=== PATIENT | female | born 1960 | race Caucasian/White ===

== ENCOUNTER 2024-03-18 14:38 | Outpatient (REF) | payer BC, SELFPAY ==
[2024-03-18 15:15] LABS: Influenza Virus A Antigen Negative; Influenza Virus B Antigen Negative; Internal Control Within Normal Limits; SARS-CoV-2 Ag POSITIVE (NEGATIVE)
[2024-03-18 15:16] LABS: Internal Control Within Normal Limits
== END 2024-03-18 14:39 | disposition home or self-care (01) ==
LOC: LAB 14:38
PROVIDERS: PCP Nurse Practitioner Family; Visit Provider Nurse Practitioner Family
DX: R05.1 Acute cough (principal); R68.83 Chills (without fever); R09.89 Other specified symptoms and signs involving the circulatory and respiratory systems; R50.9 Fever, unspecified; R52 Pain, unspecified
CPT/HCPCS: 87635; 87804; 87811

== ENCOUNTER 2024-07-23 14:41 | Emergency (ER) | payer OTHER, SELFPAY ==
[2024-07-23 14:49] VITALS: BP 139/65; PULSE 106; TEMP 36.6; O2SAT 96; BMI 21.0
--- NOTE | 2024-07-23 15:38 | ED.UPPEXIN1 ---
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 She sustained a laceration to the very distal tip of the left index finger with laceration of the corner of the fingernail. Bleeding is well-controlled at this time. Tetanus is up-to-date. She is on no blood thinners. No other associated injuries Related Data Home Medications ?Medication ?Instructions ?Recorded ?Confirmed alendronate 70 mg tablet mg PO 07/23/24 escitalopram oxalate 20 mg tablet mg 07/23/24 Previous Rx's ?Medication ?Instructions ?Recorded tramadol 50 mg tablet 50 mg PO Q6H PRN pain 3 days #12 07/23/24 tabs Allergies Allergy/AdvReac Type Severity Reaction Status Date / Time Sulfa (Sulfonamide Allergy Hives Verified 07/23/24 14:49 Antibiotics) Opioid HPI Opioid Management Most Recent Pain and Opioid Data: No Data to Display Review of Systems ROS Constitutional Denies: fever or chills Ears, nose, mouth, and throat Denies: throat pain or nasal congestion Respiratory Denies: shortness of breath Gastrointestinal Denies: nausea or vomiting Integumentary/Breast Denies: rash Neurological Denies: numbness in extremities or weakness in extremities Hematologic/Lymphatic Denies: easy bruising or easy bleeding PFSH PFSH Social History Little interest or pleasure in doing things: not at all Feeling down, depressed, or hopeless: not at all Exam Narrative Exam Narrative: Gen.: Awake, alert, in no distress Head: Normocephalic, atraumatic ENT: Moist mucous membranes Respiratory: No respiratory distress Extremities: 0.75 cm laceration that is a skin flap of the distal fingertip of the left second finger, 2 to 3 mm of the corner of the fingernail is avulsed as well. No bony laceration or deep laceration noted. Psych: Normal mood and affect Neuro: No focal neuro deficit Skin: Warm, dry Constitutional Vital Signs, click to edit/add: Last Vital Signs Temp 97.9 F 07/23/24 14:49 Pulse 106 H 07/23/24 14:49 Resp 16 07/23/24 14:49 BP 139/65 07/23/24 14:49 Pulse Ox 96 07/23/24 14:49 O2 Del Method Room Air 07/23/24 14:49 Course Vital Signs Vital signs: Vital Signs Temperature 97.9 F 07/23/24 14:49 Pulse Rate 106 H 07/23/24 14:49 Respiratory Rate 16 07/23/24 14:49 Blood Pressure 139/65 07/23/24 14:49 Pulse Oximetry 96 07/23/24 14:49 Oxygen Delivery Method Room Air 07/23/24 14:49 Temperature 97.9 F 07/23/24 14:49 Pulse Rate 106 H 07/23/24 14:49 Respiratory Rate 16 07/23/24 14:49 Blood Pressure 139/65 07/23/24 14:49 Pulse Oximetry 96 07/23/24 14:49 Oxygen Delivery Method Room Air 07/23/24 14:49 MDM - Extremity Injury (Upper) MDM Narrative Medical decision making narrative: Laceration repaired without difficulty. Please see procedure note for details. Follow-up with occupational health for suture removal. Tramadol given for home. Sutures removed in 9 to 10 days. Laceration repair: Done under sterile conditions. The use of Shur-Clens prep the area. Digital block with lidocaine 1% was used, approximately 4 cc. The wound was irrigated copiously with normal saline. The wound was explored there was no evidence of foreign material. The laceration was approximated with 4-0 nylon. Four simple interrupted sutures were placed. Patient tolerated the procedure well. The patient was neurovascularly intact post. the patient had bacitracin applied to the laceration and a dry sterile dressing was place. The patient will need to follow-up in the next 9-10 days for removal SUPERVISED APC VISIT, PHYSICIAN ATTESTATION: Based on the medical record the care appears appropriate. ? Medical Records Attestation: I reviewed the patient's medical records. Discharge Plan Discharge Chief Complaint: Extremity Injury, Upper Clinical Impression: Finger laceration Patient Disposition: Home, Self-Care Time of Disposition Decision: 16:18 Condition: Good Prescriptions / Home Meds: New tramadol 50 mg tablet 50 mg PO Q6H PRN (Reason: pain) 3 Days Qty: 12 0RF Rx Instructions: S61.219A No Action alendronate 70 mg tablet PO escitalopram oxalate 20 mg tablet Print Language: Greek Instructions: Finger Laceration (ED) Referrals: [facility] [place] [facility] [Outside] - 1 week (Suture removed with occupational health in 9-10 days) Physician,Non-Staff, [Primary Care Provider] - 1 week
[2024-07-23] MEDS: LIDOCAINE HCL 1% 100 MG/10 ML MDV INJ (15:56)
[2024-07-23] MEDS: BACITRACIN 0.9 GM PACKET 1 PACKET TOPICAL (15:57)
== END 2024-07-23 16:29 | disposition home or self-care (01) ==
PROVIDERS: Emergency Provider Emergency Medicine
DX: S61.311A Laceration without foreign body of left index finger with damage to nail, initial encounter (principal); W26.0XXA Contact with knife, initial encounter
CPT/HCPCS: 12001; 99283

== ENCOUNTER 2025-04-10 14:05 | Outpatient (OUT) | payer BC, SELFPAY ==
--- NOTE | 2025-04-10 | XR_ITS ---
[facility] [place] [id number] Patient Name: ARA BLACKBURN MRN: [id number] date: 1960 Sex: F Assigned Patient Location: [facility] Current Patient Location: [facility] Accession/Order Number: [id number] Exam Date: 04/10/2025 14:30 Report Date: 04/10/2025 14:47 At the request of: GRICEL MATIAS DPSharon Procedure: XR foot LT min 3V LEFT FOOT - 3 views CLINICAL HISTORY: Left Foot Pain Left foot pain for one month. Fell one month ago. COMPARISON: None FINDINGS: No focal soft tissue abnormality. Bones are grossly demineralized. No definitive fracture is seen. Plantar spurring. XR/XR foot LT min 3V IMPRESSION: NO ACUTE BONY PROCESS. Impression dictated by: Vamsi Rodarte Jr., D.OBrigette 04/10/2025 2:47 PM Dictation Location: [facility] Electronically authenticated by: [id number] Y Date: 04/10/2025 14:47
--- OUTSIDE RECORDS SUMMARY | 2025-04-10 14:10 | XMS_ITS | CCD ---
Author Organization [facility] Care Team Providers Care Water Quality Specialist Name Role Phone TYLOR, DR NICOLE Maradiaga Attending Unava ilable PENSIWILFRIDO, DR NICOLE Maradiaga Consulting Unava ilable HORACIOSIERO, DR NICOLE Maradiaga Admitting Unava ilable Brijesh Stevens Primary Care Physician Katie Valerio Unavailable Emery Park Primary Care Physician Olimpia Giron Unavailable Emery Park MD Primary Care Provider Emery Park MD Unavailable Emery Park Admitting Unavailable Emery Park Attending Unavailable Emery Park Referring Unavailable Emery Park Admitting Unavailable Emery Park Attending Unavailable Emery Park Referring Unavailable CHIDI GUERRERO Attending Unavailable RODRIGO LEPE Referring Unavailable CHIDI GUERRERO Attending Unavailable CHIDI GUERRERO Attending Unavailable CHIDI GUERRERO Attending Unavailable LISA MANUEL Attending Unavailable Unavailable Primary Care Provider UnavailAINSLEY Hernandes Attending Unavailable Allergies Allergy Classification Reported Allergen(s) Allergy Type Date of Onset Reaction(s) Facility Sulfamethizole (1 source) Sulfamethizole Drug Allergy 5 [facility] (1 source) Sulfonamide Drug allergy Unknown [facility] Other (1 source) Substance with sulfonamide structure and antibacterial mechanism of action (substance) Drug allergy Unknown [facility] Other (20 sources) Cephalexin; Translations: [CEPHALEXIN] Drug Allergy 3 [facility] (20 sources) Ciprofloxacin; Translations: [CIPROFLOXACIN] Drug Allergy 3 [facility] (20 sources) Sulfanilamide; Translations: [SULFANILAMIDE] Allergy to substance 3 Anaphylaxis [facility] (1 source) Sulfanilamide Drug Allergy 3 Anaphylaxis [facility] Medications Current Medications Medication Drug Class(es) Dates Sig (Normalized) Sig (Original) alendronic acid 70 mg oral tablet (20 sources) Bisphosphonate Start: 02-05-2023 End: 02-03-2025 take 1 tablet by mouth every week alendronate (FOSAMAX) 70 mg tablet Take 1 tablet (70 mg total) by mouth Once a week. 02/03/2025 Active take 1 tablet by mouth once constantin y Fosamax 70 MG 1 tablet 30 minutes before the first food, beverage or medicine of the day with plain water Orally Active amoxicillin 875 mg / clavulanate 125 mg oral tablet (4 sources) Penicillin-class Antibacterial Start: 03-18-2024 End: 03-28-2024 take 1 tablet by mouth in the morning amoxicillin-clavulanate (Augmentin) 875-125 MG tablet Indications: Chest congestion , Acute cough Take 1 tablet (875 mg) by mouth in the morning and 1 tablet (875 mg) before bedtime. Do all this for 10 days. 20 tablet 03/18/2024 03/28/2024 Active benzonatate 200 mg oral capsule (1 source) Non-narcotic Antitussive Start: 06-21-2023 take 1 capsule by mouth every eight hours Benzonatate 200 MG 1 capsule Orally Three times a day for 3 days Jun, Active busPIRone hydrochloride 5 mg oral tablet (20 sources) Start: 09-02-2023 take 1 tablet by mouth twice daily busPIRone (Buspar) 5 MG tablet Indications: Anxiety TAKE 1 TABLET BY MOUTH TWICE A DAY 180 tablet 1 09/02/2023 Active Start: 03-07-2023 take 1 tablet by raffaele th twice daily busPIRone (Buspar) 5 MG tablet Indications: Anxiety TAKE 1 TABLET BY MOUTH TWICE A DAY 180 tablet 1 03/07/2023 Active take 1 tablet by raffaele th every twenty-four hours busPIRone HCl 10 MG 1 tablet Orally ONCE A DAY Active calcium carbonate 1250 mg oral tablet (2 sources) take 1 tablet by raffaele th every twenty-four hours Calcium 500 MG 1 tablet with meals Orally Once a day Active take 1 tablet by raffaele th every twenty-four hours Calcium 500 MG 1 tablet with meals Orally Once a day Active cholecalciferol 0.05 mg oral tablet (20 sources) Vitamin D cholecalciferol, vitamin D3, 2,000 units tablet Active cholecalciferol (Vitamin D-3) 50 MCG (2000 UT) tablet 1 (one) time each day at the same time. Active diclofenac sodium 75 mg delayed release oral tablet (20 sources) Nonsteroidal Anti-inflammatory Drug Start: 08-12-2023 End: 08-11-2024 take 1 tablet by mouth in the morning diclofenac (Voltaren) 75 MG EC tablet Indications: Chronic bilateral low back pain without sciatica , Right hip pain , Left hip pain TAKE 1 TABLET BY MOUTH IN THE MORNING AND 1 TABLET BEFORE BEDTIME. DO NOT CRUSH, CHEW, OR SPLIT.. 60 tablet 3 12/25/2023 Active escitalopram 20 mg oral tablet (20 sources) Serotonin Reuptake Inhibitor Start: 11-19-2023 End: 11-17-2024 escitalopram (LEXAPRO) 20 mg tablet Take 1 tablet (20 mg total) by mouth. 11/17/2024 Active Start: 06-03-2023 take 1 tablet by raffaele th once daily escitalopram (Lexapro) 20 MG tablet Indications: Other depression (CMS/HCC) TAKE 1 TABLET BY MOUTH EVERY DAY 90 tablet 1 06/03/2023 Active take 1 tablet by raffaele th every twenty-four hours Lexapro 10 MG 1 tablet Orally Once a day Active fluticasone propionate 0.05 mg/actuat metered dose nasal spray (1 source) Corticosteroid Start: 06-21-2023 take 1 spray(s) nasal route once daily Fluticasone Propionate 50 MCG/ACT 1 spray in each nostril Nasally Once a day for Jun, Active ibuprofen 800 mg oral tablet (11 sources) Nonsteroidal Anti-inflammatory Drug Start: 04-25-2023 End: 04-24-2024 take 1 tablet by mouth in the morning, then take 1 tablet by mouth in the evening, then take 1 tablet by mouth at bedtime ibuprofen 800 MG tablet Indications: Chronic bilateral low back pain without sciatica Take 1 tablet (800 mg) by mouth in the morning and 1 tablet (800 mg) in the evening and 1 tablet (800 mg) before bedtime. 90 tablet 11 04/25/2023 04/24/2024 Active take 2-3 tablets by mouth three times daily at mealtime as needed Ibuprofen 200 MG 2-3 tablet with food or milk as needed Orally Three times a day Active Multiple Vitamins-Minerals ( Multivitamin Adults 50+) tablet (20 sources) Multiple Vitamin s-Minerals (Multivitamin Adults 50+) tablet Orally Active Multiple Vitamin s-Minerals (Multivitamin Adults 50+) tablet Orally 0 Active Multivitamin preparation (2 sources) take 1 tablet by mouth once daily Multi Vitamin - 1 tablet Orally Once a day Active naproxen 500 mg oral tablet (2 sources) Nonsteroidal Anti-inflammatory Drug take 1 tablet by mouth once daily at mealtime as needed Naproxen 500 MG 1 tablet with food or milk as needed Orally ONCE A DAY Active prednisoln al-ahxtrdxl-bmqrokq 1-0.5-0.075 % drops (1 source) Start: 5 prednisoln wz-rrwsyody-nrwxwz n 1-0.5-0.075 % drops Instill 1 drop to eye in the morning and 1 drop at noon and 1 drop in the evening and 1 drop before bedtime. 01/12/2025 Active Prednisolon-Moxiflox- Bromfenac 1-0.5-0.075 % solution (9 sources) Start: 5 Prednisolon-Moxifl ox-Bromfenac 1-0.5-0.075 % solution Indications: Age-related nuclear cataract of both eyes Administer 1 drop into affected eye(s) in the morning and 1 drop at noon and 1 drop in the evening and 1 drop before bedtime. 10 mL 1 01/12/2025 Active Vitamin D (Cholecalciferol) 10 MCG (400 UNIT) (2 sources) take 1 tablet by mouth once daily Vitamin D (Cholecalciferol) 10 MCG (400 UNIT) 1 tablet Orally Once a day Active zolpidem tartrate 5 mg oral tablet (19 sources) gamma-Aminobutyric Acid-ergic Agonist Start: 4 End: 5 zolpidem (Ambien) 5 MG tablet Indications: Other insomnia Take 1 tablet (5 mg) by mouth as needed at bedtime for sleep 30 tablet 2 01/16/2024 Active Completed/Discontinued Medications Medication Drug Class(es) Dates Sig (Normalized) Sig (Original) cyclobenzaprine hydrochloride 10 mg oral tablet (4 sources) Muscle Relaxant Start: 2 End: 4 take 1 tablet by mouth three times daily as needed cyclobenzaprine (Flexeril) 10 MG tablet TAKE 1 TABLET BY MOUTH THREE TIMES A DAY NEEDED FOR 10 DAYS 0 04/29/2022 08/12/2023 Discontinued 12 hr dextromethorphan hydrobromide 60 mg / guaiFENesin 1200 mg extended release oral tablet (2 sources) Uncompetitive V-qaqxhn-M-asparta te Receptor Antagonist, Sigma-1 Agonist Start: 3 End: 4 take 60-1200 mg by mouth every twelve hours as needed Dextromethorphan-guai FENesin ([facility] Mucus DM Extended Release) 60-1200 MG tablet sustained-release 12 hour TAKE 1 TABLET BY MOUTH EVERY 12 HOURS NEEDED FOR 14 DAYS 0 09/07/2022 08/12/2023 Discontinued methylPREDNISolone (4 sources) Corticosteroid Start: 2 End: 4 methylPREDNISolone (Medrol Dospak) 4 MG tablets TAKE 6 TABLETS ON DAY 1 DIRECTED ON PACKAGE AND DECREASE BY 1 TAB EACH DAY FOR A TOTAL OF 6 DAYS 0 04/29/2022 08/12/2023 Discontinued Start: 04-29-2022 methylPREDNISo lone 4 MG as directed Orally Once a day for 6 days Apr, Not-Taking/PRN 24 hr nicotine 0.583 mg/hr transdermal system (4 sources) Cholinergic Nicotinic Agonist Start: 09-07-2022 End: 08-12-2023 nicotine (Nicoderm, Step 2) 14 MG/24HR patch 1 (one) time each day at the same time. 0 09/07/2022 08/12/2023 Discontinued Start: 09-07-2022 End: 08-12-2023 nicotine (Nicoderm, Step 3) 7 MG/24HR patch 1 (one) time each day at the same time. 0 09/07/2022 08/12/2023 Discontinued temazepam 15 mg oral capsule (2 sources) Benzodiazepine Start: 09-07-2022 End: 08-12-2023 temazepam (Restoril) 15 MG capsule 1 (one) time each day at the same time. 0 09/07/2022 08/12/2023 Discontinued Problems Active Problems Problem Classification Problem Date Documented Date Episodic/Chronic Adjustment disorders (20 sources) Adjustment disorder with depressed mood; Translations: [Adjustment disorder with depressed mood] Onset: 04-25-2023 04-25-2023 Chronic Anxiety disorders (20 sources) Generalized anxiety disorder; Translations: [Generalized anxiety disorder] Onset: 04-25-2023 04-25-2023 Chronic Cataract (20 sources) Bilateral age-related nuclear cataracts; Translations: [Age-related nuclear cataract, bilateral] Onset: 01-12-2025 Resolved: 02-16-2025 01-12-2025 Chronic Influenza (1 source) Influenza due to other identified influenza virus with other respiratory manifestations Episodic Miscellaneous mental health disorders (20 sources) Psychophysiologic insomnia; Translations: [Psychophysiologic insomnia] Onset: 04-25-2023 04-25-2023 Chronic Mood disorders (20 sources) Recurrent major depressive episodes, mild ; Translations: [Major depressive disorder, recurrent, mild] Onset: 04-25-2023 08-13-2023 Chronic Osteoporosis (20 sources) Osteoporosis; Translations: [Age-related osteoporosis without current pathological fracture] Onset: 04-25-2023 04-25-2023 Chronic Other non-traumatic joint disorders (2 sources) Pain in right hip joint; Translations: [Pain in right hip] 08-12-2023 Episodic Other non-traumatic joint disorders (2 sources) Hip pain; Translations: [Pain in left hip] 08-12-2023 Episodic Residual codes; unclassified (2 sources) Insomnia; Translations: [Other insomnia] 01-16-2024 Chronic Residual codes; unclassified (1 source) Tobacco use and exposure - finding; Translations: [Tobacco use] 03-21-2025 Episodic Residual codes; unclassified (1 source) Tobacco use; Translations: [Tobacco use] Onset: 03-20-2025 Episodic Spondylosis; intervertebral disc disorders; other back problems (5 sources) Acute back pain with sciatica; Translations: [Lumbago with sciatica, right side] Episodic Unclassified (1 source) Illness Onset: 03-20-2025 Viral infection (4 sources) Disease caused by 2019-nCoV; Translations: [COVID-19] Onset: 03-20-2025 03-18-2024 Episodic Past or Other Problems Problem Classification Problem Date Documented Da te Episodic/Chronic Fever of unknown origin (2 sources) Fever; Translations: [Fever, unspecified] 03-18-2024 Episodic Nonspecific chest pain (2 sources) Musculoskeletal chest pain; Translations: [Other chest pain] 02-25-2024 Episodic Other circulatory disease (2 sources) Pulmonary congestion ; Translations: [Other specified symptoms and signs involving the circulatory and respiratory systems] 03-18-2024 Episodic Other lower respiratory disease (2 sources) Cough; Translations: [Acute cough] 03-18-2024 Episodic Residual codes; unclassified (2 sources) Chill; Translations: [Chills (without fever)] 03-18-2024 Episodic Residual codes; unclassified (2 sources) Generalized aches and pains; Translations: [Pain, unspecified] 03-18-2024 Episodic Unclassified (1 source) Contact with and (suspected) exposure to covid-19 Z20.822 Results Test Name Value Interpretation Reference Range Facil ity MA MAMM SCREEN W/CAD IF PERF AND 3D BILon 02-05-2025 Exam Date/Time: 02/03/2025 15:16 EDT Reason for Exam: Z12.31 Report IMPRESSION: BIRADS 2 BENIGN FINDINGS, NORMAL INTERVAL FOLLOW-UP Follow-up: 12 MONTH RECALL Breast Density: Heterogeneously dense, which may obscure small masses. Vascular calcifications: Present. EXAM: MA Mamm Screen w/CAD if perf and 3D Jacobo DATE: 02/03/2025 3:16 PM CLINICAL HISTORY: Z12.31. COMPARISONS: 05/27/2023, 04/17/2022, and 10/24/2016. TECHNIQUE: Routine full-field digital mammograms and 3D breast tomosynthesis were obtained of both breasts. FINDINGS: No significant changes are identified from the prior studies, given differences in technique and positioning. Stable asymmetries and benign microcalcifications. Dense Breast: Yes. CAD analysis was performed and used in the interpretation. Board Certified Radiologists. Accredited by the ACR and FDA. MAMMOGRAPHY IS VERY IMPORTANT TO YOUR HEALTH. THE CURRENT [place] [employer] AND [employer] GUIDELINES RECOMMENDS ANNUAL MAMMOGRAPHY BEGINNING AT AGE 40. THIS FACILITY UTILIZES A REMINDER SYSTEM TO ENSURE ALL PATIENTS RECEIVE REMINDER NOTIFICATIONS AT THE APPROPRIATE TIME BASED ON THE RECOMMENDATIONS OF THIS EXAM. Report Ordering Provider: Emery Park FINAL REPORT Dictated: 02/05/2025 9:37 am Sebastian Davalos MD Signed (Electronic Signature): 02/05/2025 9:37 am Signed by: Sebastian Davalos MD Transcribed by: GEE Technologist: RONAL Assessment: BI-RADS Category 2-Benign finding Recommendation: Normal interval follow-up [facility], Radiologist, MD - 02/05/2025 Exam Date/Time: 02/03/2025 15:16 EDT Reason for Exam: Z12.31 Report IMPRESSION: BIRADS 2 BENIGN FINDINGS, NORMAL INTERVAL FOLLOW-UP Follow-up: 12 MONTH RECALL Breast Density: Heterogeneously dense, which may obscure small masses. Vascular calcifications: Present. EXAM: MA Mamm Screen w/CAD if perf and 3D Jacobo DATE: 02/03/2025 3:16 PM CLINICAL HISTORY: Z12.31. COMPARISONS: 05/27/2023, 04/17/2022, and 10/24/2016. TECHNIQUE: Routine full-field digital mammograms and 3D breast tomosynthesis were obtained of both breasts. FINDINGS: No significant changes are identified from the prior studies, given differences in technique and positioning. Stable asymmetries and benign microcalcifications. Dense Breast: Yes. CAD analysis was performed and used in the interpretation. Board Certified Radiologists. Accredited by the ACR and FDA. MAMMOGRAPHY IS VERY IMPORTANT TO YOUR HEALTH. THE CURRENT [place] [employer] AND [employer] GUIDELINES RECOMMENDS ANNUAL MAMMOGRAPHY BEGINNING AT AGE 40. THIS FACILITY UTILIZES A REMINDER SYSTEM TO ENSURE ALL PATIENTS RECEIVE REMINDER NOTIFICATIONS AT THE APPROPRIATE TIME BASED ON THE RECOMMENDATIONS OF THIS EXAM. Report Ordering Provider: Emery Park FINAL REPORT Dictated: 02/05/2025 9:37 am Sebastian Davalos MD Signed (Electronic Signature): 02/05/2025 9:37 am Signed by: Sebastian Davalos MD Transcribed by: GEE Technologist: RONAL Assessment: BI-RADS Category 2-Benign finding Recommendation: Normal interval follow-up [facility] MA MAMM SCREEN W/CAD IF PERF AND 3D BILOrdered By: Radiologist Radiology on 02[facility]05-20[facility] Work Phone: MA Mamm Screen w/CAD if perf and 3D Bilon 02-05-2025 MA Mamm Screen w/CAD if perf and 3D Jacobo Exam Date/Time: 02/03/2025 15:16 EDT Reason for Exam: Z12.31 Report IMPRESSION: BIRADS 2 BENIGN FINDINGS, NORMAL INTERVAL FOLLOW-UP Follow-up: 12 MONTH RECALL Breast Density: Heterogeneously dense, which may obscure small masses. Vascular calcifications: Present. EXAM: MA Mamm Screen w/CAD if perf and 3D Jacobo DATE: 02/03/2025 3:16 PM CLINICAL HISTORY: Z12.31. COMPARISONS: 05/27/2023, 04/17/2022, and 10/24/2016. TECHNIQUE: Routine full-field digital mammograms and 3D breast tomosynthesis were obtained of both breasts. FINDINGS: No significant changes are identified from the prior studies, given differences in technique and positioning. Stable asymmetries and benign microcalcifications. Dense Breast: Yes. CAD analysis was performed and used in the interpretation. Board Certified Radiologists. Accredited by the ACR and FDA. MAMMOGRAPHY IS VERY IMPORTANT TO YOUR HEALTH. THE CURRENT [place] [employer] AND [employer] GUIDELINES RECOMMENDS ANNUAL MAMMOGRAPHY BEGINNING AT AGE 40. THIS FACILITY UTILIZES A REMINDER SYSTEM TO ENSURE ALL PATIENTS RECEIVE REMINDER NOTIFICATIONS AT THE APPROPRIATE TIME BASED ON THE RECOMMENDATIONS OF THIS EXAM. Report Ordering Provider: Emery Park FINAL REPORT Dictated: 02/05/2025 9:37 am Sebastian Davalos MD Signed (Electronic Signature): 02/05/2025 9:37 am Signed by: Sebastian Davalos MD Transcribed by: GEE Technologist: RONAL Assessment: BI-RADS Category 2-Benign finding Recommendation: Normal interval follow-up Normal [facility] MA MAMM SCREEN W/CAD IF PERF AND 3D BILon 02-03-2025 Radiology Study observation (narrative) [facility] [employer] Eye+Orbit - bilateralon 0 01-12-2025 Diagnosis: Cataract both eyes (OU) Testing Indication: Performed for preop measurements in the determination of an intraocular lens (IOL) for both eyes (OU) Test Reliability: Good quality both eyes (OU) Interpretation: Good measurements for intraocular lens (IOL) calculation purposes. Calculation made for both eyes (OU). [facility] Radiology Study observation (narrative) [facility] CT Chest, Low Dose Screening on 08-05-2024 CT Chest, Low Dose Screening Exam Date/Time: 04/21/2024 15:51 EDT Reason for Exam: F17.210 Addendum No coronary artery calcification identified. Ordering Provider: Emery Park FINAL REPORT Dictated: 08/05/2024 5:12 pm Shady Zamarripa MD Signed (Electronic Signature): 08/05/2024 5:12 pm Signed by: Shady Zamarripa MD Transcribed by: GEE Technologist: SHAY Report IMPRESSION: Lung RADS category 2: Benign appearance and behavior. Follow-up screening CT chest in [address] IMAGING OF THE CHEST WITHOUT INTRAVENOUS CONTRAST MEDIUM. HISTORY: Tobacco use. TECHNICAL FACTORS: Low dose CT imaging of the chest was obtained and formatted as 2.5 mm contiguous axial images from the thoracic inlet through the adrenal glands. Sagittal and coronal reconstructions obtained during postprocessing. Intravenous contrast medium: None. Comparison: 10/02/2022 FINDINGS: Right lung: Stable right apical fibrotic change. Pleural-based noncalcified 2.2 mm nodule lateral right upper lobe (series 3, image 51), stable. Similar 1.6 mm finding, right lower lobe (series 3, image 71), not present on prior study. No, consolidation, pleural effusion, pneumothorax. Left lung: Stable left apical fibrotic change. No nodules and no masses. No consolidation, pleural effusion, pneumothorax. Lymph nodes: No hilar, mediastinal, or axillary lymph node enlargement. Report Thoracic aorta: Normal in course and caliber. Cardiac Size: Normal. Pericardial effusion: None. Upper abdomen:Limited imaging upper abdomen shows no gross anomaly. Musculoskeletal:No osteoblastic, and no osteolytic lesions. Anterior wedging T12 vertebral body, stable. All CT scans at this facility use dose modulation, iterative reconstruction, and/or weight based dosing when appropriate to reduce radiation dose to as low as reasonably achievable. Ordering Provider: Emery Park FINAL REPORT Dictated: 04/23/2024 5:44 pm Shady Zamarripa MD Signed (Electronic Signature): 04/23/2024 5:44 pm Signed by: Shady Zamarripa MD Transcribed by: GEE Technologist: SHAY Report last revised on 08/05/2024 17:12 EST by Shady Zamarripa MD Normal [facility] INFLUENZA A AND B AGon 0 03-18-2024 INFLUENZA VIRUS A ANTIGEN Negative [facility] Comment on above: Negative for Flu A p rotein antigen. Infection due to Flu A cannot be ruled out. Flu A antigen in the sample may be below the detection limit of the test. INFLUENZA VIRUS B ANTIGEN Negative [facility] Comment on above: Negative for Flu B p rotein antigen. Infection due to Flu B cannot be ruled out. Flu B antigen in the sample may be below the detection limit of the test. [facility] COVID + FLU Quick Testingon 06-21-2023 SARS-CoV-2 (COVID-19) RNA AMINA+probe Ql (Unsp spec) Negative [facility] Other COVID + FLU Quick Testing Positive [facility] Other COVID + FLU Quick Testing Negative [facility] Other NM BONE SCAN LIMITon 021 NM BONE SCAN LIMIT EXAMINATION: NM BONE SCAN LIMIT HISTORY: Stress fracture of metatarsal bone of left foot COMPARISON: No relevant comparison available. TECHNIQUE: After obtaining the patient's consent, 25.2 mCi Tc-99m MDP was injected intravenously. Images were obtained approximately three hours later. FINDINGS: REGION IMAGED: Bilateral feet ABNORMALITIES: Delayed images demonstrate focal increased activity in the left midfoot forefoot junction likely within the intermediate cuneiform or base of the second metatarsal OTHER: Negative. IMPRESSION: Suspected fracture of the left intermediate cuneiform or base of the second metatarsal. Plain film correlation recommended Electronically authenticated by: HARJINDER WASHBURN Date: 2020-12-06 15:38 Normal [facility] Vital Signs Date Time Vital Sign Value Performing Clinician Facility 03-20-2025 16:57-0400 Body temperature 97.3 [degF] Ainsley Gonzalez APRN-BICYCLE REPAIRMAN Work Phone: [employer] 03-20-2025 16:57-0400 Body weight 66.22 kg Ainsley Gonzalez APRN-BICYCLE REPAIRMAN Work Phone: [employer] [facility] 03-20-2025 16:57-0400 Diastolic blood pressure 58 mm[Hg] Ainsley Gonzalez SUPERVISOR BEEHIVE KILN-BICYCLE REPAIRMAN Work Phone: [facility] 03-20-2025 16:57-0400 Heart rate 86 /min Ainsley Gonzalez SUPERVISOR BEEHIVE KILN-BICYCLE REPAIRMAN Work Phone: [facility] 03-20-2025 16:57-0400 Respiratory rate 18 /min Ainsley Gonzalez SUPERVISOR BEEHIVE KILN-BICYCLE REPAIRMAN Work Phone: [facility] 03-20-2025 16:57-0400 SaO2% (BldA) [Mass fraction] 96 % Ainsley Gonzalez SUPERVISOR BEEHIVE KILN-BICYCLE REPAIRMAN Work Phone: [facility] 03-20-2025 16:57-0400 Systolic blood pressure 114 mm[Hg] Ainsley Gonzalez SUPERVISOR BEEHIVE KILN-BICYCLE REPAIRMAN Work Phone: [facility] 01-16-2024 16:32-0400 Body height 170.2 cm Emery Park MD Work Phone: [facility] 01-16-2024 16:32-0400 Body mass index (BMI) [Ratio] 22.18 kg/m2 Emery Park MD Work Phone: [facility] 01-16-2024 16:32-0400 Body temperature 97.81 [degF] Emery Park MD Work Phone: [facility] 01-16-2024 16:32-0400 Body weight 64.23 kg Emery Park MD Work Phone: [facility] 01-16-2024 16:32-0400 Diastolic blood pressure 72 mm[Hg] Emery Park MD Work Phone: [facility] 01-16-2024 16:32-0400 Heart rate 85 /min Emery Park MD Work Phone: [facility] 01-16-2024 16:32-0400 SaO2% (BldA) [Mass fraction] 93 % Emery Park MD Work Phone: [facility] 01-16-2024 16:32-0400 Systolic blood pressure 118 mm[Hg] Emery Park MD Work Phone: [facility] 08-12-2023 14:59-0500 Body height 170.2 cm Emery Park MD Work Phone: [facility] 08-12-2023 14:59-0500 Body mass index (BMI) [Ratio] 22.46 kg/m2 Emery Park MD Work Phone: [facility] 08-12-2023 14:59-0500 Body temperature 97.59 [degF] Emery Park MD Work Phone: [facility] 08-12-2023 14:59-0500 Body weight 65.05 kg Emery Park MD Work Phone: [facility] 08-12-2023 14:59-0500 Diastolic blood pressure 68 mm[Hg] Emery Park MD Work Phone: [facility] 08-12-2023 14:59-0500 Heart rate 81 /min Emery Park MD Work Phone: [facility] 08-12-2023 14:59-0500 SaO2% (BldA) [Mass fraction] 96 % Emery Park MD Work Phone: [facility] 08-12-2023 14:59-0500 Systolic blood pressure 116 mm[Hg] Emery Park MD Work Phone: [facility] 06-21-2023 10:05-0500 Body height 172.72 cm Olimpia Mack Other [employer] Other 06-21-2023 10:05-0500 Body mass index (BMI) [Ratio] 21.5 kg/m2 Olimpia Mack Other [employer] Other 06-21-2023 10:05-0500 Body temperature 99 [degF] Olimpia Mack Other [employer] Other 06-21-2023 10:05-0500 Body weight 64.14 kg Olimpia Mack Other [employer] Other 06-21-2023 10:05-0500 Diastolic blood pressure 48 mm[Hg] Olimpia Mack Other [employer] Other 06-21-2023 10:05-0500 Respiratory rate 18 /min Olimpia Mack Other [employer] Other 06-21-2023 10:05-0500 SaO2% (BldA) [Mass fraction] 95 % Olimpia Mack Other [employer] Other 06-21-2023 10:05-0500 Systolic blood pressure 107 mm[Hg] Olimpia Mack Other [employer] Other 04-29-2022 14:15-0400 Body height 172.72 cm Katie Iman Other [employer] Other 04-29-2022 14:15-0400 Body mass index (BMI) [Ratio] 20.83 kg/m2 Katie Iman Other [employer] Other 04-29-2022 14:15-0400 Body temperature 98.1 [degF] Katie Iman Other [employer] Other 04-29-2022 14:15-0400 Body weight 62.14 kg Katie Iman Other [employer] Other 04-29-2022 14:15-0400 Diastolic blood pressure 64 mm[Hg] Katie Valerio Other [employer] Other 04-29-2022 14:15-0400 Respiratory rate 18 /min Katie Valerio Other [employer] Other 04-29-2022 14:15-0400 SaO2% (BldA) [Mass fraction] 94 % Katie Valerio Other [employer] Other 04-29-2022 14:15-0400 Systolic blood pressure 109 mm[Hg] Katie Valerio Other [employer] Other Encounters Encounter Date Encounter Type Care Provider Facility Start: 03-20-2025 End: 03-20-2025 ambulatory AINSLEY GONZALEZ [facility] Start: 03-20-2025 End: 03-20-2025 Office outpatient new 30 minutes Ainsley Gonzalez SUPERVISOR [employer] REPAIRMAN Work Phone: [facility] Comment on above: Viral illness (Prima ry Dx); Tobacco use Start: 02-23-2025 End: 02-23-2025 Postop follow up visit related to original px Chidi Guerrero DO Work Phone: [facility] Comment on above: Pseudophakia (Primar y Dx) Start: 02-23-2025 End: 02-23-2025 ambulatory CHIDI GUERRERO Not Available Start: 02-23-2025 End: 02-23-2025 Bamboo flowsheet Chidi Guerrero DO Work Phone: [facility] Start: 02-23-2025 End: 02-23-2025 Bamboo flowsheet Chidi Guerrero DO Work Phone: [facility] Start: 02-16-2025 End: 02-16-2025 Postop follow up visit related to original px Chidi Guerrero DO Work Phone: [facility] Comment on above: Pseudophakia (Primar y Dx) Start: 02-16-2025 End: 02-16-2025 ambulatory CHIDI GUERRERO Not Available Start: 02-16-2025 End: 02-16-2025 Bamboo flowsheet Chidi Whitehler DO Work Phone: [facility] Start: 02-16-2025 End: 02-16-2025 Bamboo flowsheet Chidi Whitehler DO Work Phone: [facility] Start: 02-10-2025 End: 02-10-2025 Bamboo flowsheet Chidi Nicole Zahler DO Work Phone: [facility] Start: 02-10-2025 End: 02-10-2025 Bamboo flowsheet Chidi Mesaer DO Work Phone: [facility] Start: 02-10-2025 End: 02-10-2025 ambulatory CHIDI GUERRERO Not Available Start: 02-10-2025 End: 02-10-2025 Postop follow up visit related to original px Chidi Guerrero DO Work Phone: [facility] Comment on above: Pseudophakia (Primar y Dx); Age-related nuclear cataract of left eye Start: 02-03-2025 End: 02-03-2025 ambulatory Emery Park [facility] Start: 02-03-2025 End: 02-05-2025 Clinisync Result Encounter Emery Park MD Work Phone: [facility] External Department Unsolicited Start: 02-03-2025 End: 02-05-2025 Clinisync Result Encounter Emery Park MD Work Phone: [facility] External Department Unsolicited Start: 01-30-2025 End: 02-03-2025 Refill Emery Park MD Work Phone: [facility] Comment on above: Age-related osteopor osis without current pathological fracture Start: 01-12-2025 End: 01-12-2025 Bamboo flowsheet Chidi Nicole Mosheruthie DO Work Phone: [facility] Start: 01-12-2025 End: 01-12-2025 Bamboo flowsheet Chidi Guerrero DO Work Phone: [facility] Start: 01-12-2025 End: 01-12-2025 Office outpatient new 45 minutes Chidi Corey Guerrero DO Work Phone: [facility] Comment on above: Age-related nuclear cataract of both eyes (Primary Dx) Start: 01-12-2025 End: 01-12-2025 ambulatory CHIDI GUERRERO Not Available Start: 01-01-2025 End: 01-01-2025 Telephone encounter Emery Park MD Work Phone: [facility] Comment on above: Request For Order(s) Start: 11-14-2024 End: 11-17-2024 Refill Emery Park MD Work Phone: [facility] Comment on above: Other depression Start: 05-16-2024 End: 05-18-2024 Refill Emery Park MD Work Phone: [facility] Comment on above: Other depression (CM S/HCC) Start: 04-21-2024 End: 04-21-2024 ambulatory Emery Park Facility[place] Start: 04-21-2024 End: 04-21-2024 Patient encounter procedure Emery Park [facility] Start: 03-18-2024 End: 03-18-2024 Bamboo flowsheet Lisa Manuel CARPET WEAVER Work Phone: [facility] Start: 03-18-2024 End: 03-18-2024 Bamboo flowsheet Lisa Manuel CARPET WEAVER Work Phone: [facility] Start: 03-18-2024 End: 03-18-2024 Clinisync Result Encounter Lisa J Howard CARPET WEAVER Work Phone: [facility] Unsolicited Start: 03-18-2024 End: 05-13-2024 Telephone encounter Lisa Garcia Manuel CARPET WEAVER Work Phone: [facility] Start: 03-18-2024 End: 03-18-2024 ambulatory LISA J MANUEL Not Available Start: 03-18-2024 End: 03-18-2024 Office outpatient visit 15 minutes Lisa J Howard CARPET WEAVER Work Phone: [facility] Comment on above: Chills (Primary Dx); Chest congestion; Acute cough; Fever, unspecified fever cause; Body aches; COVID Start: 02-25-2024 End: 02-28-2024 Telephone encounter Emery Park MD Work Phone: [facility] Start: 01-16-2024 End: 01-16-2024 Office outpatient visit 25 minutes Emery Park MD Work Phone: [facility] Comment on above: Other insomnia (Prim leonidas Dx); Musculoskeletal chest pain Start: 08-12-2023 End: 08-12-2023 Patient encounter procedure Emery Park [facility] Start: 08-12-2023 End: 08-12-2023 Office outpatient visit 25 minutes Emery Park MD Work Phone: [facility] Comment on above: Chronic bilateral lo w back pain without sciatica (Primary Dx); Right hip pain; Left hip pain; Major depressive disorder, recurrent, mild (F33.0) Start: 06-21-2023 End: 06-21-2023 ambulatory Olimpia Mack Other [employer] Other Start: 06-21-2023 Office outpatient vi sit 15 minutes Olimpia Mack [facility] Start: 05-27-2023 End: 05-27-2023 Patient encounter procedure S[facility]F REFERR[facility] Start: 10-02-2022 End: 10-02-2022 Patient encounter procedure Emery Park [facility] Start: 04-29-2022 End: 04-29-2022 ambulatory Katie Iman Other [facility] [employer] Other Start: 04-29-2022 Office outpatient ne w 20 minutes Katie Valerio [facility] Start: 04-17-2022 End: 04-17-2022 Patient encounter procedure Emery Park [facility] Start: 12-02-2020 End: 12-03-[address] NICOLE Maradiaga [facility] Facility: Procedures Date Procedure Procedure Detail Performing Clinician Start: 02-03-2025 MA MAMM SCREEN W/CAD IF PERF AND 3D JACOBO Emery Park MD Work Phone: Start: 02-03-2025 Mammography Emery Park MD Work Phone: Start: 01-12-2025 Oph bmtry prtl coher intrfrmtry io lens pwr madeline Chidi Guerrero DO Work Phone: Start: 03-18-[address] [facility] INFLUENZA A AND B AG Lisa Manuel NP Work Phone: Start: 04-25-2023 H/O: hysterectomy Status post hysterectomy Emery Park MD Work Phone: Start: 04-17-2022 Mammography Emery Park MD Work Phone: Plan of Treatment Date Care Activity Detail Author Start: 02-28-2034 DTaP,Tdap and Td Vaccines (2 - Td or Tdap) DTaP,Tdap and Td Vaccines (2 - Td or Tdap) [facility] Start: 05-04-2026 Screening for malign ant neoplasm of colon [facility] Start: 03-20-2026 Tobacco Screening Tobacco Screening [facility] Start: 02-03-2026 Screening for malign ant neoplasm of breast Mammogram [facility] Start: 03-08-2025 COVID-19 Vaccine ( season) COVID-19 Vaccine ( season) [facility] Start: 03-08-2025 Influenza vaccination [facility] Start: 02-23-2025 End: 02-23-2025 Patient encounter procedure 02/23/2025 3:00 PM EDT Office Visit [facility] [address] [place] [id number] Chidi Guerrero, DO [address] [place] [address] Arrived [facility] Comment on above: Arrived Start: 02-16-2025 End: 02-16-2025 Patient encounter procedure [facility] Comment on above: Arrived Start: 02-10-2025 End: 02-10-2025 Patient encounter procedure 02/10/2025 1:15 PM EDT Office Visit [facility] [address] [place] [address] Chidi Guerrero, DO [address] [place] [address] [facility] Start: 01-12-2025 End: 01-12-2025 Patient encounter procedure [facility] Comment on above: Arrived Start: 08-11-2024 End: 08-12-2024 XR Hip - left 3 Views XR hip left 2 or 3 views Imaging Routine Left hip pain Expected: 08/11/2024, Expires: 08/12/2024 [facility] Comment on above: Expected: 08/11/2024 , Expires: 08/12/2024 Start: 08-11-2024 End: 08-12-2024 XR Hip - right 3 Views XR hip right 2 or 3 views Imaging Routine Right hip pain Expected: 08/11/2024 (Approximate), Expires: 08/12/2024 [facility] Work Phone: Comment on above: Expected: 08/11/2024 (Approximate), Expires: 08/12/2024 Start: 08-11-2024 End: 08-12-2024 XR Lumbar spine 4 Views XR lumbar spine complete 4+ views Imaging Routine Chronic bilateral low back pain without sciatica Expected: 08/11/2024, Expires: 08/12/2024 [facility] Comment on above: Expected: 08/11/2024 , Expires: 08/12/2024 Start: 03-18-2024 End: 03-18-2025 COVID-19 ANTIGEN ([facility] COVID-19 ANTIGEN ([facility] Lab Routine Fever, unspecified fever cause Body aches Expected: 03/18/2024 (Approximate), Expires: 03/18/2025 [facility] Comment on above: Expected: 03/18/2024 (Approximate), Expires: 03/18/2025 Start: 03-18-2024 End: 03-18-2025 Influenza virus A+B Ag [Presence] in Unspecified specimen by Immunoassay Rapid influenza A/B antigens Microbiology Routine Chills Chest congestion Acute cough Fever, unspecified fever cause Body aches Expected: 03/18/2024 (Approximate), Expires: 03/18/2025 [facility] Work Phone: Comment on above: Expected: 03/18/2024 (Approximate), Expires: 03/18/2025 Start: 03-08-2024 Influenza vaccination Influenza Vacc ine (#1) [facility] Start: 04-17-2023 Screening for malign ant neoplasm of breast Mammogram [facility] Start: 1978 Adult BMI Screening Adult BMI Screen ing [facility] Start: 1972 Depression Screening Depression Scre ening [facility] Start: 1960 Screening for malign ant neoplasm of colon [facility] Start: 1960 Screening for malign ant neoplasm of lung Lung Cancer Screening Shared Decision Making [facility] Start: 1960 Tobacco Counseling Tobacco Counselin g [facility] Immunizations Immunization Date Immunization Notes Care Provider Fa keny 04-11-2024 influenza virus vacc ine, unspecified formulation Chidi Zahler DO Work Phone: [facility] 04-19-2023 Influenza, injectabl e, Madin Maru Canine Kidney, preservative free, quadrivalent Emery Park MD Work Phone: [facility] 04-19-2023 influenza virus vacc ine, unspecified formulation Emery Park MD Work Phone: [facility] 03-28-2022 influenza, injectabl e, quadrivalent, contains preservative Emery Park MD Work Phone: [facility] 07-22-2021 zoster vaccine recombinant Emery Park MD Work Phone: [facility] 05-19-2021 zoster vaccine recombinant Emery Park MD Work Phone: [facility] 04-20-2021 Influenza, injectabl e, Madin Maru Canine Kidney, preservative free, quadrivalent Emery Park MD Work Phone: [facility] 04-29-2019 influenza, injectabl e, quadrivalent, preservative free Emery Park MD Work Phone: [facility] 05-13-2018 influenza, seasonal, injectable, preservative free Emery Park MD Work Phone: [facility] 05-11-2018 Influenza, injectabl e, Madin Maru Canine Kidney, preservative free, quadrivalent Emery Park MD Work Phone: [facility] Payers Date Payer Category Payer [facility] Managed Care - Other [facility] [id number] 2019 [employer] Blue [employer] [id number] 2019 Unknown BCBS BCBS [id number] 2019-Present [phone] [id number] [place] [id number] 2019 Unknown [id number] 1960 Unknown [id number] 1960 Unknown [id number] 1960 Unknown [id number] 1960 Unknown [id number] 1960 Unknown [id number] 1960 Unknown [id number] 1960 Unknown [id number] 1960 Unknown [id number] 1960 Unknown [id number] 1959 Unknown [id number] Social History Date Type Detail Facility Tobacco smoking status [facility] Start: 08-12-2023 End: 03-20-2025 Sex Assigned At Female [facility] Start: 04-25-2023 End: 03-20-2025 Tobacco smoking status [facility] Smokes tobacco daily [facility] Start: 08-20-1979 History of tobacco use Cigarette Smo ker [facility] Start: 04-25-2023 End: 03-20-2025 Cigarettes smoked current (pack per day) - Reported 1 [facility] History of tobacco use Passive smoker [facility] Start: 04-25-2023 End: 03-02-2024 Tobacco use and exposure Smokeless tobacco non-user [facility] Start: 08-12-2023 End: 02-23-2025 Alcohol intake Lifetime non-drinker (finding) [facility] Within the last year , have you been afraid of your partner or ex-partner? No [facility] Within the last year , have you been humiliated or emotionally abused in other ways by your partner or ex-partner? Patient refused [facility] Are you now , , , , never or living with a partner? [facility] How often to you hav e a drink containing alcohol? 2-4 times a month [facility] How many standard dr inks containing alcohol do you have on a typical day? 1 or 2 [facility] How often do you hav e 6 or more drinks on 1 occasion? Never [facility] How hard is it for y ou to pay for the very basics like food, housing, medical care, and heating Somewhat hard [facility] Do you feel stress - tense, restless, nervous, or anxious, or unable to sleep at night because your mind is troubled all the time - these days [OSQ] To some extent [facility] (I/We) worried wheth er (my/our) food would run out before (I/we) got money to buy more. Never true [facility] Start: 1960 Sex Assigned At Not on file [facility] Start: 01-12-2025 Tobacco use and exposure User of smokeless tobacco [facility] Start: 11-19-2015 Sex Female (finding) [facility] Clinical Notes 04-29-2022 to 03-20-2025 Ainsley Gonzalez, SUPERVISOR [employer]EEHIVE K[employer]N-BICYCLE REPAIRMAN - 03/20/2025 4:30 PM EDTPatient InstructionsAttachmentsChidi Guerrero, DO - 02/23/2025 3:00 PM EDTChidi Guerrero, DO - 02/16/2025 3:00 PM EDT Note Date & Type Note Facility 03-20-2025 History of Presen t illness Narrative Subjective: Patient ID: Ml Lizama is a 64 y.o. female. Chief Complaint Patient presents with Illness Sx starting 3 weeks ago with headaches , nausea , fatigue , body aches ,chills , coughing , sinus pressure . Illness The current episode started 1 to 4 weeks ago (2-3 weeks prior). The problem has been waxing and waning since onset. The pain is moderate. Nothing aggravates the symptoms. Associated symptoms include congestion, headaches, fatigue, coughing and nausea. Pertinent negatives include no ear pain, sore throat, fever, chest pain, shortness of breath, wheezing, abdominal pain, vomiting or rash. (Nausea, fatigue, body aches, chills, cough, sinus pressure) Past treatments include one or more OTC medications (Mucinex DM, Benadryl. Helped a little. Ibuprofen and Tylenol, liquid IV). The treatment provided mild relief. It is unknown what precipitates the cough. The following portions of the patient's history were reviewed and updated as appropriate: allergies, current medications, past family history, past medical history, past social history, past surgical history and problem list. Review of Systems Constitutional: Positive for activity change, appetite change and fatigue. Negative for chills and fever. HENT: Positive for congestion, postnasal drip and sinus pressure. Negative for ear pain, sinus pain, sore throat and trouble swallowing. Respiratory: Positive for cough. Negative for chest tightness, shortness of breath and wheezing. Cardiovascular: Negative for chest pain and palpitations. Gastrointestinal: Positive for nausea. Negative for abdominal pain and vomiting. Musculoskeletal: Negative for myalgias. Skin: Negative for rash. Allergic/Immunologic: Negative. Neurological: Positive for headaches. Negative for dizziness and light-headedness. History reviewed. No pertinent past medical history. Past Surgical History: Procedure Laterality Date HYSTERECTOMY Social History Tobacco Use Smoking status: Every Day Types: Cigarettes History reviewed. No pertinent family history. Allergies Allergen Reactions Sulfanilamide Anaphylaxis Cephalexin Other Reaction(s): Tingling Tongue Ciprofloxacin Other Reaction(s): hives Current Outpatient Medications on File Prior to Visit Medication Sig Dispense Refill cholecalciferol, vitamin D3, 2,000 units tablet alendronate (FOSAMAX) 70 mg tablet 1 tablet (70 mg total) once a week. (Patient not taking: Reported on 03/20/2025) alendronate (FOSAMAX) 70 mg tablet Take 1 tablet (70 mg total) by mouth Once a week. (Patient not taking: Reported on 03/20/2025) escitalopram (LEXAPRO) 20 mg tablet Take 1 tablet (20 mg total) by mouth. (Patient not taking: Reported on 03/20/2025) prednisoln [id number]-[id number] 1-0.5-0.075 % drops Instill 1 drop to eye in the morning and 1 drop at noon and 1 drop in the evening and 1 drop before bedtime. (Patient not taking: Reported on 03/20/2025) No current facility-administered medications on file prior to visit. Objective: Vitals: 03/20/25 1657 BP: 114/58 Pulse: 86 Resp: 18 Temp: 36.3 C (97.3 F) TempSrc: Temporal SpO2: 96% Weight: 66.2 kg (146 lb) No LMP recorded. Patient has had a hysterectomy. The patient was not asked if she was . There is no height or weight on file to calculate BMI. No height and weight on file for this encounter. Physical Exam Vitals and nursing note reviewed. Constitutional: General: She is not in acute distress. Appearance: Normal appearance. She is well-developed. She is not ill-appearing. HENT: Right Ear: Hearing, tympanic membrane, ear canal and external ear normal. No middle ear effusion. Tympanic membrane is not erythematous. Left Ear: Hearing, tympanic membrane, ear canal and external ear normal. No middle ear effusion. Tympanic membrane is not erythematous. Nose: Congestion and rhinorrhea present. No mucosal edema. Rhinorrhea is clear. Right Sinus: No maxillary sinus tenderness or frontal sinus tenderness. Left Sinus: No maxillary sinus tenderness or frontal sinus tenderness. Mouth/Throat: Lips: [place]. Mouth: Mucous membranes are moist. Pharynx: Uvula midline. No posterior oropharyngeal erythema or uvula swelling. Tonsils: No tonsillar exudate. Eyes: General: No scleral icterus. Cardiovascular: Rate and Rhythm: Normal rate and regular rhythm. Heart sounds: Normal heart sounds, S1 normal and S2 normal. Pulmonary: Effort: Pulmonary effort is normal. No respiratory distress. Breath sounds: Normal breath sounds and air entry. Musculoskeletal: Cervical back: Normal range of motion and neck supple. Lymphadenopathy: Cervical: No cervical adenopathy. Skin: General: Skin is warm and dry. Capillary Refill: Capillary refill takes less than 2 seconds. Neurological: Mental Status: She is alert and oriented to person, place, and time. Psychiatric: Behavior: Behavior is cooperative. Assessment/Plan: Differential diagnoses: Allergy versus viral versus bacteria. --patient outside of treatment window for influenza and COVID, testing is deferred --trial of Claritin D twice daily. Fluticasone. Instructed on proper technique. --has a scheduled follow-up this coming week with PCP --additional treatment modalities as in the AVS --patient is COVID vaccinated, up to date. Ml was seen today for illness. Diagnoses and all orders for this visit: Viral illness Tobacco use Orders Placed or Reconciled This Encounter Medications prednisoln kw-fbvbwihk-azekezz 1-0.5-0.075 % drops Sig: Instill 1 drop to eye in the morning and 1 drop at noon and 1 drop in the evening and 1 drop before bedtime. escitalopram (LEXAPRO) 20 mg tablet Sig: Take 1 tablet (20 mg total) by mouth. cholecalciferol, vitamin D3, 2,000 units tablet alendronate (FOSAMAX) 70 mg tablet Si tablet (70 mg total) once a week. alendronate (FOSAMAX) 70 mg tablet Sig: Take 1 tablet (70 mg total) by mouth Once a week. Patient Instructions Consider immediate medical re-evaluation from a healthcare provider for continuing, worsening, concerning or new symptoms. Today's diagnosis is provisional one based on information available to the urgent care provider. The diagnosis may change as more information becomes available to the primary care physician. Contact your primary care physician's office within the next 1-2 business days to share the information that has been discussed with you during today's visit. If you do not have a primary care physician, please consider returning to urgent care or the nearest emergency dept. for evaluation of non-improving symptoms until you are established with a primary care practice. NEED A PROVIDER? -[facility] // or ppgdocs. If you have been prescribed any medications during your visit today, those medications have been discussed with you including: Dose, frequency, duration, and potential side effects. Every individual responds differently to each medication, please use caution until you understand how each medication affects you individually. If you have been recommended rhmn-dgl-zlzopho medications please use those medications as indicated on their packaging detail. This note is dictated with the use of M*Modal.Please note that this dictation was completed with computer voice recognition software. Quite often unanticipated grammatical, syntax, homophones, and other interpretive errors are inadvertently transcribed by the computer software. Please disregard these errors. Please excuse any errors that have escaped final proofreading. I personally discussed test results with patient/parent. Education handout and discharge papers given. Paperwork explained. Denies questions or concerns. Discussed that follow up care is usually required after a visit to the Urgent care. It is your responsibility to contact your primary care provider for follow up. If symptoms are not improving, worsening, or concerning symptoms of illness develop, follow up with your primary care provider or go to the nearest Emergency Department for further care immediately. FELIPE Mera 03/21/25 0721 documented in this encounter [employer] 03-20-2025 Instructions FELIPE Mera - 03/20/2025 4:30 PM EDT Consider immediate medical re-evaluation from a healthcare provider for continuing, worsening, concerning or new symptoms. Today's diagnosis is provisional one based on information available to the urgent care provider. The diagnosis may change as more information becomes available to the primary care physician. Contact your primary care physician's office within the next 1-2 business days to share the information that has been discussed with you during today's visit. If you do not have a primary care physician, please consider returning to urgent care or the nearest emergency dept. for evaluation of non-improving symptoms until you are established with a primary care practice. NEED A PROVIDER? -[facility] // or [facility]. If you have been prescribed any medications during your visit today, those medications have been discussed with you including: Dose, frequency, duration, and potential side effects. Every individual responds differently to each medication, please use caution until you understand how each medication affects you individually. If you have been recommended ahle-zih-xoolsfg medications please use those medications as indicated on their packaging detail. The following attachments cannot be sent through [facility] Everywhere.Quitting smoking for adults ([place])Environmental allergies in adults ([place])Cough? Adult ED ([place])documented in this encounter [facility] 02-23-2025 History of Presen t illness Narrative Images from the original note were not included. Assessment/Plan Diagnoses and all orders for this visit: Pseudophakia - s/p CE OS (POD #7): Patient provided with post-op form. Instructed to continue drops. Discontinue eye shield. Instructed to call immediately with increased pain, redness, decreased vision, questions or concerns. documented in this encounter [facility] 02-16-2025 History of Presen t illness Narrative Images from the original note were not included. Assessment/Plan Diagnoses and all orders for this visit: Pseudophakia - s/p CE OS (POD #1): Patient provided with post-op form. Instructed to continue drops as well as shield. Instructed to call immediately with increased pain, redness, decreased vision, questions or concerns. documented in this encounter [facility] 02-10-2025 History of Presen t illness Narrative Images from the original note were not included. Assessment/Plan Diagnoses and all orders for this visit: Pseudophakia - s/p CE OD (POD #7): Patient provided with post-op form. Instructed to continue drops. Discontinue eye shield. Instructed to call immediately with increased pain, redness, decreased vision, questions or concerns. Age-related nuclear cataract of left eye - Visually Significant Cataract, OS: I discussed the risks, benefits, alternatives, and expectations of cataract surgery. A complete ophthalmic exam was performed and it was determined that the cataracts were a primary source of vision decline, affecting activities of daily living, necessitating removal. Limited vision post-surgery may occur with pre-existing conditions affecting other areas of the eye or the brain was explained and the patient displayed an understanding. The overall objective is to improve ADLs, not eliminate glasses or restore vision to 20/20. Tests were reviewed - the different lens options were explained including the kld-yn-jfrefc fees for any upgrades. Intraocular lens (IOL) selection may be altered either prior to or during the procedure based on the doctor's discretion including reverting to a traditional intraocular lens (IOL). They understood that there will exist the potential of glasses prescription need post surgery for near, distance or possibly both. The patient stated a full understanding and a desire to proceed with the procedure. The patient received cataract measurements and had any additional questions answered. - A complete exam was performed including a physical exam: General: AAOx3 and NAD, Lungs: Clear, Heart: RRR, Abdomen: S/NT/ND, Extremities: no pitting edema. documented in this encounter [facility] 01-12-2025 History of Presen t illness Narrative Images from the original note were not included. Subjective Patient ID: Ml Lizama is a 64 y.o. female. Chief Complaint Cataract HPI Cataract In both eyes. Associated symptoms include blurred vision, glare and haloes. Severity is moderate. Onset was gradual. Frequency is constant. Context: distance vision, near vision, watching TV, computer work, driving and night driving. Since onset it is gradually worsening. Affected activities include driving and night driving. Treatments tried include glasses. Response to treatment was no improvement. Comments Pt referred by Dr. Lepe for cataract evaluation for the right eye (OD). Dr Lepe is unsure about the left eye (OS) needed cataract extraction (CE). Pt is having constant blurry vision in the right eye (OD), making it very difficult to drive, especially at night. No flomax No latex No pm or dfib Last edited by Chidi Guerrero DO on 01/12/2025 1:23 PM. Current Outpatient Medications (Ophthalmic Agents) Medication Sig Dispense Refill Fmezypybjlb-Fhlnqdon-Addswnwyo 1-0.5-0.075 % solution Administer 1 drop into affected eye(s) in the morning and 1 drop at noon and 1 drop in the evening and 1 drop before bedtime. 10 mL 1 No current facility-administered medications for this visit. (Ophthalmic Agents) Current Outpatient Medications (Other) Medication Sig Dispense Refill alendronate (Fosamax) 70 MG tablet TAKE 1 TABLET BY MOUTH ONE TIME PER WEEK 12 tablet 3 busPIRone (Buspar) 5 MG tablet TAKE 1 TABLET BY MOUTH TWICE A DAY 180 tablet 1 cholecalciferol (Vitamin D-3) 50 MCG (1999 UT) tablet 1 (one) time each day at the same time. diclofenac (Voltaren) 75 MG EC tablet TAKE 1 TABLET BY MOUTH IN THE MORNING AND 1 TABLET BEFORE BEDTIME. DO NOT CRUSH, CHEW, OR SPLIT.. 60 tablet 3 escitalopram (Lexapro) 20 MG tablet TAKE 1 TABLET BY MOUTH EVERY DAY 90 tablet 1 Multiple Vitamins-Minerals (Multivitamin Adults 50+) tablet Orally zolpidem (Ambien) 5 MG tablet Take 1 tablet (5 mg) by mouth as needed at bedtime for sleep 30 tablet 2 No current facility-administered medications for this visit. (Other) Past Medical History: Diagnosis Date Cataract Depression 03 16 22 Osteoporosis Scoliosis Allergies Allergen Reactions Sulfanilamide Anaphylaxis Cephalexin Other Reaction(s): Tingling Tongue Ciprofloxacin Other Reaction(s): hives Review of Systems Constitutional: Negative. HENT: Negative. Eyes: Negative. Respiratory: Negative. Cardiovascular: Negative. Gastrointestinal: Negative. Genitourinary: Negative. Musculoskeletal: Negative. Skin: Negative. Neurological: Negative. Psychiatric/Behavioral: Negative. Hematological: Negative. Endocrine: Negative. Allergic/Immunologic: Negative. Objective Base Eye Exam Visual Acuity (Snellen - Linear) Right Left Dist cc 20/50 20/40 -1 Correction: Glasses Tonometry (Applanation, 1:24 PM) Right Left Pressure 16 16 Pupils Pupils Right PERRL Left PERRL Visual Alvarez Left Right Full Full Extraocular Movement Right Left Full Full Neuro/Psych Oriented x3: Yes Dilation Both eyes: 1.0% Mydriacyl @ 1:05 PM Additional Tests Keratometry K1 [place] K2 [place] Right 44.00 169 44.75 79 Left 44.75 180 44.75 90 Glare Testing High Right 20/200 Left 20/100 Slit Lamp and Fundus Exam External Exam Right Left External Brow ptosis, Rosacea Brow ptosis, Rosacea Slit Lamp Exam Right Left Lids/Lashes Blepharitis, Dermatochalasis - upper lid Blepharitis, Dermatochalasis - upper lid Conjunctiva/Sclera White and quiet White and quiet Cornea Decreased tear film Decreased tear film Anterior Chamber Deep and quiet Deep and quiet Iris Round and reactive Round and reactive Lens 2+ Nuclear sclerosis, 2+ Cortical cataract, Vacuoles 2+ Nuclear sclerosis, 1+ Cortical cataract Anterior Vitreous Normal Normal Fundus Exam Right Left Disc Normal Normal Macula Normal Normal Vessels Normal Normal Periphery Normal Normal Refraction Wearing Rx Sphere Cylinder [place] Add Right -1.50 -0.75 158 +2.25 Left -2.00 -0.25 117 +2.00 Manifest Refraction Sphere Cylinder [place] Right -1.00 -0.75 113 Left -2.25 -0.25 063 Final Rx Sphere Cylinder [place] Dist [place] Right -1.00 -0.75 145 20/50 Left -2.25 -0.25 065 20/30 Expiration Date: 01/12/2026 Assessment/Plan Age-related nuclear cataract of both eyes - Visually Significant Cataract, OU: I discussed the risks, benefits, alternatives, and expectations of cataract surgery. A complete ophthalmic exam was performed and it was determined that the cataracts were a primary source of vision decline, affecting activities of daily living, necessitating removal. Limited vision post-surgery may occur with pre-existing conditions affecting other areas of the eye or the brain was explained and the patient displayed an understanding. The overall objective is to improve ADLs, not eliminate glasses or restore vision to 20/20. Tests were reviewed - the different lens options were explained including the zba-fq-rfemiy fees for any upgrades. Intraocular lens (IOL) selection may be altered either prior to or during the procedure based on the doctor's discretion including reverting to a traditional intraocular lens (IOL). They understood that there will exist the potential of glasses prescription need post surgery for near, distance or possibly both. The patient stated a full understanding and a desire to proceed with the procedure. The patient received cataract measurements and had any additional questions answered. - A complete exam was performed including a physical exam: General: AAOx3 and NAD, Lungs: Clear, Heart: RRR, Abdomen: S/NT/ND, Extremities: no pitting edema. - Coordination of care will be shared with Dr. Lepe. Cataract Surgery for OD will take place - 02/01 and OS - 02/15. documented in this encounter [facility] 01-01-2025 Telephone encounter Note Pt would like a mammogram, she [place] [facility] [facility] 01-01-2025 Miscellaneous Notes Pt would like a mammogram, she asked for it to be [place] [facility] documented in this encounter [facility] 05-13-2024 Telephone encounter Note error [facility] Work Phone: 05-13-2024 Miscellaneous Notes error documented in this encounter [facility] 03-18-2024 History of Presen t illness Narrative Ml Lizama is a 63 y.o. female presents with chief complaint of cough HPI: HPI Pt states she feels bad. Pt states exhauseted sore thraot for a week. Pt states she feels like it is allergies. But has been exposed to covid. Pt state symptoms started a week ago. Cough- unproducitve. Chest feels heavy upper respirotory sympoms. SUBJECTIVE: MEDICATIONS: Current Outpatient Medications Medication Instructions alendronate (Fosamax) 70 MG tablet TAKE 1 TABLET BY MOUTH ONE TIME PER WEEK amoxicillin-clavulanate (Augmentin) 875-125 MG tablet 875 mg, Oral, 2 times daily busPIRone (Buspar) 5 MG tablet TAKE 1 TABLET BY MOUTH TWICE A DAY cholecalciferol (Vitamin D-3) 50 MCG (1999 UT) tablet Every 24 hours diclofenac (Voltaren) 75 MG EC tablet TAKE 1 TABLET BY MOUTH IN THE MORNING AND 1 TABLET BEFORE BEDTIME. DO NOT CRUSH, CHEW, OR SPLIT.. escitalopram (LEXAPRO) 20 mg, Oral, Daily ibuprofen 800 mg, Oral, 3 times daily Multiple Vitamins-Minerals (Multivitamin Adults 50+) tablet Orally zolpidem (AMBIEN) 5 mg, Oral, Nightly PRN ALLERGIES: Allergies Allergen Reactions Sulfanilamide Anaphylaxis Cephalexin Other Reaction(s): Tingling Tongue Ciprofloxacin Other Reaction(s): hives REVIEW OF SYMPTOMS: Review of Systems Constitutional: Positive for fatigue and fever. HENT: Positive for congestion, rhinorrhea and sore throat. Voice change: lls. Respiratory: Positive for cough. OBJECTIVE: Visit Vitals OB Status Unknown Smoking Status Every Day BP Readings from Last 3 Encounters: 01/16/24 118/72 08/12/23 116/68 04/25/23 118/68 Wt Readings from Last 3 Encounters: 01/16/24 141 lb 9.6 oz 08/12/23 143 lb 6.4 oz 04/25/23 140 lb No results found for: HGBA1C Lab Results Component Value Date LDLCALC 135 (H) 05/27/2023 CREATININE 0.61 04/06/2022 Physical Exam Pulmonary: Effort: Pulmonary effort is normal. Neurological: Mental Status: She is alert and oriented to person, place, and time. Psychiatric: Mood and Affect: Mood normal. Judgment: Judgment normal. ASSESSMENT AND PLAN: Assessment/Plan Diagnoses and all orders for this visit: Chills - Rapid influenza A/B antigens; Future Chest congestion - amoxicillin-clavulanate (Augmentin) 875-125 MG tablet; Take 1 tablet (875 mg) by mouth in the morning and 1 tablet (875 mg) before bedtime. Do all this for 10 days. - Rapid influenza A/B antigens; Future Acute cough - amoxicillin-clavulanate (Augmentin) 875-125 MG tablet; Take 1 tablet (875 mg) by mouth in the morning and 1 tablet (875 mg) before bedtime. Do all this for 10 days. - Rapid influenza A/B antigens; Future Fever, unspecified fever cause - Rapid influenza A/B antigens; Future - COVID-19 [place]TIGEN [place] [place] Future Body aches - Rapid influenza A/B antigens; Future - COVID-19 ANTIGEN ([facility] [place] Future COVID test results positive. Patient advised to increase fluid intake, eating frequent small meals. Patient advised to monitor symptoms if worsening or persistent to return to clinic or go to ER. The updated Respiratory Virus Guidance recommends that people stay home and away from others until at least 24 hours after both their symptoms are getting better overall, and they have not had a fever (and are not using fever-reducing medication). It is important to note that the guidance doesn t end with staying home and away from others when sick. The guidance encourages added precaution over the next five days after time at home. All questions/concerns addressed. Patient voiced understanding and agreement with the plan. This visit was conducting via phone communication- All issues were discussed and addressed but no physical exam was conducted. If it is determined that the patient should be evaluated in the clinic, the patient will be directed to the appropriate clinic or venue. The patient or their guardian verbally consented to this visit. Phone time was 15 minutes discussing health issues with counseling and coordination of care. documented in this encounter [facility] 01-16-2024 History of Presen t illness Narrative Images from the original note were not included. Ml Lizama is a 63 y.o. female presents with chief complaint of Rib Injury (Pt here for right lower rib pain) HPI: History of Present Illness The patient is a 63-year-old female who presents for evaluation of multiple medical concerns. The patient reports experiencing fatigue and difficulty maintaining sleep, which she attributes to her 's demise. She expresses a desire to initiate a sleep aid, having previously tried trazodone, but found it ineffective. She typically awakens between 3:30 AM and 4:00 AM and retires to bed early. The patient believes she ruptured the cartilage under her rib approximately 4 weeks ago, which remains tender. She engages in frequent twisting and turning movements at her workplace and expresses a desire to have her lungs examined. She also reports an increased frequency of coughing. Her father has lung cancer. MEDICATIONS: Current Outpatient Medications Medication Instructions alendronate (Fosamax) 70 MG tablet TAKE 1 TABLET BY MOUTH ONE TIME PER WEEK busPIRone (Buspar) 5 MG tablet TAKE 1 TABLET BY MOUTH TWICE A DAY cholecalciferol (Vitamin D-3) 50 MCG (2000 UT) tablet Every 24 hours diclofenac (Voltaren) 75 MG EC tablet TAKE 1 TABLET BY MOUTH IN THE MORNING AND 1 TABLET BEFORE BEDTIME. DO NOT CRUSH, CHEW, OR SPLIT.. escitalopram (LEXAPRO) 20 mg, Oral, Daily ibuprofen 800 mg, Oral, 3 times daily Multiple Vitamins-Minerals (Multivitamin Adults 50+) tablet Orally ALLERGIES: Allergies Allergen Reactions Sulfanilamide Anaphylaxis Cephalexin Other Reaction(s): Tingling Tongue Ciprofloxacin Other Reaction(s): hives Review of Systems Constitutional: Negative for chills, fatigue and fever. Respiratory: Positive for cough. Negative for chest tightness, shortness of breath and wheezing. Cardiovascular: Negative for chest pain, palpitations and leg swelling. Gastrointestinal: Negative for abdominal pain, constipation, diarrhea, nausea and vomiting. Skin: Negative for rash. Neurological: Negative for dizziness and light-headedness. Medical, Surgical, Family, and Social History reviewed. OBJECTIVE: Visit Vitals BP 118/72 Pulse 85 Temp 97.8 F Ht 5' 7 Wt 141 lb 9.6 oz SpO2 93% BMI 22.18 kg/m OB Status Unknown Smoking Status Every Day BSA 1.74 m BP Readings from Last 3 Encounters: 01/16/24 118/72 08/12/23 116/68 04/25/23 118/68 Wt Readings from Last 3 Encounters: 01/16/24 141 lb 9.6 oz 08/12/23 143 lb 6.4 oz 04/25/23 140 lb Physical Exam Physical Exam Results ASSESSMENT AND PLAN: Assessment & Plan 1. Rib pain. Given the patient's smoking history, an annual CT scan is deemed necessary. 2. Insomnia. A prescription for Ambien 5 mg has been issued. Assessment/Plan Health Maintenance Due Topic Date Due Mammogram 04/17/2023 Influenza Vaccine (1) 03/08/2024 documented in this encounter [facility] 08-12-2023 History of Presen t illness Narrative Ml Lizama is a 62 y.o. female presents with chief complaint of lower back and hip pain. HPI: Pt here today for pain in lower back and hips. Pt states she has had pain and discussed pain before but it has been getting worse. She states she feels it right in the socket of both hips. She has low back pain. She states moving, stretching and ibuprofen helps but feels bad at the end of the day. Her job is pretty physical. SUBJECTIVE: MEDICATIONS: Current Outpatient Medications Medication Instructions alendronate (Fosamax) 70 MG tablet TAKE 1 TABLET BY MOUTH ONE TIME PER WEEK busPIRone (Buspar) 5 MG tablet TAKE 1 TABLET BY MOUTH TWICE A DAY cholecalciferol (Vitamin D-3) 50 MCG (1999) tablet Every 24 hours escitalopram (LEXAPRO) 20 mg, Oral, Daily ibuprofen 800 mg, Oral, 3 times daily Multiple Vitamins-Minerals (Multivitamin Adults 50+) tablet Orally ALLERGIES: Allergies Allergen Reactions Sulfanilamide Anaphylaxis Cephalexin Other Reaction(s): Tingling Tongue Ciprofloxacin Other Reaction(s): hives REVIEW OF SYMPTOMS: Review of Systems Constitutional: Negative for chills, fatigue and fever. HENT: Negative for congestion, ear pain, sinus pressure, sinus pain, sore throat and trouble swallowing. Eyes: Negative for pain and visual disturbance. Respiratory: Negative for cough, choking, chest tightness, shortness of breath and wheezing. Cardiovascular: Negative for chest pain and palpitations. Gastrointestinal: Negative. Genitourinary: Negative for difficulty urinating, dysuria and urgency. Musculoskeletal: Positive for back pain. Negative for arthralgias, joint swelling and myalgias. Skin: Negative. Neurological: Negative. Psychiatric/Behavioral: Negative. Endocrine: Negative. OBJECTIVE: Visit Vitals BP 116/68 Pulse 81 Temp 97.6 F Ht 5' 7 Wt 143 lb 6.4 oz SpO2 96% BMI 22.46 kg/m OB Status Unknown Smoking Status Every Day BSA 1.75 m Physical Exam Constitutional: Appearance: Normal appearance. HENT: Head: Normocephalic and atraumatic. Eyes: Extraocular Movements: Extraocular movements intact. Cardiovascular: Rate and Rhythm: Normal rate and regular rhythm. Pulmonary: Effort: Pulmonary effort is normal. Comments: Decreased air entry bilaterally Musculoskeletal: General: Normal range of motion. Cervical back: Normal range of motion. Comments: Little tenderness over right greater trochanter. Normal ROM of both hips. Paraspinal tightness especially at left lumbar. Rotation to the left 80 degrees, and to the right 65 degrees. Skin: General: Skin is warm and dry. Neurological: General: No focal deficit present. Mental Status: She is alert. Psychiatric: Mood and Affect: Mood normal. Behavior: Behavior normal. ASSESSMENT AND PLAN: Assessment/Plan Diagnoses and all orders for this visit: Chronic bilateral low back pain without sciatica Assessed. Xrays ordered. Diclofenac prescribed. - XR lumbar spine complete 4+ views; Future - diclofenac (Voltaren) 75 MG EC tablet; Take 1 tablet (75 mg) by mouth in the morning and 1 tablet (75 mg) before bedtime. Do not crush, chew, or split. Right hip pain Assessed. Xrays ordered. Diclofenac prescribed. - XR hip right 2 or 3 views; Future - diclofenac (Voltaren) 75 MG EC tablet; Take 1 tablet (75 mg) by mouth in the morning and 1 tablet (75 mg) before bedtime. Do not crush, chew, or split. Left hip pain Assessed. Xrays ordered. Diclofenac prescribed. - XR hip left 2 or 3 views; Future - diclofenac (Voltaren) 75 MG EC tablet; Take 1 tablet (75 mg) by mouth in the morning and 1 tablet (75 mg) before bedtime. Do not crush, chew, or split. Entered by _Hasmukh_, acting as scribe for Dr. Alarcon_. Signature _Michelle LUNDBERG_ Date _08/12/2023_. The documentation recorded by the scribe accurately reflects the service(s) I personally performed and the decisions I made. documented in this encounter [facility] 06-21-2023 Evaluation note Encounter Date Diagnosis Assessment Notes Jun, Contact with and (suspected) exposure to covid-19 (ICD-10 - Z20.822) Jun, Influenza A (ICD-10 - J10.1) You were seen here today for your cough, congestion, body aches for the past 5 days. You were tested for covid and flu. You tested positive for FLU A. Rest, drink plenty of fluids, take tylenol as needed for fever, discomfort/bod y aches. Tamiflu is not recommended as you are 5 days in with symptoms. You are being prescribed benzonatate or tessalon perles for your cough and flonase nasal spray for your congestion. Follow up with your primary doctor if symptoms persist. Go to the ER if you develop shorntess of breath, chest pain. [facility] Other 10-23-2022 Evaluation note* Encounter Date Diagnosis Assessment Notes Treatment Notes Treatment Clinical Notes Apr, Acute right-sided low back pain with right-sided sciatica (ICD-10 - M54.41) Take medications as directed. Use caution when operating machinery with muscle relaxer as it may cause drowsiness. Alternating heat and ice to area 3-4 times per day. Rest a lot Follow up with primary care if there is no symptom improvement within the next week, sooner if symptoms worsen or new symptoms occur., Sciatica home care material was printed [facility] Other Evaluation + Plan note No data available for this section [facility] Diagnosis Chronic bilateral low back pain without sciatica- Primary Right hip pain Pain in joint, pelvic region and thigh Left hip pain Pain in joint, pelvic region and thigh Major depressive disorder, recurrent, mild (F33.0) Major depressive disorder, recurrent episode, mild documented [facility]* Diagnosis Other depression (CMS/HCC) documented in this encounter [facility]* Diagnosis Other insomnia- Primary Musculoskeletal chest pain Other chest pain [facility] Diagnosis Chills- Primary Chills (without fever) Chest congestion Other symptoms involving respiratory system and chest Acute cough Fever, unspecified fever cause Body aches Generalized pain COVID [facility]* Diagnosis Other depression documented in this encounter [facility]* Diagnosis Age-related nuclear cataract of both eyes- Primary documented in this encounter [facility]* Diagnosis Age-related osteoporosis without current pathological fracture documented in this encounter [facility]* Diagnosis Pseudophakia- Primary Lens replaced by other means Age-related nuclear cataract of left eye documented in this encounter [facility]* Diagnosis Pseudophakia- Primary Lens replaced by other means documented in this encounter [facility]* Diagnosis Viral illness- Primary Unspecified viral infection, in conditions classified elsewhere and of unspecified site Tobacco use documented in this encounter [facility] - [facility]orted* Type Description Date Medical History ANXIETY Medical History DEPRESSION Medical History OSTEOPORESIS Surgical History Surgical History HYSTERECTOMY Surgical History KIDNEY STENTS X9 Hospitalization History SEE ABOVE [facility] Other Hospital Discharge instructions No data available for this section [facility] No data available for this section [facility] Summary Purpose Family History No Family History Records Found No data available for this section No data available for this section No data available for this section No Family History Records FoundNo Family History Records FoundNo Family History Records Found Advance Directives No Advanced Directives Records FoundNo Advanced Directives Records FoundNo Advanced Directives Records FoundNo Advanced Directives Records Found Additional Source Comments INFORMATION SOURCE (unrecogn ized section and content) DATE CREATED AUTHOR 12/07/2020 [facility] DATE CREATED AUTHOR AUTHOR'S ORGANIZ ATION 02/14/2025 [facility] DATE CREATED AUTHOR AUTHOR'S ORGANIZ ATION 02/25/2025 [facility] EPIC DATE CREATED AUTHOR AUTHOR'S ORGANIZ ATION 03/22/2025 [facility] Patient Care team informatio n (unrecognized section and content) Water Quality Specialist Relationship Specialty Start Date End Date Emery Park MD [address] [place] [address] PCP - General Family Medicine 11/13/22 Water Quality Specialist Relationship Specialty Start Date End Date Emery Park MD [address] [place] [address] PCP - [employer] [employer] 11/05/20 Emery Park MD [address] [place] [address] PCP - General Family Medicine 11/13/22 Water Quality Specialist Relationship Specialty Start Date End Date Emery Park MD [address] [place] [address] PCP - [facility] [employer] 11/05/20 Emery Park MD [address] [place] [address] PCP - General Family Medicine 11/13/22 Water Quality Specialist Relationship Specialty Start Date End Date Emery Park MD [address] [place] [address] PCP - [facility] 11/05/20 Emery Park MD [address] [place] [address] PCP - General Family Medicine 11/13/22 Water Quality Specialist Relationship Specialty Start Date End Date Emery Park MD [address] [place] [address] PCP - [facility] [employer] 11/05/20 Emery Park MD [address] [place] [address] PCP - General Family Medicine 11/13/22 Water Quality Specialist Relationship Specialty Start Date End Date Emery Park MD [address] [place] [address] PCP - [facility] 11/05/20 Emery Park MD [address] [place] [address] PCP - General Family Medicine 11/13/22 Water Quality Specialist Relationship Specialty Start Date End Date Emery Park MD [address] [place] [address] PCP - General Family Medicine 11/13/22 Water Quality Specialist Relationship Specialty Start Date End Date Emery Park MD [address] [place] [address] PCP - General Family Medicine 11/13/22 Water Quality Specialist Relationship Specialty Start Date End Date Emery Park MD [address] [place] [address] PCP - General Family Medicine 11/13/22 Water Quality Specialist Relationship Specialty Start Date End Date Emery Park MD [address] [place] [address] PCP - General Family Medicine 11/13/22 Water Quality Specialist Relationship Specialty Start Date End Date Emery Park MD [address] [place] [address] PCP - General Family Medicine 11/13/22 Water Quality Specialist Relationship Specialty Start Date End Date Emery Park MD [address] [place] [address] PCP - General Family Medicine 11/13/22 Water Quality Specialist Relationship Specialty Start Date End Date Emery Park MD [address] [place] [address] PCP - General Family Medicine 11/13/22 Water Quality Specialist Relationship Specialty Start Date End Date Emery Park MD [address] [place] [address] PCP - General Family Medicine 11/13/22 Water Quality Specialist Relationship Specialty Start Date End Date Emery Park MD [address] [place] [address] PCP - General Family Medicine 11/13/22 REASON FOR VISIT (unrecogniz ed section and content) Reason Comments Med Refill Reason Comments Rib Injury Pt here for right lo wer rib pain Reason Onset Date Comments Request For Order(s) 01/01/2025 Reason Comments Cataract Reason Comments Post-op Follow-up Cataract Reason Comments Post-op Follow-up Reason Comments Post-op Reason Comments Illness Sx starting 3 weeks ago with headaches , nausea , fatigue , body aches ,chills , coughing , sinus pressure . FOR RECORDS PERTAINING TO PATIENTS WHO ARE OR HAVE BEEN ENROLLED IN A CHEMICAL DEPENDENCY/SUBSTANCEABUSE PROGRAM, SOME INFORMATION MAY BE OMITTED. This clinical summary was aggregated from multiple sources. Caution should be exercised in using it in the provision of clinical care. This summary normalizes information from multiple sources, and as a consequence, information in this document may materially change the coding, format and clinical context of patient data. In addition, data may be omitted in some cases. CLINICAL DECISIONS SHOULD BE BASED ON THE PRIMARY CLINICAL RECORDS. [employer] provides no warranty or guarantee of the accuracy or completeness of information in this document.
== END 2025-04-10 14:06 | disposition home or self-care (01) ==
PROVIDERS: PCP Family Medicine; Visit Provider Podiatrist Foot & Ankle Surgery
DX: M79.672 Pain in left foot (principal)
CPT/HCPCS: 73630

== ENCOUNTER 2025-04-20 14:24 | Outpatient (OUT) | payer BC, SELFPAY ==
--- OUTSIDE RECORDS SUMMARY | 2025-04-12 08:00 | XMS_ITS ---
Author Organization [employer] [facility] Address [address] [address], [place] [address] Care Team Providers Care Dietary Director Name Role Phone Emery Mcclain Unavailable [phone] Allergies Allergen (clinical drug ingredient) Drug/Non Drug Allergy documented on EMR Reaction Allergy Type Onset Date Status Substance with sulfonamide structure and antibacterial mechanism of action (substance) Sulfa Antibiotics Unknown Drug Allergy Active REASON FOR VISIT Left Foot Pain Medications Medication SIG (Take, Route, Frequency, Duration) Notes Start Date End Date Status Alendronate Sodium 70 MG Tablet Oral; Duration: 84 Days Acti ve Multivitamin Active Vitamin D Active Social History Section Notes: Patient is a current smoker. Social alcohol use. Encounters Encounter Location Date Provider Diagnosis [facility] [address] [address], [place] [address] 04/12/2025 Emery Mcclain Stress fracture of metatarsal bone of left foot, initial encounter M84.375A Assessments Encounter Date Diagnosis (ICD Code) Assessment Notes Treatment Notes Treatment Clinical Notes Section Notes 04/12/2025 Stress fracture of metatarsal bone of left foot, initial encounter (ICD-10 - M84.375A) Patient was seen and evaluated. Patient education provided and all questions answered to satisfaction. I recommended nonsurgical treatment at this time. Treatment advices included: - RICE therapy as well as shoe and activity modification - CAM boot prescription was provided. She will need the CAM boot for up to a year to provide stability and allow her to perform ADLs safely. - Discussed medications and potential side effect. Medication(s) recommended OTC tylenol/ibuprofen - Imaging ordered: xrays were reviewed and there is irregularity of the medial cortex of 2nd metatarsal shaft which may indicate stress reaction. MRI was recommended and ordered for further evaluation Plan Of Treatment Treatment Notes Assessment Notes Stress fracture of metatarsa l bone of left foot, initial encounter Patient was seen and evaluated. Patient education provided and all questions answered to satisfaction. I recommended nonsurgical treatment at this time. Treatment advices included: - RICE therapy as well as shoe and activity modification - CAM boot prescription was provided. She will need the CAM boot for up to a year to provide stability and allow her to perform ADLs safely. - Discussed medications and potential side effect. Medication(s) recommended OTC tylenol/ibuprofen - Imaging ordered: xrays were reviewed and there is irregularity of the medial cortex of 2nd metatarsal shaft which may indicate stress reaction. MRI was recommended and ordered for further evaluation Next Appt Details Follow Up: after MRI, Reason : History and Physical Notes * HPI (History of Present Illness) Category Sub-Category Detail Notes Category Not es Foot Ml is a 64F w ith osteoporosis on Fosamax weekly who has history of multiple metatarsal stress fractures. She relates to a foot/ankle twist in the yard ~6 weeks ago. Since that injury she's had a nagging pain in her left forefoot which she relates feels like her previous stress fractures. She relates to swelling but no brusing. Examination Category Sub-Category Detail Notes Category Not es General Examination Skin: Skin intact. No sign of infection Neuro: LTS intact to plantar and dorsal foot. Negative tinel's sign Vasc: pedal pulses are palpable. No calf pain on squeeze MSK: POP 2nd and 4th metatarsal shafts. Mild swelling to left dorsal foot. No deformity. 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 She relates to a foot/ankle twist in the yard ~6 weeks ago. Since that injury she's had a nagging pain in her left forefoot which she relates feels like her previous stress fractures. She relates to swelling but no brusing. * ROS: G eneral / Constitutional: Patient denies change in appetite, chills, fatigue, fever. Allergy / Immunology: Patient denies blistering skin, cough, congestion, itching, rash. Endocrine: Patient denies cold intolerance, excessive sweating, excessive thirst, frequent urination, hair loss. Respiratory: Patient denies chest pain, cough, pain with inspiration, shortness of breath. Cardiovascular: Patient denies chest pain, claudication, dyspnea on exertion, palpitations. Gastrointestinal: Patient denies abdominal pain, nausea, vomiting. Hematology: Patient denies bleeding problems, anemia. Peripheral Vascular: Patient denies absent pulses in feet, blood clots in legs, cold extremities, pain / cramping in legs after exertion. Skin: Patient denies changing moles, hair changes, keloid formation, nail changes, ulcerations. Neurologic: Patient denies tingling / numbness, stroke, paralysis, loss of use of extremity. * Medical History: Arthritis Medical History Verified * Surgical History: Hysterectomy Kidney Stents Surgical History verified. * Family History: F ather: diagnosed with Other malignant neoplasm without specification of site. S ister: diagnosed with Other malignant neoplasm without specification of site. F amily History Verified..? * Social History: Social History Verified. P christiano is a current smoker. Social alcohol use. * Medications: T akingVitamin D Multivitamin Alendronate Sodium 70 MG Tablet Oral Medication List reviewed and reconciled with the patientTaking Vitamin D Taking Multivitamin Taking Alendronate Sodium 70 MG Tablet Oral Medication List reviewed and reconciled with the patient * Allergies: S ulfa AntibioticsyesAllergies Verified. Objective: * Examination: G eneral Examination: S kin: Skin intact. No sign of infection Neuro: LTS intact to plantar and dorsal foot. Negative tinel's sign Vasc: pedal pulses are palpable. No calf pain on squeeze MSK: POP 2nd and 4th metatarsal shafts. Mild swelling to left dorsal foot. No deformity. Assessment: * Assessment: 1. S tress fracture of metatarsal bone of left foot, initial encounter - M84.375A (Primary)? Plan: * Treatment: * Follow Up: a fter MRI Billing Information: * Visit Code: 96362 Office Visit, New Pt., Level 3. * Procedure Codes: * Sign off status: Completed true * Provider: Rocky Mcclain DPM Date: Generated for Terrell fonseca/Felipa/Olvier on: 02:28 PM EDT
--- OUTSIDE RECORDS SUMMARY | 2025-04-20 14:28 | XMS_ITS | Encounter Summary ---
Author Organization [facility] Address [address] [facility] [place] [address] Care Team Providers Care Utility Clerk Name Role Phone Emery Park MD Primary Care Provider Encounter Details Date Type Department Care Team (Late st Contact Info) Description 02/25/2025 [facility] [address] [place] [address] Lisa Lawrence, [employer]ED [employer]ARD ASSEMBLER [address] [place] [address] ADOLFO MAMM SCREEN W/CAD IF PERF AND 3D ANGEL Social History Tobacco Use Types Packs/Day Years Used Date Smoking Tobacco: Every Day Cigarettes 1 45.7 Started: 08/20/1979 Passive Smoke Exposure: Current Smokeless Tobacco: Current Alcohol Use Standard Drinks/Week Comments Never 0 (1 standard drink = 0.6 oz pur e alcohol) Humiliation, Afraid, Rape, and Kick questionnair e Answer Date Recorded Within the last year, have y ou been afraid of your partner or ex-partner? No 08/12/2023 Within the last year, have y ou been humiliated or emotionally abused in other ways by your partner or ex-partner? Patient declined 08/12/2023 Within the last year, have y ou been kicked, hit, slapped, or otherwise physically hurt by your partner or ex-partner? No 08/12/2023 Within the last year, have y ou been raped or forced to have any kind of sexual activity by your partner or ex-partner? No 08/12/2023 Social Connection and Isolation Panel Answer Date Recorded In a typical week, how many times do you talk on the phone with family, friends, or neighbors? More than three times a week 08/12/2023 How often do you get togethe r with friends or relatives? Twice a week 08/12/2023 How often do you attend chur ch or hindu services? Never 08/12/2023 Do you belong to any clubs o r organizations such as religion groups, unions, fraternal or athletic groups, or school groups? No 08/12/2023 How often do you attend meet ings of the clubs or organizations you belong to? Patient declined 08/12/2023 Are you , , di vorced, , never , or living with a partner? 08/12/2023 AUDIT-C Answer Date Recorded Q1: How often do you have a drink containing alc ohol? 2-4 times a month 08/12/2023 Q2: How many drinks containi ng alcohol do you have on a typical day when you are drinking? 1 or 2 08/12/2023 Q3: How often do you have si x or more drinks on one occasion? Never 08/12/2023 Overall Financial Resource Strain (CARDIA) Answe r Date Recorded How hard is it for you to pa y for the very basics like food, housing, medical care, and heating? Somewhat hard 08/12/2023 PHQ-2 Answer Date Recorded Patient Health Questionnaire-2 Score 0 04/25/2023 [facility] Questionnaire Answer Date Recorded Do you feel stress - tense, restless, nervous, or anxious, or unable to sleep at night because your mind is troubled all the time - these days? To some extent 08/12/2023 Exercise Vital Sign Answer Date Recorde d On average, how many days pe r week do you engage in moderate to strenuous exercise (like a brisk walk)? 7 days 08/12/2023 On average, how many minutes do you engage in exercise at this level? 150+ min 08/12/2023 Hunger Vital Sign Answer Date Recorded Within the past 12 months, y ou worried that your food would run out before you got the money to buy more. Never true 08/12/19 24 Within the past 12 months, t he food you bought just didn't last and you didn't have money to get more. Never true 08/12/2023 PRAPARE - Transportation Answer Date Re corded In the past 12 months, has l ack of transportation kept you from medical appointments or from getting medications? No 11/2023 In the past 12 months, has l ack of transportation kept you from meetings, work, or from getting things needed for daily living? No 08/12/2023 Housing Stability Vital Sign Answer Jey e Recorded In the last 12 months, was t here a time when you were not able to pay the mortgage or rent on time? No 08/12/2023 In the last 12 months, how many places have you lived? 1 08/12/2023 In the last 12 months, was t here a time when you did not have a steady place to sleep or slept in a fdc (including now)? No 08/12/2023 Comments Unknown Sex and Gender Information Value Date Recorded Sex Assigned at Not on file Legal Sex Female 6:46 PM EDT Gender Identity Not on file Sexual Orientation Not on file documented as of this encounter Plan of Treatment Upcoming Encounters Date Type Department Care Team (Late st Contact Info) Description 04/26/2025 3:45 PM EDT Office Visit [facility] [address] [place] [address] Emery Park MD [address] [place] [address] documented as of this encounter Visit Diagnoses Not on filedocumented in this encounter Care Teams Utility Clerk Relationship Specialty Start Date End Date Emery Park MD [address] [place] [address] PCP - General Family Medicine 11/13/22 documented as of this encounter
--- OUTSIDE RECORDS SUMMARY | 2025-04-20 14:28 | XMS_ITS | Encounter Summary ---
Author Organization [facility] Address [address] [place] [address] Care Team Providers Care Veneer Puller Name Role Phone Emery Park MD Unavailable [phone] Emery Park MD Primary Care Provider [phone] Encounter Details Date Type Department Care Team (Late st Contact Info) Description 08/12/2023 Clinisync Result Encounter [facility] Unsolicited Emery Park MD [address] [place] [address] Social History Tobacco Use Types Packs/Day Years Used Date Smoking Tobacco: Every Day Cigarettes Passive Smoke Exposure: Current Smokeless Tobacco: Never Alcohol Use Standard Drinks/Week Comments Never 0 [...] often do you attend chur ch or holiness services? Never 08/12/2023 Do you belong to any clubs o r organizations such as yazidism groups, unions, fraternal or athletic groups, or [...] Recorded Patient Health Questionnaire-2 Score 0 04/25/2023 [facility] - Occupational Stress Questionnaire Answer [...] place to sleep or slept in a nursing home (including now)? No 08/12/2023 Comments Unknown Sex and Gender Information Value Date Recorded Sex Assigned at Not on file Legal Sex Female 6:46 PM EDT Gender Identity Not on file Sexual Orientation Not on file documented as of this encounter Functional Status * AUDIT-C Score Answer Date of Assessment Author 2 08/12/2023 9:19 AM EST Mychart, Generic * Q1: How often do you have a drink containing alcohol? Answer Date of Assessment Author 2-4 times a month 08/12/2023 9:19 AM EST Mychart , Generic * Q2: How many drinks containing alcohol do you have on a typical day when you are drinking? Answer Date of Assessment Author 1 or 2 08/12/2023 9:19 AM EST Mychart, Generic * Q3: How often do you have six or more drinks on one occasion? Answer Date of Assessment Author Never 08/12/2023 9:19 AM EST Mychart, Generic documented as of this encounter Plan of Treatment Upcoming Encounters Date Type Department Care Team (Late st Contact Info) Description 04/26/2025 3:45 PM EDT Office Visit [facility] [address] [place] [address] Emeyr Park MD [address] [place] [address] documented as of this encounter Procedures Procedure Name Priority Date/Time Associated Diagnosis Comments XR HIP BILAT 2 VIEWS + PELVIS 08/12/2023 4:02 PM EST documented in this encounter Results * XR HIP BILAT 2 VIEWS + PELVIS (08/12/2023 4:02 PM EST) Anatomical Region Laterality Modality Other 08/12/2023 4:02 PM EST Narrative 08/13/2023 8:15 AM EST Exam Date/Time: 08/12/2023 16:33 EST Reason for Exam: M25.552 Report IMPRESSION: There are no acute osseous changes. CLINICAL HISTORY: M25.552 2 views COMPARISON: NONE. Right hip FINDINGS: There are no lytic or sclerotic bone lesions. The femoral heads are located. There is no acute fracture or subluxation. There are no radiopaque foreign bodies. Ordering Provider: Emery Park FINAL REPORT Dictated: 08/13/2023 8:12 am Dante Griffin MD, V. Signed (Electronic Signature): 08/13/2023 8:12 am Signed by: Dante Griffin MD, V. Transcribed by: GEE Technologist: SHAY Technical Comments Radiation Dose: Ka,r in mGy = na DAP = na Procedure Note Radiology, Radiologist, MD - 08/13/2023 Exam Date/Time: 08/12/2023 16:33 EST Reason for Exam: M25.552 Report IMPRESSION: There are no acute osseous changes. CLINICAL HISTORY: M25.552 2 views COMPARISON: NONE. Right hip FINDINGS: There are no lytic or sclerotic bone lesions. The femoral heads are located. There is no acute fracture or subluxation. There are no radiopaque foreign bodies. Ordering Provider: Emery Park FINAL REPORT Dictated: 08/13/2023 8:12 am Dante Griffin MD, V. Signed (Electronic Signature): 08/13/2023 8:12 am Signed by: Dante Griffin MD, V. Transcribed by: GEE Technologist: SHAY Technical Comments Radiation Dose: Ka,r in mGy = na DAP = na Emery Park MD [facility] Final Result documented in this encounter Visit Diagnoses Not on filedocumented in this encounter Care Teams Veneer Puller Relationship Specialty Start Date End Date Emery Park MD [address] [place] [address] PCP - Tammy Trammell 11/05/20 Emery Park MD [address] [place] [address] PCP - General Family Medicine 11/13/22 documented as of this encounter
--- OUTSIDE RECORDS SUMMARY | 2025-04-20 14:28 | XMS_ITS | Clinical Summary ---
Author Organization [facility] Address [address] [place] [address] Care Team Providers Care Gallery Intern Name Role Phone Gricel Joaquin MD Primary Care Provider [phone] Allergies Active Allergy Reactions Criticality Noted Date Comments Cephalexin 04/25/2023 Other Reaction(s): Tingling Tongue Ciprofloxacin 04/25/2023 Other Reaction(s): hives Sulfanilamide Anaphylaxis High 04/25/2023 Medications cholecalciferol (Vitamin D-3) 50 MCG (1999) tablet 1 (one) time each day at the same time. Active Multiple Vitamins-Minerals (Multivitamin Adults 50+) tablet Orally Active busPIRone (Buspar) 5 MG tabletIndications :Anxiety TAKE 1 TABLET BY MOUTH TWICE A DAY 180 tablet 1 4 Active diclofenac (Voltaren) 75 MG EC tabletIndications :Chronic bilateral low back pain without sciatica,Right hip pain,Left hip pain TAKE 1 TABLET BY MOUTH IN THE MORNING AND 1 TABLET BEFORE BEDTIME. DO NOT CRUSH, CHEW, OR SPLIT.. 60 tablet 3 4 Active zolpidem (Ambien) 5 MG tabletIndications :Other insomnia Take 1 tablet (5 mg) by mouth as needed at bedtime for sleep 30 tablet 2 4 Active escitalopram (Lexapro) 20 MG tabletIndications :Other depression TAKE 1 TABLET BY MOUTH EVERY DAY 90 tablet 1 5 Active Prednisolon-Moxif lox-Bromfenac 1-0.5-0.075 % solutionIndicatio ns:Age-related nuclear cataract of both eyes Administer 1 drop into affected eye(s) in the morning and 1 drop at noon and 1 drop in the evening and 1 drop before bedtime. 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 04/25/2023 Osteoporosis 04/25/2023 Psychophysiological insomnia 04/25/2023 Situational anxiety 04/25/2023 Status post hysterectomy 04/25/2023 Stress 04/25/2023 Resolved Problems Problem Noted Date Diagnosed Date Resolved Date Age-related nuclear cataract of left eye 02/10/2025 02/16/2025 Age-related nuclear cataract of both eyes 01/12/2025 02/10/2025 Encounters Date Type Department Care Team Description 04/20/2025 Travel 04/10/2025 Clinisync Result Encounter [facility] External Department Unsolicited Provider, Generic External Data 03/16/2025 Travel 02/25/2025 Results Follow-Up [facility] [address] [place] [phone] Lisa Lawrence, CHARO MA MAMM SCREEN W/CAD IF PERF AND 3D JACOBO 02/23/2025 3:00 PM EDT Office Visit [facility] [address] [place] [address] Emeterio Guerrero, DO Pseudophakia (Primary Dx) 02/23/2025 [facility] [address] [place] [address] Emeterio Guerrero, DO 02/23/2025 Travel 02/16/2025 3:00 PM EDT Office Visit [facility] [address] [place] [phone] Emeterio Guerrero, DO Pseudophakia (Primary Dx) 02/16/2025 Bamboo flowsheet [facility] [address] [place] [phone] Emeterio Guerrero, 02/16/2025 Travel 02/15/2025 Travel 02/10/2025 1:15 PM EDT Office Visit [facility] [address] [facility] [place] [phone] Emeterio Guerrero, Pseudophakia (Primary Dx); Age-related nuclear cataract of left eye 02/10/2025 Bamboo flowsheet [facility] [address] [place] [phone] Emeterio Guerrero, 02/10/2025 Travel 02/03/2025 Clinisync Result Encounter [facility] External Department Unsolicited Gricel Joaquin MD 01/30/2025 Refill [facility] [address] [place] [phone] Gricel Joaquin MD Age-related osteoporosis without current pathological fracture from Last 3 Months Immunizations Immunization Administration Dates Next Due Influenza, injectable, MDCK, preservative free, quadrivalent 04/19/2023,04/20/2021,05/11/2018 Influenza, injectable, quadrivalent 03/28/2022 Influenza, injectable, quadr ivalent, preservative free 04/29/2019 Influenza, seasonal, injecta ble, preservative free 05/13/2018 Zoster, Recombinant 07/22/2021,05/19/2021 Family History Medical History Relation Name Comments Cancer Father Alfa calvillo Cancer Maternal Grandmother Yuni navarro Cancer Mother Elma calvillo Cataracts Mother's Sister Elina dill Cancer Sister Denita muscmaicol Drug abuse Son Louie and dajuan Relation Name Status Comments Father Alfa calvillo Alive Maternal Grandmother Yuni navarro Alive Mother Elma calvillo Alive Mother's Sister Elina dill Alive Sister Denita musco Alive Son Zehra Alive Social History Tobacco Use Types Packs/Day Years Used Date Smoking Tobacco: Every Day Cigarettes 1 45.7 Started: 08/20/1979 Passive Smoke Exposure: Current Smokeless Tobacco: Current Tobacco Cessation:Ready to Q uit: Not Asked; Counseling Given: Not Answered Alcohol Use Standard Drinks/Week Comments Yes 0 (1 standard drink = 0.6 oz pur e alcohol) PHQ-2 Answer Date Recorded Patient Health Questionnaire-2 Score 0 04/25/2023 Housing Stability Vital Sign Answer Jey e [...] place to sleep or slept in a group home (including now)? No 08/12/2023 Humiliation, Afraid, Rape, and Kick questionnair e Answer Date Recorded Within the last year, have y ou been afraid of your partner or ex-partner? No 04/20/2025 Within the last year, have y ou been humiliated or emotionally abused in other ways by your partner or ex-partner? No Within the last year, have y ou been kicked, hit, slapped, or otherwise physically hurt by your partner or ex-partner? No 04/20/2025 Within the last year, have y ou been raped or forced to have any kind of sexual activity by your partner or ex-partner? No 04/20/2025 Social Connection and Isolation Panel Answer Date Recorded In a typical week, how many times do you talk on the phone with family, friends, or neighbors? More than three times a week 04/20/2025 How often do you get togethe r with friends or relatives? More than three times a week 04/20/2025 How often do you attend chur ch or restoration services? 1 to 4 times per year 04/20/2025 Do you belong to any clubs o r organizations such as oriental orthodox groups, unions, fraternal or athletic groups, or school groups? Patient declined 04/20/2025 How often do you attend meet ings of the clubs or organizations you belong to? More than 4 times per year 04/20/2025 Are you , , di vorced, , never , or living with a partner? 04/20/2025 AUDIT-C Answer Date Recorded Q1: How often do you have a drink containing alc ohol? Monthly or less 04/20/2025 Q2: How many drinks containi ng alcohol do you have on a typical day when you are drinking? 1 or 2 04/20/2025 Q3: How often do you have si x or more drinks on one occasion? Never 04/20/2025 Overall Financial Resource Strain (CARDIA) Answe r Date Recorded How hard is it for you to pa y for the very basics like food, housing, medical care, and heating? Somewhat hard 04/20/2025 [facility] Occupat ional Health - Occupational Stress Questionnaire Answer Date Recorded Do you feel stress - tense, restless, nervous, or anxious, or unable to sleep at night because your mind is troubled all the time - these days? To some extent 04/20/2025 Exercise Vital Sign Answer Date Recorde d On average, how many days pe r week do you engage in moderate to strenuous exercise (like a brisk walk)? 7 days 04/20/2025 On average, how many minutes do you engage in exercise at this level? 30 min 04/20/2025 Hunger Vital Sign Answer Date Recorded Within the past 12 months, y ou worried that your food would run out before you got the money to buy more. Never true 04/20/20 25 Within the past 12 months, t he food you bought just didn't last and you didn't have money to get more. Never true 04/20/2025 PRAPARE - Transportation Answer Date Re corded In the past 12 months, has l ack of transportation kept you from medical appointments or from getting medications? No 04/07 In the past 12 months, has l ack of transportation kept you from meetings, work, or from getting things needed for daily living? No 04/20/2025 Housing Stability Vital Sign Answer Jey e Recorded In the last 12 months, was t here a time when you were not able to pay the mortgage or rent on time? No 04/20/2025 Number of Times Moved in the Last Year Not on fi le 04/20/2025 At any time in the past 12 m [facility], were you homeless or living in a group home (including now)? No 04/20/2025 B1300 Health Literacy Answer Date Recor ded How often do you need to hav e someone help you when you read instructions, pamphlets, or other written material from your doctor or pharmacy? Never 04/20/2025 Comments Unknown Sex and Gender Information Value Date Recorded Sex Assigned at Not on file Legal Sex Female 6:46 PM EDT Gender Identity Not on file Sexual Orientation Not on file Last Filed Vital Signs Vital Sign Reading Time Taken Comments Blood Pressure 118/72 01/16/2024 4:32 PM EDT Pulse 85 01/16/2024 4:32 PM EDT Temperature 36.6 C (97.8 F) 01/16/2024 4:32 PM EDT Respiratory Rate - - Oxygen Saturation 93% 01/16/2024 4:32 PM EDT Inhaled Oxygen Concentration - - Weight 64.2 kg (141 lb 9.6 oz) 01/16/2024 4:32 P M EDT Height 170.2 cm (5' 7 ) 01/16/2024 4:32 PM EDT Body Mass Index 22.18 01/16/2024 4:32 PM EDT Plan of Treatment Upcoming Encounters Date Type Department Care Team (Late st Contact Info) Description 04/26/2025 3:45 PM EDT Office Visit [facility] [address] [place] [phone] Gricel Joaquin MD [address] [place] [address] Health Maintenance Due Date Last Done Comments CT Colonography 1960 Colonoscopy 1960 FIT 1960 FOBT 1960 Lung Cancer Screening Shared Decision Making 1960 Sigmoidoscopy 1960 Influenza Vaccine (#1) 2025 , 04/19/2023, 03/28/2022, Additional history exists Mammogram 02/03/2026 02/03/2025, 04/17/2022 Colorectal Cancer Screening 05/04/2026 FIT-DNA 05/04/2026 05/04/2023, 03/17/2022 Procedures Procedure Name Priority Date/Time Associated Diagnosis Comments XR FOOT LT MIN 3V 04/10/2025 2:4 7 PM EDT MA MAMM SCREEN W/CAD IF PERF AND 3D JACOBO 02/03/2025 3:16 PM EDT LAB COLOGUARD COLON CANCER SCREEN Routine 05/04/2023 1:45 AM EDT Screening for colon cancer from Last 3 Months or Most Recently Relevant to Health Maintenance Results * XR FOOT LT MIN 3V (04/10/2025 2:47 PM EDT) Anatomical Region Laterality Modality Other 04/10/2025 2:47 PM EDT Narrative 04/10/2025 2:49 [place] [address] XRay Report Signed Patient: ARA BLACKBURN MR#: [id number] : 1960 Acct:[id number] Age/Sex: 64 / F ADM Date: 04/10/25 Loc: RAD Attending Dr: Gricel Mcclain D.P.M. Ordering Physician: Gricel Mcclain D.P.M. Date of Service: 04/10/25 Procedure(s): XR foot LT min 3V Accession Number(s): [id number] cc: GRICEL JOAQUIN ; Gricel Mcclain D.P.M. The [place] [id number] Patient Name: ARA BLACKBURN MRN: [id number] date: 1960 Sex: F Assigned Patient Location: RAD Current Patient Location: RAD Accession/Order Number: [id number] Exam Date: 04/10/2025 14:30 Report Date: 04/10/2025 14:47 At the request of: GRICEL MCCLAIN DPSharon Procedure: XR foot LT min 3V LEFT FOOT - 3 views CLINICAL HISTORY: Left Foot Pain Left foot pain for one month. Fell one month ago. COMPARISON: None FINDINGS: No focal soft tissue abnormality. Bones are grossly demineralized. No definitive fracture is seen. Plantar spurring. XR/XR foot LT min 3V IMPRESSION: NO ACUTE BONY PROCESS. Impression dictated by: Vamsi Rodarte Jr., D.O. 04/10/2025 2:47 PM Dictation Location: RADIO-PC-18 Electronically authenticated by: [id number] Y Date: 04/10/2025 14:47 Dictated By: Vamsi Rodarte M.D. Signed By: 04/10/25 1449 DD/ 1447 TD/TT: Commodity Merchant: Procedure Note Radiology, Radiologist, MD - 04/10/2025 [place] [address] XRay Report Signed Patient: ARA BLACKBURN DMR#: [id number] : 1960cct:[id number] Age/Sex: 64 / FADM Date: 04/10/25 Loc: RAD Attending Dr: Gricel Mcclain D.P.M. Ordering Physician: Gricel Mcclain D.P.M. Date of Service: 04/10/25 Procedure(s): XR foot LT min 3V Accession Number(s): [id number] cc: GRICEL JOAQUIN ; Gricel Mcclain D.P.M. The [address] [address] Patient Name: ARA BLACKBURN MRN: [id number] date: 1960 Sex: F Assigned Patient Location: [facility] Current Patient Location: [facility] Accession/Order Number: [id number] Exam Date: 04/10/2025 14:30 Report Date: 04/10/2025 14:47 At the request of: GRICEL MCCLAIN DPM Procedure: XR foot LT min 3V LEFT FOOT - 3 views CLINICAL HISTORY: Left Foot Pain Left foot pain for one month. Fell one month ago. COMPARISON: None FINDINGS: No focal soft tissue abnormality. Bones are grossly demineralized. No definitive fracture is seen. Plantar spurring. XR/XR foot LT min 3V IMPRESSION: NO ACUTE BONY PROCESS. Impression dictated by: Vamsi Rodarte Jr., D.O. 04/10/2025 2:47 PM Dictation Location: RADIO-PC-18 Electronically authenticated by: [id number] Y Date: 4:47 Dictated By: Vamsi Rodarte M.D. Signed By:04/10/25 1449 DD/ 1447 TD/TT: Commodity Merchant: us Generic External Data Provider [facility] Final Result * MA MAMM SCREEN W/CAD IF PERF AND 3D JACOBO (02/03/2025 3:16 PM EDT) Anatomical Region Laterality Modality Other 02/03/2025 3:16 PM EDT Narrative 02/05/2025 9:40 AM EDT Exam Date/Time: 02/03/2025 15:16 EDT Reason for [...] VERY IMPORTANT TO YOUR HEALTH. THE CURRENT [place] OF [employer] AND [employer] COMPREH[employer]IVE CANC[employer] NETWORK GUIDELINES RECOMMENDS ANNUAL MAMMOGRAPHY BEGINNING AT AGE 40. THIS FACILITY UTILIZES A REMINDER SYSTEM TO ENSURE ALL PATIENTS RECEIVE REMINDER NOTIFICATIONS AT THE APPROPRIATE TIME BASED ON THE RECOMMENDATIONS OF THIS EXAM. Report Ordering Provider: Gricel Joaquin FINAL REPORT Dictated: 02/05/2025 9:37 am Sebastian Davalos MD Signed (Electronic Signature): 02/05/2025 9:37 am Signed by: Sebastian Davalos MD Transcribed by: GEE Technologist: RONAL Assessment: BI-RADS Category 2-Benign finding Recommendation: Normal interval follow-up Procedure Note Radiology, Radiologist, - 02/05/2025 Exam Date/Time: 02/03/2025 15:16 EDT [...] TECHNIQUE: Routine full-field digital mammograms and 3D breasttomosynthesis were obtained of both breasts. FINDINGS: No significant changes are identified from the prior studies, givendifferences in technique and positioning. Stable asymmetries and benign microcalcifications. Dense Breast: Yes. CAD analysis was performed and used in the interpretation. Board Certified Radiologists. Accredited by the ACR and FDA. MAMMOGRAPHY IS VERY IMPORTANT TO YOUR HEALTH. THE CURRENT [employer] OF RADIOLOGY AND NATIONAL [facility] NETWORK GUIDELINES RECOMMENDS ANNUAL MAMMOGRAPHY BEGINNING AT AGE 40. THIS FACILITY UTILIZES A REMINDER SYSTEM TO ENSURE ALL PATIENTS RECEIVEREMINDER NOTIFICATIONS AT THE APPROPRIATE TIME BASED ON THE RECOMMENDATIONS OF THISEXAM. Report Ordering Provider: Gricel Joaquin FINAL REPORT Dictated: 02/05/2025 9:37 am Sebastian Davalos MD Signed (Electronic Signature): 02/05/2025 9:37 am Signed by: Sebastian Davalos MD Transcribed by: GEE Technologist: RONAL Assessment: BI-RADS Category 2-Benign finding Recommendation: Normal interval follow-up us Gricel Joaquin MD [facility] Final Result * Cologuard?? colon cancer screening (05/04/2023 1:45 AM EDT) NONINV COLON CA DNA+OCC BLD SCRN STL-IMP Negative Negative 05/09/2023 9:51 AM EDT [facility] (CLIA #:[id number]) Comment: NEGATIVE TEST RESULT. A negative Cologuard result indicates a low likelihood that a colorectal cancer (CRC) or advanced adenoma (adenomatous polyps with more advanced pre-malignant features) is present. The chance that a person with a negative Cologuard test has a colorectal cancer is less than 1 in 1500 (negative predictive value >99.9%) or has an advanced adenoma is less than 5.3% (negative predictive value 94.7%). These data are based on a prospective cross-sectional study of 10,000 individuals at average risk for colorectal cancer who were screened with both Cologuard and colonoscopy. (Therese Tolentino al, N Engl J Med 2014;370(14):2589-5062) The normal value (reference range) for this assay is negative. COLOGUARD RE-SCREENING RECOMMENDATION: Periodic colorectal cancer screening is an important part of preventive healthcare for asymptomatic individuals at average risk for colorectal cancer. Following a negative Cologuard result, the [place] [employer] and U.S. Multi-Society Task Force screening guidelines recommend a Cologuard re-screening interval of 3 years. References: [place] [employer] Guideline for Colorectal Cancer Screening: https://www.cancer.org/cancer/lvadn-gildzf-mlvqzm/wwahnpstu-qcvavzdjr-okqwrct/ac s-rec ommendations.html.; Serg DK, Karan CR, Denae GarciaK, Colorectal Cancer Screening: Recommendations for Physicians and Patients from the U.S. Multi-Society Task Force on Colorectal Cancer Screening , Am J Gastroenterology 2017; 112:7142-0787. TEST DESCRIPTION: Composite algorithmic analysis of stool DNA-biomarkers with hemoglobin immunoassay. Quantitative values of individual biomarkers are not reportable and are not associated with individual biomarker result reference ranges. Cologuard is intended for colorectal cancer screening of adults of either sex, 45 years or older, who are at average-risk for colorectal cancer (CRC). Cologuard has been approved for use by the U.S. FDA. The performance of Cologuard was established in a cross sectional study of average-risk adults aged 50-84. Cologuard performance in patients ages 45 to 49 years was estimated by sub-group analysis of near-age groups. Colonoscopies performed for a positive result may find as the most clinically significant lesion: colorectal cancer [4.0%], advanced adenoma (including sessile serrated polyps greater than or equal to 1cm diameter) [20%] or non- advanced adenoma [31%]; or no colorectal neoplasia [45%]. These estimates are derived from a prospective cross-sectional screening study of 10,000 individuals at average risk for colorectal cancer who were screened with both Cologuard and colonoscopy. (Therese Tolentino al, N Engl J Med 2014;370(14):8161-9044.) Cologuard may produce a false negative or false positive result (no colorectal cancer or precancerous polyp present at colonoscopy follow up). A negative Cologuard test result does not guarantee the absence of CRC or advanced adenoma (pre-cancer). The current Cologuard screening interval is every 3 years. ([place] [employer] and U.S. Multi-Society Task Force). Cologuard performance data in a 10,000 patient pivotal study using colonoscopy as the reference method can be accessed at the following location: www.ShoutWire.Grouply/results. Additional description of the Cologuard test process, warnings and precautions can be found at www.TransEnterixrd.Grouply. Stool specimen (specimen) 05/04/2023 1:45 AM EDT 05/06/2023 1:10 AM EDT Gricel Joaquin MD LAB MOLECULAR DIAGNOSTICS ABDULLAHI PULLIAM Final Result [facility] (CLIA #:[id number]) [address] [place] [address], from Last 3 Months or Most Recently Relevant to Health Maintenance Insurance [facility] Care Teams Gallery Intern Relationship Specialty Start Date End Date Gricel Joaquin MD [address] [place] [address] PCP - General Family Medicine 11/13/22
--- OUTSIDE RECORDS SUMMARY | 2025-04-20 14:28 | XMS_ITS | Encounter Summary ---
Author Organization [facility] Address [address] [place] [address] Care Team Providers Care Bottom Pounder Cement Shoes Name Role Phone Emery Park MD Unavailable [phone] Emery Park MD Primary Care Provider [phone] Encounter Details Date Type Department Care Team (Late st Contact Info) Description 04/21/2024 Clinisync Result Encounter [facility] External Department Unsolicited Emery Park MD [address] [place] [address] Social History Tobacco Use Types Packs/Day Years Used Date Smoking Tobacco: Every Day Cigarettes 1 45.7 Started: 08/20/1979 Passive Smoke Exposure: Current Smokeless Tobacco: Never [...] often do you attend chur ch or yazidi services? Never 08/12/2023 Do you belong to any clubs o r organizations such as yazidi groups, unions, fraternal or athletic groups, or [...] Recorded Patient Health Questionnaire-2 Score 0 04/25/2023 [facility] - [...] place to sleep or slept in a alf (including now)? No 08/12/2023 Comments Unknown Sex [...] [facility] [address] [place] [address] Emery Park MD [address] [place] [address] documented as of this encounter Procedures Procedure Name Priority Date/Time Associated Diagnosis Comments CT CHEST, LOW DOSE SCREENING 04/21/2024 3:34 PM EDT documented in this encounter Results * CT CHEST, LOW DOSE SCREENING (04/21/2024 3:34 PM EDT) Anatomical Region Laterality Modality Other 04/21/2024 3:34 PM EDT Addenda Addendum by Radiology, RadiologistMD on 04/23/2024 5:48 PM EDT Exam Date/Time: 04/21/2024 15:51 EDT Reason for [...] 08/05/2024 17:12 EST by Shady Zamarripa MD Narrative 04/23/2024 5:48 PM EDT Exam Date/Time: 04/21/2024 15:51 EDT Reason for Exam: F17.210 Report IMPRESSION: Lung RADS category 2: Benign [...] hilar, mediastinal, or axillary lymph node enlargement. Thoracic aorta: Normal in course and caliber. Cardiac Size: Normal. Pericardial effusion: None. Upper abdomen:Limited imaging upper abdomen shows no gross anomaly. Musculoskeletal:No osteoblastic, and no osteolytic lesions. Anterior wedging T12 vertebral body, stable. Report All CT scans at this facility use dose modulation, iterative reconstruction, and/or weight based dosing when appropriate to reduce radiation dose to as low as reasonably achievable. Ordering Provider: Emery Park FINAL REPORT Dictated: 04/23/2024 5:44 pm Shady Zamarripa MD Signed (Electronic Signature): 04/23/2024 5:44 pm Signed by: Shady Zamarripa MD Transcribed by: GEE Technologist: SHAY Procedure Note Radiology, Radiologist, - 08/05/2024 Exam Date/Time: 04/21/2024 15:51 EDT Reason for Exam: F17.210 Report IMPRESSION: Lung RADS category 2: Benign appearance and behavior. Follow-up screeningCT chest in [address] IMAGING OF THE CHEST WITHOUT INTRAVENOUS CONTRAST MEDIUM. HISTORY: Tobacco use. TECHNICAL FACTORS: Low dose CT imaging of the chest was obtained and formatted as 2.5 mmcontiguous axial images from the thoracic inlet through the adrenal glands. [place] coronal reconstructions obtained during postprocessing. Intravenous contrast medium: None. Comparison: 10/02/2022 FINDINGS: Right lung: Stable right apical fibrotic change. Pleural-basednoncalcified 2.2 mm nodule lateral right upper lobe (series 3, image 51), stable. Similar 1.6mm finding, right lower lobe (series 3, image 71), not present on prior study. No,consolidation, pleural effusion, pneumothorax. Left lung: Stable left apical fibrotic change. No nodules and no masses.No consolidation, pleural effusion, pneumothorax. Lymph nodes: No hilar, mediastinal, or axillary lymph node enlargement. Thoracic aorta: Normal in course and caliber. Cardiac Size: Normal. Pericardial effusion: None. Upper abdomen:Limited imaging upper abdomen shows no gross anomaly. Musculoskeletal:No osteoblastic, and no osteolytic lesions. Anteriorwedging T12 vertebral body, stable. Report All CT scans at this facility use dose modulation, iterativereconstruction, and/or weight based dosing when appropriate to reduce radiation dose to as low asreasonably achievable. Ordering Provider: Emery Park FINAL REPORT Dictated: 04/23/2024 5:44 pm Shady Zamarripa MD Signed (Electronic Signature): 04/23/2024 5:44 pm Signed by: Shady Zamarripa MD Transcribed by: GEE Technologist: SHAY Emery Park MD [facility] Edited Resul t - Final documented in this encounter Visit Diagnoses Not on filedocumented in this encounter Care Teams Bottom Pounder Cement Shoes Relationship Specialty Start Date End Date Emery Park MD [address] [place] [address] PCP - [place] [employer] 11/05/20 Emery Park MD [address] [place] [address] PCP - General Family Medicine 11/13/22 documented as of this encounter
--- OUTSIDE RECORDS SUMMARY | 2025-04-20 14:28 | XMS_ITS | Encounter Summary ---
Author Organization [facility] Address [address] [place] [address] Care Team Providers Care Library Information Technician Name Role Phone Emery Park MD Primary Care Provider [phone] Encounter Details Date Type Department Care Team (Latest Contact Info) Description 04/20/2025 Travel Social History Tobacco Use Types Packs/Day Years Used Date Smoking Tobacco: Every Day Cigarettes 1 45.7 Started: 08/20/1979 Passive Smoke Exposure: Current Smokeless Tobacco: Current Alcohol Use Standard Drinks/Week Comments Yes 0 [...] place to sleep or slept in a usp (including now)? No 08/12/2023 Humiliation, Afraid, Rape, [...] week 04/20/2025 How often do you attend [facility] or adventism services? 1 to 4 times per year 04/20/2025 Do you belong to any clubs o r organizations such as evangelical groups, unions, fraternal or athletic groups, or [...] medical care, and heating? Somewhat hard 04/20/2025 [facility] [...] any time in the past 12 m [facility], were you homeless or living in a usp (including now)? No 04/20/2025 B1300 Health Literacy [...] AUDIT-C Score Answer Date of Assessment Author 1 04/20/2025 8:40 AM EDT Mychart, Generic * Q1: How often do you have a drink containing alcohol? Answer Date of Assessment Author Monthly or less 04/20/2025 8:40 AM EDT Mychart, Generic * Q2: How many drinks containing alcohol do you have on a typical day when you are drinking? Answer Date of Assessment Author 1 or 2 04/20/2025 8:40 AM EDT Mychart, Generic * Q3: How often do you have six or more drinks on one occasion? Answer Date of Assessment Author Never 04/20/2025 8:40 AM EDT Mychart, Generic documented as of this encounter Plan of Treatment Upcoming Encounters Date Type Department Care Team (Late st Contact Info) Description 04/26/2025 3:45 PM EDT Office Visit [facility] [address] [place] [address] Emery aPrk MD [address] [place] [address] documented as of this encounter Visit Diagnoses Not on filedocumented in this encounter Care Teams Library Information Technician Relationship Specialty Start Date End Date Emery Park MD [address] [place] [address] PCP - General Family Medicine 11/13/22 documented as of this encounter
--- OUTSIDE RECORDS SUMMARY | 2025-04-20 14:28 | XMS_ITS | Encounter Summary ---
Author Organization [facility] Address [address] [place] [address] Care Team Providers Care Instructional Writer Name Role Phone Emery Park MD Unavailable [phone] Emery Park MD Primary Care Provider Encounter Details Date Type Department Care Team (Late st Contact Info) Description 08/12/2023 Clinisync Result Encounter [facility] External Department Unsolicited Emery Park MD [address] [place] [address] Social History Tobacco Use Types [...] often do you attend chur ch or hoahaoism services? Never 08/12/2023 Do you belong to any clubs o r organizations such as mu-ism groups, unions, fraternal or athletic groups, or [...] Recorded Patient Health Questionnaire-2 Score 0 04/25/2023 [facility] - Occupational Stress [...] place to sleep or slept in a senior living (including now)? No 08/12/2023 Comments Unknown Sex [...] [facility] [address] [place] [address] Emery Park MD [address] [place] [address] documented as of this encounter Procedures Procedure Name Priority Date/Time Associated Diagnosis Comments XR SPINE LUMBOSACRAL MINIMUM 4 VIEWS 08/12/2023 4:02 PM EST documented in this encounter Results * XR SPINE LUMBOSACRAL MINIMUM 4 VIEWS (08/12/2023 4:02 PM EST) Anatomical Region Laterality Modality Other 08/12/2023 4:02 PM EST Narrative 08/13/2023 8:18 AM EST Exam Date/Time: 08/12/2023 16:33 EST Reason for Exam: M54.50 Report IMPRESSION: There is moderate spondylosis of the lumbar spine. CLINICAL HISTORY: M5.50 COMPARISON: Lumbar spine x-rays from 07/29/2018 FINDINGS: The visualized bones are demineralized. There is no acute fracture or subluxation. There is no loss of vertebral body height. There is partial sacralization of L5. There is preservation of the lordotic curvature of the lumbar spine. There is atherosclerosis with a Higgins angle measurement of 17 degrees between T12 and L4 There is severe joint space narrowing and vacuum joint phenomenon at L2-L3. The remaining levels demonstrate mild intervertebral disc space narrowing. The SI joints are symmetric. The soft tissues are within normal limits. Ordering Provider: Emery Park FINAL REPORT Dictated: 08/13/2023 8:15 am Dante Griffin MD, V. Signed (Electronic Signature): 08/13/2023 8:15 am Signed by: Dante Griffin MD, V. Transcribed by: GEE Technologist: SHAY Technical Comments Radiation Dose: Ka,r in mGy = na DAP = na Procedure Note Radiology, Radiologist, - 08/13/2023 Exam Date/Time: 08/12/2023 16:33 EST Reason for Exam: M54.50 Report IMPRESSION: There is moderate spondylosis of the lumbar spine. CLINICAL HISTORY: M5.50 COMPARISON: Lumbar spine x-rays from 07/29/2018 FINDINGS: The visualized bones are demineralized. There is no acute fracture or subluxation. There is no loss of vertebralbody height. There is partial sacralization of L5. There is preservation of the lordotic curvature of the lumbar spine. Thereis atherosclerosis with a Higgins angle measurement of 17 degrees between T12and L4 There is severe joint space narrowing and vacuum joint phenomenon atL2-L3. The remaining levels demonstrate mild intervertebral disc space narrowing. The SI joints are symmetric. The soft tissues are within normal limits. Ordering Provider: Emery Park FINAL REPORT Dictated: 08/13/2023 8:15 am Dante Griffin MD, V. Signed (Electronic Signature): 08/13/2023 8:15 am Signed by: Dante Griffin MD, V. Transcribed by: GEE Technologist: SHAY Technical Comments Radiation Dose: Ka,r in mGy = na DAP = na Emery Park MD [facility] Final Result documented in this encounter Visit Diagnoses Not on filedocumented in this encounter Care Teams Instructional Writer Relationship Specialty Start Date End Date Emery Park MD [address] [place] [address] PCP - [place] [employer] 11/05/20 Emery Park MD [address] [place] [address] PCP - General Family Medicine 11/13/22 documented as of this encounter
--- OUTSIDE RECORDS SUMMARY | 2025-04-20 14:28 | XMS_ITS | Encounter Summary ---
Author Organization [facility] Address [address] [place] [address] Care Team Providers Care Line Director Name Role Phone Gricel Joaquin MD Primary Care Provider [phone] Encounter Details Date Type Department Care Team ([facility] st Contact Info) Description 04/10/2025 Clinisync Result Encounter [facility] External Department Unsolicited Provider, Generic External Data Social History Tobacco Use Types Packs/Day Years [...] week 08/12/2023 How often do you attend [facility] or judaism services? Never 08/12/2023 Do you belong to any clubs o r organizations such as quaker groups, unions, fraternal or athletic groups, or [...] Recorded Patient Health Questionnaire-2 Score 0 04/25/2023 [facility] - Occupational Stress Questionnaire Answer Date Recorded [...] place to sleep or slept in a fpc (including now)? No 08/12/2023 Comments Unknown Sex [...] [facility] [address] [place] [address] Gricel Joaquin MD [address] [place] [address] documented as of this encounter Procedures Procedure Name Priority Date/Time Associated Diagnosis Comments XR FOOT LT MIN 3V 04/10/2025 2:4 7 PM EDT documented in this encounter Results * XR FOOT LT MIN 3V (04/10/2025 2:47 PM EDT) Anatomical Region Laterality Modality Other 04/10/2025 2:47 PM EDT Narrative 04/10/2025 2:49 PM EDT The [address] [address] XRay Report Signed Patient: ML BLACKBURN MR#: [id number] : 1960 Acct:[id number] Age/Sex: 64 / F ADM Date: 04/10/25 Loc: RAD Attending Dr: Gricel Mcclain D.P.M. Ordering Physician: Gricel Mcclain D.P.M. Date of Service: 04/10/25 Procedure(s): XR foot LT min 3V Accession Number(s): [id number] cc: GRICEL JOAQUIN ; Gricel Mcclain D.P.M. The [place] [address] Patient Name: ML BLACKBURN MRN: [id number] date: 1960 Sex: F Assigned Patient Location: [facility] Current Patient Location: RAD Accession/Order Number: [id number] Exam Date: 04/10/2025 14:30 Report Date: 04/10/2025 [...] BONY PROCESS. Impression dictated by: Vamsi Rodarte Jr. DNilam 04/10/2025 2:47 PM Dictation Location: [place] [address] Electronically authenticated by: [id number] Y Date: 04/10/2025 14:47 Dictated By: Vamsi Rodarte M.D. Signed By: 04/10/25 1449 DD/ 1447 TD/TT: Workday Director: Procedure Note Radiology, Radiologist, MD - 04/10/2025 [place] [address] XRay Report Signed Patient: ML BLACKBURN DMR#: [id number] : 1960cct:[id number] Age/Sex: 64 / FADM Date: 04/10/25 Loc: RAD Attending Dr: Gricel Mcclain D.P.M. Ordering Physician: Gricel Mcclain D.P.M. Date of Service: 04/10/25 Procedure(s): XR foot LT min 3V Accession Number(s): [id number] cc: GRICEL JOAQUIN ; Gricel Mcclain D.P.M. The [place] [id number] Patient Name: ML BLACKBURN MRN: [id number] date: 1960 Sex: F Assigned Patient Location: [facility] Current Patient Location: [facility] Accession/Order Number: [id number] Exam Date: 04/10/2025 14:30 Report Date: 04/10/2025 [...] Jr., D.O. 04/10/2025 2:47 PM Dictation Location: [place] [address] Electronically authenticated by: [id number] Y Date: 4:47 Dictated By: Vamsi Rodarte M.D. Signed By:04/10/25 1449 DD/ 1447 TD/TT: Workday Director: Generic External Data Provider [facility] Final Result documented in this encounter Visit Diagnoses Not on filedocumented in this encounter Care Teams Line Director Relationship Specialty Start Date End Date Gricel Joaquin MD [address] [place] [address] PCP - General Family Medicine 11/13/22 documented as of this encounter
--- OUTSIDE RECORDS SUMMARY | 2025-04-20 14:29 | XMS_ITS | Patient Health Record ---
Author Organization [facility] [facility] Address [address] [address], [place] [address] Care Team Providers Care Catering And Events Manager Name Role Phone Emery Mcclain Unavailable [phone] Allergies Allergen (clinical drug ingredient) Drug/Non Drug Allergy documented on EMR Reaction Allergy Type Onset Date Status Substance with sulfonamide structure and antibacterial mechanism of action (substance) Sulfa Antibiotics Unknown Drug Allergy Active Reason For Referral No Information Medications Medication SIG (Take, Route, Frequency, Duration) Notes Start Date End Date Status Alendronate Sodium 70 MG Tablet Oral; Duration: 84 Days Acti ve Multivitamin Active Vitamin D Active Social History Section Notes: Patient is a current smoker. Social alcohol use. Encounters Encounter Location Date Provider Diagnosis [facility] [address] [address], [place] [address] 04/12/2025 Emery Mcclain Stress fracture of metatarsal [...] ordered for further evaluation Plan Of Treatment No Information Insurance Providers Payer Name Payer Address Payer Phone Subscriber Number Group Number Insured Name Patient Relationship to Insured Coverage Start Date Coverage End Date [facility] [address] [place] [address] [phone] [id number] Ml Lizama Self - patient is the insured Medical (General) History Medical History History ICD Code Arthritis Surgical History Surgery Date(Month/Year) Hysterectomy Kidney Stents
--- OUTSIDE RECORDS SUMMARY | 2025-04-20 14:29 | XMS_ITS | Clinical Summary ---
Author Organization [employer] [facility] tem Address [id number] [address] [place] [address] Care Team Providers Care Playground Director Name Role Phone Unavailable Primary Care Provider Unavailabl e Allergies Active Allergy Reactions Criticality Noted Date Comments Cephalexin 04/25/2023 Other Reaction(s): Tingling Tongue Ciprofloxacin 04/25/2023 Other Reaction(s): hives Sulfanilamide Anaphylaxis High 04/25/2023 Medications prednisoln pw-mdbssono-tjt mfen 1-0.5-0.075 % drops Instill 1 drop to eye in the morning and 1 drop at noon and 1 drop in the evening and 1 drop before bedtime. 01/12/2025 Active escitalopram (LEXAPRO) 20 mg tablet Take 1 tablet (20 mg total) by mouth. 11/17/2024 Active cholecalciferol , vitamin D3, 2,000 units tablet Active alendronate (FOSAMAX) 70 mg tablet 1 tablet (70 mg total) once a week. Active alendronate (FOSAMAX) 70 mg tablet Take 1 tablet (70 mg total) by mouth Once a week. 02/03/2025 Active Active Problems No known active problems Encounters Date Type Department Care Team Description 03/20/2025 4:30 PM EDT Office Visit [facility] [place] [address] [place] [address] Ainsley Gonzalez, PASSENGER [employer] Viral illness (Primary Dx); Tobacco use from Last 3 Months Social History Tobacco Use Types Packs/Day Years Used Date Smoking Tobacco: Every Day Cigarettes Tobacco Cessation:Ready to Q uit: Not Asked; Counseling Given: Not Answered Childcare Answer Date Recorded Childcare Unknown 12/17/2018 Employment Answer Date Recorded Employment Unknown 12/17/2018 Hunger Screening Answer Date Recorded Within the past 12 months we worried whether our food would run out before we got money to buy more. Never True 03/20/2025 Within the past 12 months th e food we bought just didn't last and we didn't have money to get more. Never True 03/20/2025 Comments No Sex and Gender Information Value Date Recorded Sex Assigned at Not on file Legal Sex Female 8:16 PM EDT Gender Identity Not on file Sexual Orientation Not on file Last Filed Vital Signs Vital Sign Reading Time Taken Comments Blood Pressure 114/58 03/20/2025 4:57 PM EDT Pulse 86 03/20/2025 4:57 PM EDT Temperature 36.3 C (97.3 F) 03/20/2025 4:57 PM EDT Respiratory Rate 18 03/20/2025 4:57 PM EDT Oxygen Saturation 96% 03/20/2025 4:57 PM EDT Inhaled Oxygen Concentration - - Weight 66.2 kg (146 lb) 03/20/2025 4:57 PM EDT Height - - Body Mass Index - - Plan of Treatment Health Maintenance Due Date Last Done Comments Tobacco Counseling 1960 Depression Screening 1972 Adult BMI Screening 1978 COVID-19 Vaccine (2024-2 6 season) 2025 04/26/2023, 12/01/2021, 05/13/2021, Additional history exists Influenza Vaccine 03/08/2025 04/11/2024, , 03/28/2022, Additional history exists Tobacco Screening 03/20/2026 03/20/2025 DTaP,Tdap and Td Vaccines (2 - Td or Tdap) 02/28/2034 02/29/2024 Zoster (Shingles) Vaccine Completed 07/22/2021, 06/2021 Medical Devices Not on file Insurance
--- NOTE | 2025-04-20 14:31 | MR_ITS ---
[address] [address] Patient Name: ARA BLACKBURN MRN: [facility]:[id number] date: 1960 Sex: F Assigned Patient Location: MRI Current Patient Location: MRI Accession/Order Number: [id number] Exam Date: 04/20/2025 14:47 Report Date: 04/20/2025 19:56 At the request of: GRICEL MATIAS DPSharon Procedure: MR foot LT wo con MR foot LT wo con 04/20/2025 3:25 PM SIGNS AND SYMPTOMS: ^metatarsal stress fracture, left foot pain across metatarsals PROTOCOL: Multiplanar multisequence MR images of the left foot without contrast COMPARISON: 04/10/2025 FINDINGS: Lisfranc ligament: Intact. Hallux: Osseous: Normal. Extensor tendon: Normal. Flexor tendon: Normal. First metatarsophalangeal joint: Intact. Hallux-sesamoid complex: Normal. Second ray: Osseous: Normal. Extensor tendon: Normal. Flexor tendon: Normal. Second metatarsophalangeal joint: Intact. Plantar plate: Normal. Third ray: Osseous: Normal. Extensor tendon: Normal. Flexor tendon: Normal. Third metatarsophalangeal joint: Intact. Plantar plate: Normal. Fourth ray: Osseous: Normal. Extensor tendon: Normal. Flexor tendon: Normal. Fourth metatarsophalangeal joint: Intact. Plantar plate: Normal. Fifth ray: Osseous: Normal. Extensor tendon: Normal. Flexor tendon: Normal. Fifth metatarsophalangeal joint: Intact. Plantar plate: Normal. Interspaces: Interdigital (Greene) neuroma: None. Intermetatarsal bursitis: None. Soft tissues: Normal. Muscles: Normal. Bones: Edema traverses the anterior talar process extending towards the subtalar joints. This is nonspecific but may represent a healing fracture or stress injury. Subtle edema is also noted in the navicular and the cuboid. Nerves: Normal. Blood vessels: Normal. MR/MR foot LT wo con IMPRESSION: Edema traverses the anterior talar process extending towards the subtalar joints. This is nonspecific but may represent a healing fracture or stress injury. Subtle edema is also noted in the navicular and the cuboid. Metatarsals are intact and normal in signal. The soft tissues of the foot are within normal limits. Impression dictated by: Chris Kilgore M.D. 04/20/2025 7:56 PM Dictation Location: [place] [address] Electronically authenticated by: [id number] Date: 04/20/2025 19:56
--- OUTSIDE RECORDS SUMMARY | 2025-04-20 14:31 | XMS_ITS | CCD ---
Author Organization [facility] Care Team Providers Care 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 Name Role Phone TYLOR, DR NICOLE Maradiaga Attending Unava ilable PENSIWILFRIDO, DR NICOLE Maradiaga Consulting Unava ilable HORACIOSIERO, DR NICOLE Maradiaga Admitting Unava ilable Brijesh Stevens Primary Care Physician [phone] Katie Valerio Unavailable Gricel Joaquin Primary Care Physician [phone] Olimpia Giron Unavailable Gricel Joaquin MD Primary Care Provider Gricel Joaquin MD Unavailable [phone] Gricel Joaquin Admitting Unavailable Gricel Joaquin Attending Unavailable Gricel Joaquin Referring Unavailable Gricel Joaquin Admitting Unavailable Gricel Joaquin Attending Unavailable Gricel Joaquin Referring Unavailable CHIDI GUERRERO Attending Unavailable RODRIGO LEPE Referring Unavailable CHIDI GUERRERO Attending Unavailable CHIDI GUERRERO Attending Unavailable HCIDI GUERRERO Attending Unavailable LISA MANUEL Attending Unavailable Unavailable Primary Care Provider UnavailAINSLEY Hernandes Attending Unavailable Allergies Allergy Classification Reported Allergen(s) Allergy Type Date of Onset Reaction(s) Facility Sulfamethizole (1 source) Sulfamethizole Drug Allergy 5 [facility] (1 source) Sulfonamide Drug allergy Unknown [facility] Other (1 source) Substance with sulfonamide structure and antibacterial mechanism of action (substance) Drug allergy Unknown [facility] Other (20 sources) Cephalexin; Translations: [CEPHALEXIN] Drug Allergy 3 [facility] (20 sources) Ciprofloxacin; Translations: [CIPROFLOXACIN] Drug Allergy 3 [facility] (20 sources) Sulfanilamide; Translations: [SULFANILAMIDE] Allergy to substance 3 Anaphylaxis [facility] (1 source) Sulfanilamide Drug Allergy 3 Anaphylaxis [facility] Medications Current Medications Medication Drug Class(es) Dates Sig (Normalized) Sig (Original) alendronic acid 70 mg oral tablet (20 sources) Bisphosphonate Start: 02-05-2023 End: 02-03-2025 take 1 tablet by mouth every week alendronate (Fosamax) 70 MG tablet Indications: Age-related osteoporosis without current pathological fracture TAKE 1 TABLET BY MOUTH ONE TIME PER WEEK 12 tablet 3 02/03/2025 Active take 1 tablet by mouth [...] mg oral tablet (20 sources) Vitamin D cholecalciferol (Vitamin D-3) 50 MCG (2000 UT) tablet 1 (one) time each day at the same time. Active cholecalciferol, vitamin D3, 2,000 units tablet Active diclofenac sodium 75 mg delayed release [...] Serotonin Reuptake Inhibitor Start: 11-19-2023 End: 11-17-2024 take 1 tablet by mouth once daily escitalopram (Lexapro) 20 MG tablet Indications: Other depression TAKE 1 TABLET BY MOUTH EVERY DAY 90 tablet 1 11/17/2024 Active Start: 06-03-2023 take 1 tablet [...] needed Orally ONCE A DAY Active prednisoln pu-lceqbjps-xglhfbs 1-0.5-0.075 % drops (1 source) Start: 5 prednisoln qw-nzxnvgfk-dzmflp n 1-0.5-0.075 % drops Instill 1 drop to eye in the morning and 1 drop at noon and 1 drop in the evening and 1 drop before bedtime. 01/12/2025 Active Prednisolon-Moxiflox- Bromfenac 1-0.5-0.075 % solution (10 sources) Start: 5 Prednisolon-Moxifl ox-Bromfenac 1-0.5-0.075 % [...] Active zolpidem tartrate 5 mg oral tablet (20 sources) gamma-Aminobutyric Acid-ergic Agonist Start: 4 End: [...] extended release oral tablet (2 sources) Uncompetitive B-vkggjz-P-asparta te Receptor Antagonist, Sigma-1 Agonist Start: 3 [...] Name Value Interpretation Reference Range Facil ity XR FOOT LT MIN 3Von 04-10-20 [place] [address] XRay Report Signed Patient: ARA BLACKBURN MR#: [id number] : 1960 Acct:[id number] Age/Sex: 64 / F ADM Date: 04/10/25 Loc: RAD Attending Dr: Gricel Mcclain D.P.M. Ordering Physician: Gricel Mcclain D.P.M. Date of Service: 04/10/25 Procedure(s): XR foot LT min 3V Accession Number(s): [id number] cc: GRICEL JOAQUIN ; Gricel Mcclain D.P.M. [place] [id number] Patient Name: ARA BLACKBURN MRN: [id number] date: 1960 Sex: F Assigned Patient Location: RAD Current Patient Location: RAD Accession/Order Number: [id number] Exam Date: 04/10/2025 14:30 Report Date: 04/10/2025 [...] PROCESS. Impression dictated by: Vamsi Rodarte Jr., D.OBrigette 04/10/2025 2:47 PM Dictation Location: [facility] Electronically authenticated by: [id number] Y Date: 04/10/2025 14:47 Dictated By: Vamsi Rodarte M.D. Signed By: 04/10/25 1449 DD/ 1447 TD/TT: Lead Electrician: [facility] Radiology, Radiologist, MD - 04/10/2025 [place] [address] XRay Report Signed Patient: ARA BLACKBURN MR#: [id number] : 1960 Acct:[id number] Age/Sex: 64 / F ADM Date: 04/10/25 Loc: [facility] Attending Dr: Gricel Mccalin D.P.M. Ordering Physician: Gricel Mcclain D.P.M. Date of Service: 04/10/25 Procedure(s): XR foot LT min 3V Accession Number(s): [id number] cc: GRICEL JOAQUIN ; Gricel Mcclain D.P.M. The [place] [id number] Patient Name: ARA BLACKBURN MRN: [facility]:[id number] date: 1960 Sex: F Assigned Patient Location: [facility] Current Patient Location: [facility] Accession/Order Number: [id number] Exam Date: 04/10/2025 14:30 Report Date: 04/10/2025 14:47 At the request of: PETER HIGHLANDER DPM Procedure: XR foot LT min 3V [...] Jr., D.O. 04/10/2025 2:47 PM Dictation Location: [employer] Electronically authenticated by: [id number] Y Date: 04/10/2025 14:47 Dictated By: Vamsi Rodarte M.D. Signed By: 04/10/25 1449 DD/ 1447 TD/TT: Lead Electrician: [facility] Rad[facility] Study observation (narrative) [facility] [employer] XR FOOT LT MIN 3VOrdered By: Radiologist Radiology on 04-10-2025 [employer] Work Phone: [place] MAMM SCREEN W/CAD IF PERF AND [...] VERY IMPORTANT TO YOUR HEALTH. THE CURRENT [employer] [...] Category 2-Benign finding Recommendation: Normal interval follow-up [facility] Radiology, Radiologist, MD - 02/05/2025 Exam Date/Time: [...] VERY IMPORTANT TO YOUR HEALTH. THE CURRENT [employer] CANCER [...] Category 2-Benign finding Recommendation: Normal interval follow-up [facility] MA MAMM SCREEN W/CAD IF PERF AND 3D BILOrdered By: Radiologist Radiology on 02-05-2025 [facility] [place] Work Phone: [place] Mamm Screen w/CAD if [...] VERY IMPORTANT TO YOUR HEALTH. THE CURRENT [employer] CANCER [...] 2-Benign finding Recommendation: Normal interval follow-up Normal [facility] MA MAMM SCREEN W/CAD IF PERF AND 3D BILon 02-03-2025 Radiology Study observation (narrative) [facility] [employer] US Eye+Orbit - bilateralon 0 01-12-2025 Diagnosis: Cataract both eyes (OU) Testing Indication: Performed for preop measurements in the determination of an intraocular lens (IOL) for both eyes (OU) Test Reliability: Good quality both eyes (OU) Interpretation: Good measurements for intraocular lens (IOL) calculation purposes. Calculation made for both eyes (OU). [facility] [employer] [facility] [employer] Radiology Study observation (narrative) [facility] CT Chest, Low Dose Screening on 08-05-2024 CT Chest, Low Dose Screening Exam Date/Time: 04/21/2024 15:51 EDT Reason for Exam: F17.210 Addendum No coronary artery calcification identified. Ordering Provider: Gricel Joaquin FINAL REPORT Dictated: 08/05/2024 5:12 pm Shady [...] as low as reasonably achievable. Ordering Provider: Gricel Joaquin FINAL REPORT Dictated: 04/23/2024 5:44 pm Shady Zamarripa MD Signed (Electronic Signature): 04/23/2024 5:44 pm Signed by: Shady Zamarripa MD Transcribed by: GEE Technologist: SHAY Report last revised on 08/05/2024 17:12 EST by Shady Zamarripa MD [facility] INFLUENZA A AND B AGon 0 03-18-2024 INFLUENZA VIRUS A ANTIGEN Negative [facility] Comment on above: Negative for Flu A p rotein antigen. Infection due to Flu A cannot be ruled out. Flu A antigen in the sample may be below the detection limit of the test. INFLUENZA VIRUS B ANTIGEN Negative [facility] Comment on above: Negative for Flu B p rotein antigen. Infection due to Flu B cannot be ruled out. Flu B antigen in the sample may be below the detection limit of the test. [facility] COVID + FLU Quick Testingon 06-21-2023 SARS-CoV-2 (COVID-19) RNA AMINA+probe Ql (Unsp spec) Negative [employer] [facility] Other COVID + FLU Quick Testing Positive [employer] [facility] Other COVID + FLU Quick Testing Negative [employer] [facility] Other NM BONE SCAN LIMITon 021 NM [...] by: HARJINDER WASHBURN Date: 2020-12-06 15:38 Normal [facility] Vital Signs Date Time Vital Sign Value Performing Clinician Facility 03-20-2025 16:57-0400 Body temperature 97.3 [degF] Ainsley Gonzalez APRN-MEDICAL ILLUSTRATOR [facility] Phone[facility] 03-20-2025 16:57-0400 Body weight 66.22 kg Ainsley Gonzalez APRN-MEDICAL ILLUSTRATOR [facility] 03-20-2025 16:57-0400 Diastolic blood pressure 58 mm[Hg] Ainsley Gonzalez FURNACE MECHANIC-MEDICAL ILLUSTRATOR [facility] 03-20-2025 16:57-0400 Heart rate 86 /min Ainsley Gonzalez FURNACE MECHANIC-MEDICAL ILLUSTRATOR Work Phone: [facility] [employer] [facility] 03-20-2025 16:57-0400 Respiratory rate 18 /min Ainsley Gonzalez FURNACE MECHANIC-MEDICAL ILLUSTRATOR Work Phone: [facility] [employer] [facility] 03-20-2025 16:57-0400 SaO2% (BldA) [Mass fraction] 96 % Ainsley Gonzalez FURNACE MECHANIC-MEDICAL ILLUSTRATOR Work Phone: [facility] [employer] [facility] 03-20-2025 16:57-0400 Systolic blood pressure 114 mm[Hg] Ainsley Gonzalez FURNACE MECHANIC-MEDICAL ILLUSTRATOR Work Phone: [facility] [employer] [facility] 01-16-2024 16:32-0400 Body height 170.2 cm Gricel Joaquin MD Work Phone: [facility] 01-16-2024 16:32-0400 Body mass index (BMI) [Ratio] 22.18 kg/m2 Gricel Joaquin MD Work Phone: [facility] 01-16-2024 16:32-0400 Body temperature 97.81 [degF] Gricel Joaquin MD Work Phone: [facility] 01-16-2024 16:32-0400 Body weight 64.23 kg Gricel Joaquin MD Work Phone: [facility] 01-16-2024 16:32-0400 Diastolic blood pressure 72 mm[Hg] Gricel Joaquin MD Work Phone: [facility] 01-16-2024 16:32-0400 Heart rate 85 /min Gricel Joaquin MD Work Phone: [facility] 01-16-2024 16:32-0400 SaO2% (BldA) [Mass fraction] 93 % Gricel Joaquin MD Work Phone: [facility] 01-16-2024 16:32-0400 Systolic blood pressure 118 mm[Hg] Gricel Joaquin MD Work Phone: [facility] 08-12-2023 14:59-0500 Body height 170.2 cm Gricel Joaquin MD Work Phone: [facility] 08-12-2023 14:59-0500 Body mass index (BMI) [Ratio] 22.46 kg/m2 Gricel Joaquin MD Work Phone: [facility] 08-12-2023 14:59-0500 Body temperature 97.59 [degF] Gricel Joaquin MD Work Phone: [facility] 08-12-2023 14:59-0500 Body weight 65.05 kg Gricel Joaquin MD Work Phone: [facility] 08-12-2023 14:59-0500 Diastolic blood pressure 68 mm[Hg] Gricel Joaquin MD Work Phone: [facility] 08-12-2023 14:59-0500 Heart rate 81 /min Gricel Joaquin MD Work Phone: [facility] 08-12-2023 14:59-0500 SaO2% (BldA) [Mass fraction] 96 % Gricel Joaquin MD Work Phone: [facility] 08-12-2023 14:59-0500 Systolic blood pressure 116 mm[Hg] Gricel Joaquin MD Work Phone: [facility] 06-21-2023 10:05-0500 Body height 172.72 cm Olimpia Mack Other [employer] [facility] Other 06-21-2023 10:05-0500 Body mass index (BMI) [Ratio] 21.5 kg/m2 Olimpia Mack Other [facility] Other 06-21-2023 10:05-0500 Body temperature 99 [degF] Olimpia Mack Other [facility] Other 06-21-2023 10:05-0500 Body weight 64.14 kg Olimpia Mack Other [facility] Other 06-21-2023 10:05-0500 Diastolic blood pressure 48 mm[Hg] Olimpia Mack Other [employer] [facility] Other 06-21-2023 10:05-0500 Respiratory rate 18 /min Olimpia Mack Other [employer] [facility] Other 06-21-2023 10:05-0500 SaO2% (BldA) [Mass fraction] 95 % Olimpia Mack Other [facility] Other 06-21-2023 10:05-0500 Systolic blood pressure 107 mm[Hg] Olimpia Mack Other [facility] Other 04-29-2022 14:15-0400 Body height 172.72 cm Katie Valerio Other [facility] [employer] [facility] Other 04-29-2022 14:15-0400 Body mass index (BMI) [Ratio] 20.83 kg/m2 Katie Briceñoault Other [facility] Other 04-29-2022 14:15-0400 Body temperature 98.1 [degF] Katie Briceñoault Other [facility] Other 04-29-2022 14:15-0400 Body weight 62.14 kg Katie Briceñoault Other [facility] Other 04-29-2022 14:15-0400 Diastolic blood pressure 64 mm[Hg] Katie Briceñoault Other [facility] [employer] [facility] Other 10-23-2022 14:15-0400 Respiratory rate 18 /min Katie Valerio Other [employer] [facility] Other 04-29-2022 14:15-0400 SaO2% (BldA) [Mass fraction] 94 % Katie Valerio Other [facility] Other 04-29-2022 14:15-0400 Systolic blood pressure 109 mm[Hg] Katie Valerio Other [employer] [facility] Other Encounters Encounter Date Encounter Type Care Provider Facility Start: 04-10-2025 End: 04-10-2025 [facility] Result Encounter Generic External Data Provider [facility] Unsolicited Start: 04-10-2025 End: 04-10-2025 [facility] Result Encounter Generic External Data Provider [facility] Unsolicited Start: 03-20-2025 End: 03-20-2025 ambulatory AINSLEY GONZALEZ [facility] Start: 03-20-2025 End: 03-20-2025 Office outpatient new 30 minutes Ainsley Maradiaga [place] FURNACE MECHANIC-MEDICAL ILLUSTRATOR Work Phone: [facility] [place] Comment on above: Viral illness (Prima ry Dx); Tobacco use Start: 02-23-2025 End: 02-23-2025 Postop follow up visit related to original px Chidi Guerrero DO Work Phone: [facility] Comment on above: Pseudophakia (Primar y Dx) Start: 02-23-2025 End: 02-23-2025 ambulatory CHIDI GUERRERO Not Available Start: 02-23-2025 End: 02-23-2025 Bamboo flowsheet Chidi Guerrero DO Work Phone: [facility] Start: 02-23-2025 End: 02-23-2025 Bamboo flowsheet Chidi Guerrero DO Work Phone: [facility] Start: 02-16-2025 End: 02-16-2025 Postop follow up visit related to original px Chidi D Zahler DO Work Phone: [facility] Comment on above: Pseudophakia (Primar y Dx) Start: 02-16-2025 End: 02-16-2025 ambulatory CHIDI Corey ESCALANTEHLER Not Available Start: 02-16-2025 End: 02-16-2025 Bamboo flowsheet Chidi D Zahler DO Work Phone: [facility] Start: 02-16-2025 End: 02-16-2025 Bamboo flowsheet Chidi D Zahler DO Work Phone: [facility] Start: 02-10-2025 End: 02-10-2025 Bamboo flowsheet Chidi D Zahler DO Work Phone: [facility] Start: 02-10-2025 End: 02-10-2025 Bamboo flowsheet Chidi D Zahler DO Work Phone: [facility] Start: 02-10-2025 End: 02-10-2025 ambulatory CHIDI D AVAHLER Not Available Start: 02-10-2025 End: 02-10-2025 Postop follow up visit related to original px Chidi D Zahler DO Work Phone: [facility] Comment on above: Pseudophakia (Primar y Dx); Age-related nuclear cataract of left eye Start: 02-03-2025 End: 02-03-2025 ambulatory Gricel Joaquin Facility:[facility] Start: 02-03-2025 End: 02-05-2025 [facility]inis[facility] Result Encounter Gricel Joaquin MD Work Phone: [facility] External Department Unsolicited Start: 02-03-2025 End: 02-05-2025 [facility] Result Encounter Gricel Joaquin MD Work Phone: [facility] External Department Unsolicited Start: 01-30-2025 End: 02-03-2025 Refill Gricel Joaquin MD Work Phone: [facility] Comment on above: Age-related osteopor osis without current pathological fracture Start: 01-12-2025 End: 01-12-2025 Bamboo flowsheet Chidi Guerrero DO Work Phone: [facility] Start: 01-12-2025 End: 01-12-2025 Bamboo flowsheet Chidi Guerrero DO Work Phone: [facility] Start: 01-12-2025 End: 01-12-2025 Office outpatient new 45 minutes Chidi Guerrero DO Work Phone: [facility] Comment on above: Age-related nuclear cataract of both eyes (Primary Dx) Start: 01-12-2025 End: 01-12-2025 ambulatory CHIDI GUERRERO Not Available Start: 01-01-2025 End: 01-01-2025 Telephone encounter Gricel Joaquin MD Work Phone: [facility] Comment on above: Request For Order(s) Start: 11-14-2024 End: 11-17-2024 Refill Gricel Joaquin MD Work Phone: [facility] Comment on above: Other depression Start: 05-16-2024 End: 05-18-2024 Refill Gricel Joaquin MD Work Phone: [facility] Comment on above: Other depression (CM S/HCC) Start: 04-21-2024 End: 04-21-2024 ambulatory Gricel Joaquin Facility:[facility] Start: 04-21-2024 End: 04-21-2024 Patient encounter procedure Gricel Joaquin [facility] Start: 03-18-2024 End: 03-18-2024 Bamboo flowsheet Lisa Manuel DEGREASING SOLUTION [employer]IXER Work Phone: [facility] Start: 03-18-2024 End: 03-18-2024 Bamboo flowsheet Lisa Manuel DEGREASING SOLUTION M[employer]ER Work Phone: [facility] Start: 03-18-2024 End: 03-18-2024 Clinisync Result Encounter Lisa Manuel DEGREASING SOLUTION MIXER Work Phone: [facility] Unsolicited Start: 03-18-2024 End: 05-13-2024 Telephone encounter Lisa Manuel DEGREASING SOLUTION M[employer]ER Work Phone: [facility] Start: 03-18-2024 End: 03-18-2024 ambulatory LISA J MAR Not Available Start: 03-18-2024 End: 03-18-2024 Office outpatient visit 15 minutes Lisa Manuel [employer]GRE[employer]ING SOLUTION M[employer]ER Work Phone: [facility] Comment on above: Chills (Primary Dx); Chest congestion; Acute cough; Fever, unspecified fever cause; Body aches; COVID Start: 02-25-2024 End: 02-28-2024 Telephone encounter Gricel Joaquin MD Work Phone: [facility] Start: 01-16-2024 End: 01-16-2024 Office outpatient visit 25 minutes Gricel Joaquin MD Work Phone: [facility] Comment on above: Other insomnia (Prim leonidas Dx); Musculoskeletal chest pain Start: 08-12-2023 End: 08-12-2023 Patient encounter procedure Gricel Joaquin [facility] Start: 08-12-2023 End: 08-12-2023 Office outpatient visit 25 minutes Gricel Joaquin MD Work Phone: [facility] Comment on above: Chronic bilateral lo w back pain without sciatica (Primary Dx); Right hip pain; Left hip pain; Major depressive disorder, recurrent, mild (F33.0) Start: 06-21-2023 End: 06-21-2023 ambulatory Olimpia Makc Other [employer] [facility] Other Start: 06-21-2023 Office outpatient vi sit 15 minutes Olimpia Mack [facility] [place] Start: 05-27-2023 End: 05-27-2023 Patient encounter procedure SELF REFERRAL [facility] Start: 10-02-2022 End: 10-02-2022 Patient encounter procedure Gricel Joaquin [facility] Start: 04-29-2022 End: 04-29-2022 ambulatory Katie Valerio Other [employer] Other Start: 04-29-2022 Office outpatient ne w 20 minutes Katie Valerio [facility] [place] Start: 04-17-2022 End: 04-17-2022 Patient encounter procedure Gricel Joaquin [facility] Start: 12-02-2020 End: 12-03-[address] NICOLE Maradiaga [facility] Facility: Procedures Date Procedure Procedure Detail Performing Clinician Start: 04-10-2025 XR FOOT LT MIN 3V Generic External Jey a Provider Start: 02-03-2025 MA MAMM SCREEN W/CAD IF PERF AND 3D JACOBO Gricel Joaquin MD Work Phone: Start: 02-03-2025 Mammography Gricel Joaquin MD Work Phone: Start: 01-12-2025 Oph bmtry prtl coher intrfrmtry io lens pwr madeline Chidi Guerrero DO Work Phone: Start: 03-18-2024 TB INFLUENZA A AND B AG Lisa Manuel NP Work Phone: Start: 04-25-2023 H/O: hysterectomy Status post hysterectomy Gricel Joaquin MD Work Phone: Start: 04-17-2022 Mammography Gricel Joaquin MD Work Phone: Plan of Treatment Date Care Activity Detail Author Start: 02-28-2034 DTaP,Tdap and Td Vaccines (2 - Td or Tdap) DTaP,Tdap and Td Vaccines (2 - Td or Tdap) [facility] Start: 05-04-2026 Screening for malign ant neoplasm of colon [facility] Start: 03-20-2026 Tobacco Screening Tobacco Screening [facility] Start: 02-03-2026 Screening for malign ant neoplasm of breast Mammogram [facility] Start: 04-26-2025 End: 04-26-2025 Patient encounter procedure 04/26/2025 3:45 PM EDT Office Visit [facility] [address] [place] [address] Gricel Joaquin MD [address] [place] [address] [facility] Start: 03-08-2025 COVID-19 Vaccine ( season) COVID-19 Vaccine ( season) [facility] Start: 03-08-2025 Influenza vaccination [facility] Start: 02-23-2025 End: 02-23-2025 Patient encounter procedure 02/23/2025 3:00 PM EDT Office Visit [facility] [address] [place] [address] Chidi Guerrero DO [address] [place] [address] Arrived [facility] Comment on above: Arrived Start: 02-16-2025 End: 02-16-2025 Patient encounter procedure [facility] Comment on above: Arrived Start: 02-10-2025 End: 02-10-2025 Patient encounter procedure 02/10/2025 1:15 PM EDT Office Visit [facility] [address] [place] [address] Chidi Guerrero DO [address] [place] [address] [facility] Start: 01-12-2025 End: 01-12-2025 Patient encounter procedure [facility] Comment on above: Arrived Start: 08-11-2024 End: 08-12-2024 XR Hip - left 3 Views XR hip left 2 or 3 views Imaging Routine Left hip pain Expected: 08/11/2024, Expires: 08/12/2024 [facility] Comment on above: Expected: 08/11/2024 , Expires: 08/12/2024 Start: 08-11-2024 End: 08-12-2024 XR Hip - right 3 Views XR hip right 2 or 3 views Imaging Routine Right hip pain Expected: 08/11/2024 (Approximate), Expires: 08/12/2024 [facility] Work Phone: Comment on above: Expected: 08/11/2024 (Approximate), Expires: 08/12/2024 Start: 08-11-2024 End: 08-12-2024 XR Lumbar spine 4 Views XR lumbar spine complete 4+ views Imaging Routine Chronic bilateral low back pain without sciatica Expected: 08/11/2024, Expires: 08/12/2024 [facility] Comment on above: Expected: 08/11/2024 , Expires: 08/12/2024 Start: 03-18-2024 End: 03-18-2025 COVID-19 ANTIGEN ([facility]) COVID-19 ANTIGEN ([facility]) Lab Routine Fever, unspecified fever cause Body aches Expected: 03/18/2024 (Approximate), Expires: 03/18/2025 [facility] Comment on above: Expected: 03/18/2024 (Approximate), Expires: 03/18/2025 Start: 03-18-2024 End: 03-18-2025 Influenza virus A+B Ag [Presence] in Unspecified specimen by Immunoassay Rapid influenza A/B antigens Microbiology Routine Chills Chest congestion Acute cough Fever, unspecified fever cause Body aches Expected: 03/18/2024 (Approximate), Expires: 03/18/2025 [facility] Work Phone: Comment on above: Expected: 03/18/2024 (Approximate), Expires: 03/18/2025 Start: 03-08-2024 Influenza vaccination Influenza Vacc ine (#1) [facility] Start: 04-17-2023 Screening for malign ant neoplasm of breast Mammogram [facility] Start: 1978 Adult BMI Screening Adult BMI Screen ing [facility] Start: 1972 Depression Screening Depression Scre ening [facility] Start: 1960 Screening for malign ant neoplasm of colon [facility] Start: 1960 Screening for malign ant neoplasm of lung Lung Cancer Screening Shared Decision Making [facility] Start: 1960 Tobacco Counseling Tobacco Counselin g [facility] Immunizations Immunization Date Immunization Notes Care Provider Fa cility 04-11-2024 influenza virus vacc ine, unspecified formulation Chidi Guerrero DO Work Phone: [facility] 04-19-2023 Influenza, injectabl e, Madin Lopez Canine Kidney, preservative free, quadrivalent Gricel Joaquin MD Work Phone: [facility] 04-19-2023 influenza virus vacc ine, unspecified formulation Gricel Joaquin MD Work Phone: [facility] 03-28-2022 influenza, injectabl e, quadrivalent, contains preservative Gricel Joaquin MD Work Phone: [facility] 07-22-2021 zoster vaccine recombinant Gricel Joaquin MD Work Phone: [facility] 05-19-2021 zoster vaccine recombinant Gricel oJaquin MD Work Phone: [facility] 04-20-2021 Influenza, injectabl e, Madin Lopez Canine Kidney, preservative free, quadrivalent Gricel Joaquin MD Work Phone: [facility] 04-29-2019 influenza, injectabl e, quadrivalent, preservative free Gricel Joaquin MD Work Phone: [facility] 05-13-2018 influenza, seasonal, injectable, preservative free Gricel Joaquin MD Work Phone: [facility] 05-11-2018 Influenza, injectabl e, Madin Lopez Canine Kidney, preservative free, quadrivalent Gricel Joaquin MD Work Phone: [facility] Payers Date Payer Category Payer Blue [facility] ld Managed Care - Other BCBS [place] [id number] 2019 Blue [facility] [id number] 2019 Unknown BC BCBS [id number] 2019-Present [phone] [address] [place] [address] [id number] 2019 Unknown [id number] 1960 Unknown [id number] 9.2.593 1960 Unknown [id number] 9.2.727 1960 Unknown [id number] 9.2.727 1960 Unknown [id number] 9.2.1259 1960 Unknown [id number] 9.2.1259 1960 Unknown [id number] 9.2.1259 1960 Unknown [id number] 9.2.1259 1960 Unknown [id number] 9.2.1259 1960 Unknown [id number] 9.2.1286 1959 Unknown [id number] Social History Date Type Detail Facility Tobacco smoking status [facility] Start: 04-25-2023 End: 08-12-2023 Sex Assigned At Female [facility] Start: 08-20-1979 End: 01-12-2025 Tobacco smoking status SCIS Smokes tobacco daily [facility] Start: 08-20-1979 History of tobacco use Cigarette Smo ker [facility] Start: 04-25-2023 End: 08-12-2023 Cigarettes smoked current (pack per day) - Reported 1 [facility] History of tobacco use Passive smoker [facility] Start: 04-25-2023 End: 03-02-2024 Tobacco use and exposure Smokeless tobacco non-user [facility] Start: 08-12-2023 End: 02-23-2025 Alcohol intake [...] use and exposure User of smokeless tobacco [facility] Start: 11-19-2015 Sex Female (finding) [facility] 04-29-2022 to 03-20-2025 [facility]insley Gonzalez[facility] - 03/20/2025 4:30 PM EDTPatient InstructionsAttachmentsChidi Guerrero, DO - 02/23/2025 3:00 PM EDTChidi Guerrero, DO - 02/16/2025 3:00 PM EDT Note Date & Type Note Facility 03-20-2025 History of Presen t illness Narrative Subjective: Patient ID: Ara Blackburn is a 64 y.o. female. Chief Complaint [...] (Patient not taking: Reported on 03/20/2025) prednisoln vj-nkedhumw-vvzctsg 1-0.5-0.075 % drops Instill 1 drop to [...] tenderness or frontal sinus tenderness. Mouth/Throat: Lips: Park. Mouth: Mucous membranes are moist. Pharynx: Uvula [...] --patient is COVID vaccinated, up to date. Ara was seen today for illness. Diagnoses and all orders for this visit: Viral illness Tobacco use Orders Placed or Reconciled This Encounter Medications prednisoln mu-attjkflq-scfkrvq 1-0.5-0.075 % drops Sig: Instill 1 drop [...] a primary care practice. NEED A PROVIDER? -246-PPG DOCS // [facility] If you have been prescribed any medications during your visit today, those medications have been discussed with you including: Dose, frequency, duration, and potential side effects. Every individual responds differently to each medication, please use caution until you understand how each medication affects you individually. If you have been recommended dejd-abe-gcbyksx medications please use those medications as indicated [...] Mera 03/21/25 0721 [facility] Instructions FELIPE Mera - 03/20/2025 4:30 [...] a primary care practice. NEED A PROVIDER? 1-800-PPG DOCS // or [facility]. If you have been prescribed any medications during your visit today, those medications have been discussed with you including: Dose, frequency, duration, and potential side effects. Every individual responds differently to each medication, please use caution until you understand how each medication affects you individually. If you have been recommended ofsp-twa-qkbclol medications please use those medications as indicated on their packaging detail. The following attachments cannot be sent through Care Everywhere.Quitting smoking for adults (Irish)Environmental allergies in adults (Irish)Cough? Adult ED (Irish)documented [facility] 02-23-2025 History of Presen t illness Narrative Images from the original note were not included. Assessment/Plan Diagnoses and all orders for this visit: Pseudophakia - s/p CE OS (POD #7): Patient provided with post-op form. Instructed to continue drops. Discontinue eye shield. Instructed to call immediately with increased pain, redness, decreased vision, questions or concerns. documented in this encounter [facility] 02-16-2025 History of Presen t illness Narrative Images from the original note were not included. Assessment/Plan Diagnoses and all orders for this visit: Pseudophakia - s/p CE OS (POD #1): Patient provided with post-op form. Instructed to continue drops as well as shield. Instructed to call immediately with increased pain, redness, decreased vision, questions or concerns. documented in this encounter [facility] 02-10-2025 History of Presen t illness Narrative [...] different lens options were explained including the qwg-qo-hnawlv fees for any upgrades. Intraocular lens (IOL) [...] no pitting edema. documented in this encounter [facility] 01-12-2025 History of Presen t illness Narrative Images from the original note were not included. Subjective Patient ID: Ara Blackburn is a 64 y.o. female. Chief Complaint [...] Medications (Ophthalmic Agents) Medication Sig Dispense Refill Rhqymfitqad-Vgcjudlv-Nmmlzihti 1-0.5-0.075 % solution Administer 1 drop into [...] tablet 1 cholecalciferol (Vitamin D-3) 50 MCG (1999) tablet [...] Past Medical History: Diagnosis Date Cataract Depression 9 03 29 Osteoporosis Scoliosis Allergies Allergen Reactions Sulfanilamide Anaphylaxis [...] @ 1:05 PM Additional Tests Keratometry K1 [place] K2 [place] Right 44.00 169 44.75 79 Left 44.75 [...] Normal Normal Refraction Wearing Rx Sphere Cylinder [place] Add Right -1.50 -0.75 158 +2.25 Left -2.00 -0.25 117 +2.00 Manifest Refraction Sphere Cylinder [place] Right -1.00 -0.75 113 Left -2.25 -0.25 063 Final Rx Sphere Cylinder [place] Dist [place] Right -1.00 -0.75 145 20/50 [...] different lens options were explained including the uho-sr-arbeor fees for any upgrades. Intraocular lens (IOL) [...] OS - 02/15. documented in this encounter [facility] 01-01-2025 Telephone encounter Note Pt would like a mammogram, she asked for it to be sent to [facility] 01-01-2025 Miscellaneous Notes Pt would like a mammogram, she asked for it to be sent to [facility] documented in this encounter [facility] 05-13-2024 Telephone encounter Note error [facility] Work Phone: 05-13-2024 Miscellaneous Notes error documented in this encounter [facility] 03-18-2024 History of Presen t illness Narrative Ara Blackburn is a 63 y.o. female presents with [...] influenza A/B antigens; Future - COVID-19 ANTIGEN ([facility]); Future Body aches - Rapid influenza A/B antigens; Future - COVID-19 ANTIGEN ([facility]); Future COVID test results positive. Patient advised [...] coordination of care. documented in this encounter [facility] 01-16-2024 History of Presen t illness Narrative Images from the original note were not included. Ara Blackburn is a 63 y.o. female presents with [...] Vaccine (1) 03/08/2024 documented in this encounter [facility] 08-12-2023 History of Presen t illness Narrative Ara Blackburn is a 62 y.o. female presents with [...] MCG (2000 UT) tablet Every 24 hours escitalopram (LEXAPRO) 20 [...] decisions I made. documented in this encounter [facility] 06-21-2023 Evaluation note Encounter Date Diagnosis Assessment [...] you develop shorntess of breath, chest pain. [employer] Other 10-23-2022 Evaluation note* Encounter Date Diagnosis [...] occur., Sciatica home care material was printed [employer] Other Evaluation + Plan note No data available for this section [facility] Chronic bilateral low back pain without sciatica- Primary Right hip pain Pain in joint, pelvic region and thigh Left hip pain Pain in joint, pelvic region and thigh Major depressive disorder, recurrent, mild (F33.0) Major depressive disorder, recurrent episode, mild [facility] Diagnosis Other depression (CMS/HCC) documented [facility] this encounter [facility]* Diagnosis Other insomnia- Primary Musculoskeletal chest pain Other chest pain documented in this encounter [facility]* Diagnosis Chills- Primary Chills (without fever) Chest congestion Other symptoms involving respiratory system and chest Acute cough Fever, unspecified fever cause Body aches Generalized pain COVID documented in this encounter [facility]* Diagnosis Other depression documented in this encounter [facility]* Diagnosis Age-related nuclear cataract of both eyes- Primary documented in this encounter [facility]* Diagnosis Age-related osteoporosis without current pathological fracture documented in this encounter [facility]* Diagnosis Pseudophakia- Primary Lens replaced by other means Age-related nuclear cataract of left eye documented in this encounter [facility]* Diagnosis Pseudophakia- Primary Lens replaced by other means documented in this encounter [facility]* Diagnosis Viral illness- Primary Unspecified viral infection, in conditions classified elsewhere and of unspecified site Tobacco use [facility] - [facility]* Type Description Date Medical History ANXIETY Medical History DEPRESSION Medical History OSTEOPORESIS Surgical History Surgical History HYSTERECTOMY Surgical History KIDNEY STENTS X9 Hospitalization History SEE ABOVE [employer] Other Hospital Discharge instructions No data available for this section [facility] No data available for this section [facility] Summary Purpose Family History No Family History [...] and content) DATE CREATED AUTHOR 12/07/2020 [facility] DATE CREATED AUTHOR AUTHOR'S ORGANIZ ATION 02/14/[address] 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 Start Date End Date Gricel Joaquin MD [address] [place] [address] PCP - [employer] 11/05/20 Gricel Joaquin MD [address] [place] [address] PCP - General Family Medicine 11/13/22 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 Start Date End Date Gricel Joaquin MD [address] [place] [address] PCP - [employer] 11/05/20 Gricel Joaquin MD [address] [place] [address] PCP - General Family Medicine 11/13/22 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 Start Date End Date Gricel Joaquin MD [address] [place] [address] PCP - [employer] 11/05/20 Gricel Joaquin MD [address] [place] [address] PCP - General Family Medicine 11/13/22 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 Start Date End Date Gricel Joaquin MD [address] [place] [address] PCP - [employer] 11/05/20 Gricel Joaquin MD [address] [place] [address] PCP - General Family Medicine 11/13/22 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 Start Date End Date Gricel Joaquin MD [address] [place] [address] PCP - [employer] 11/05/20 Gricel Joaquin MD [address] [place] [address] PCP - General Family Medicine 11/13/22 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 Start Date End Date Gricel Joaquin MD [address] [place] [address] PCP - General Family Medicine 11/13/22 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 Start Date End Date Gricel Joaquin MD [address] [place] [address] PCP - General Family Medicine 11/13/22 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 Start Date End Date Gricel Joaquin MD [address] [place] [address] PCP - General Family Medicine 11/13/22 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 Start Date End Date Gricel Joaquin MD [address] [place] [address] PCP - General Family Medicine 11/13/22 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 Start Date End Date Gricel Joaquin MD [address] [place] [address] PCP - General Family Medicine 11/13/22 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 Start Date End Date Gricel Joaquin MD [address] [place] [address] PCP - General Family Medicine 11/13/22 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 [facility] [employer] [facility]. provides no warranty or guarantee of the accuracy or completeness of information in this document.
== END 2025-04-20 14:25 | disposition home or self-care (01) ==
LOC: MRI 14:25
PROVIDERS: PCP Family Medicine; Visit Provider Podiatrist Foot & Ankle Surgery
DX: M84.375D Stress fracture, left foot, subsequent encounter for fracture with routine healing (principal)
CPT/HCPCS: 73718

== ENCOUNTER 2025-05-21 13:59 | Outpatient (OUT) | payer BC, SELFPAY ==
--- OUTSIDE RECORDS SUMMARY | 2025-05-21 14:06 | XMS_ITS | CCD ---
Author Organization [facility] [place] [facility] Team Providers Care Towel Sewer Name Role Phone TYLOR, DR NICOLE Maradiaga Attending Unava ilable PENSIERO, DR NICOLE Maradiaga Consulting Unava ilable PENSIERO, DR NICOLE Maradiaga Admitting Unava ilable Brijesh Stevens Primary Care Physician Katie Valerio Unavailable Gricel Joaquin Primary Care Physician Olimpia Giron Unavailable Gricel Joaquin MD Primary Care Provider Gricel Joaquin MD Unavailable [phone] Gricel Joaquin Admitting Unavailable Gricel Joaquin Attending Unavailable Gricel Joaquin Referring Unavailable Gricel Joaquin Admitting Unavailable Gricel Joaquin Attending Unavailable Gricel Joaquin Referring Unavailable Unavailable Primary Care Provider UnavailAINSLEY Hernandes Attending Unavailable Gricel Joaquin MD Unavailable CHIDI GUERRERO Attending Unavailable RODRIGO LEPE Referring Unavailable CHIDI GUERRERO Attending Unavailable CHIDI GUERRERO Attending Unavailable CHIDI GUERRERO Attending Unavailable GRICEL JOAQUIN Attending Unavailable CHIDI GUERRERO Attending Unavailable Allergies Allergy ClassificationReported Allergen(s)Allergy TypeDate of OnsetReaction(s) FacilitySulfamethizole (1 source)SulfamethizoleDrug Zhgkxlh79-22-1300MjsSt. [facility] (1 source)SulfonamideDrug allergyUnkGenomindSaint Luke's Health System tagUin Other (1 source)Substance with sulfonamide structure and antibacterial mechanism of action (substance)Drug allergyLee's Summit Hospital tagUin Other (20 sources)Cephalexin; Translations: [CEPHALEXIN]Drug Uzfsbbg33-44-1273[facility] (20 sources)Ciprofloxacin; Translations: [CIPROFLOXACIN]Drug Ruzokxx35-82-3801 [facility] (20 sources)Sulfanilamide; Translations: [SULFANILAMIDE]Allergy to substance 27-99-4047QdvmhcryhgjJRWF Healthcare (1 source)SulfanilamideDrug Adfllay16-53-3932DzfiiettuviYrnClyswf Health System Medications Current Medications MedicationDrug Class(es)DatesSig (Normalized)Sig (Original)alendronic acid 70 mg oral tablet (20 sources)BisphosphonateStart: 02-05-2023 End: 47-35-2032vshl 1 tablet by mouth every weekalendronate (Fosamax) 70 MG tablet Indications: Age-related osteoporosis without current pathological fracture TAKE 1 TABLET BY MOUTH ONE TIME PER WEEK 12 tablet 3 02/03/2025 Active take 1 tablet by mouth once dailyFosamax 70 MG 1 tablet 30 minutes before the first food, beverage or medicine of the day with plainwater Orally Active amoxicillin 875 mg / clavulanate 125 mg oral tablet (4 sources)Penicillin-class AntibacterialStart: 03-18-2024 End: 10-74-8958mnyb 1 tablet by mouth in the morningamoxicillin-clavulanate (Augmentin) 875-125 MG tablet Indications: Chest congestion , Acute cough Take 1 tablet (875 mg) by mouth in the morning and 1 tablet (875 mg) before bedtime. Do all this for 10 days. 20 tablet 03/18/2024 03/28/2024 Activebenzonatate 200 mg oral capsule (1 source)Non-narcotic AntitussiveStart: 09-26-6552lpni 1 capsule by mouth every eight hoursBenzonatate 200 MG 1 capsule Orally Three times a day for 3 days Jun, ActivebusPIRone hydrochloride 5 mg oral tablet (20 sources)Start: 03-07-2023 End: 36-61-1845gspw 1 tablet by mouth twice dailybusPIRone (Buspar) 5 MG tablet Indications: Anxiety TAKE 1 TABLET BY MOUTH TWICE A DAY 180 tablet 04/28/2025 Discontinuedtake 1 tablet by mouth every twenty-four hoursbusPIRone HCl 10 MG 1 tablet Orally ONCE A DAY Activecalcium carbonate 1250 mg oral tablet (2 sources)take 1 tablet by mouth every twenty-four hoursCalcium 500 MG 1 tablet with meals Orally Once a day Activetake 1 tablet by mouth every twenty-four hoursCalcium 500 MG 1 tablet with meals Orally Once a day Activecholecalciferol 0.05 mg oral tablet (20 sources)Vitamin Dcholecalciferol (Vitamin D-3) 50 MCG (2000 UT) tablet 1 (one) time each day at the same time. Activecholecalciferol, vitamin D3, 2,000 units tablet Activefluticasone propionate 0.05 mg/actuat metered dose nasal spray (1 source)CorticosteroidStart: 66-08-2504eycz 1 spray(s) nasal route once daily Fluticasone Propionate 50 MCG/ACT 1 spray in each nostril Nasally Once a day for 14 Jun, ActiveMultiple Vitamins-Minerals (Multivitamin Adults 50+) tablet (20 sources)Multiple Vitamins-Minerals (Multivitamin Adults 50+) tablet Orally ActiveMultiple Vitamins-Minerals (Multivitamin Adults 50+) tablet Orally 0 ActiveMultivitamin preparation (2 sources)take 1 tablet by mouth once dailyMulti Vitamin - 1 tablet Orally Once a day Activenaproxen 500 mg oral tablet (2 sources)Nonsteroidal Anti-inflammatory Drugtake 1 tablet by mouth once daily at mealtime as neededNaproxen 500 MG 1 tablet with food or milk as needed Orally ONCE A DAY Activeprednisoln lh-fexitdbg-kawzcko 1-0.5-0.075 % drops (1 source)Start: 00-41-2042ildnwwmopf bg-whqmyhfd-ajhosti 1-0.5-0.075 % drops Instill 1 drop to eye in the morning and 1 drop at noon and 1 drop in the evening and 1 drop before bedtime. 01/12/2025 ActivetraZODone hydrochloride 100 mg oral tablet (4 sources)Serotonin Reuptake InhibitorStart: 04-26-2025 End: 73-33-1828zamVWQrka (Desyrel) 100 MG tablet Indications: Primary insomnia Take 1 tablet (100 mg) by mouth as needed at bedtime for sleep 90 tablet 3 04/26/2025 04/26/2026 ActiveVitamin D (Cholecalciferol) 10 MCG (400 UNIT) (2 sources)take 1 tablet by mouth once dailyVitamin D (Cholecalciferol) 10 MCG (400 UNIT) 1 tablet Orally Once a day Active Completed/Discontinued Medications MedicationDrug Class(es)DatesSig (Normalized)Sig (Original)cyclobenzaprine hydrochloride 10 mg oral tablet (4 sources)Muscle RelaxantStart: 04-29-2022 End: 19-15-3437qtzc 1 tablet by mouth three times daily as neededcyclobenzaprine (Flexeril) 10 MG tablet TAKE 1 TABLET BY MOUTH THREE TIMES A DAY NEEDED FOR 10 DAYS 0 04/29/2022 08/12/2023 Fspreqaethbk06 hr dextromethorphan hydrobromide 60 mg / guaiFENesin 1200 mg extended release oral tablet (2 sources)Uncompetitive M-kslsqt-C-aspartate Receptor Antagonist, Sigma-1 AgonistStart: 09-07-2022 End: 91-11-9320kvbq 60-1200 mg by mouth every twelve hours as needed Dextromethorphan-guaiFENesin ([employer] Mucus DM Extended Release) 60-1200 MG tablet sustained-release 12hour TAKE 1 TABLET BY MOUTH EVERY 12 HOURS NEEDED FOR 14 DAYS 0 09/07/2022 08/12/2023 Discontinueddiclofenac sodium 75 mg delayed release oral tablet (20 sources)Nonsteroidal Anti-inflammatory DrugStart: 08-12-2023 End: 83-03-4802vblm 1 tablet by mouth in the morningdiclofenac (Voltaren) 75 MG EC tablet Indications: Chronic bilateral low back pain without sciatica, Right hip pain , Left hip pain Take 1 tablet (75 mg) by mouth in the morning and 1 tablet (75 mg)before bedtime. Do not crush, chew, or split.. 60 tablet 3 08/12/2023 12/25/2023 Discontinuedescitalopram 20 mg oral tablet (20 sources)Serotonin Reuptake InhibitorStart: 06-03-2023 End: 41-00-8505yfqa 1 tablet by mouth once dailyescitalopram (Lexapro) 20 MG tablet Indications: Other depression TAKE 1 TABLET BY MOUTH EVERY DAY 90 tablet 1 11/17/2024 04/26/2025 Discontinuedtake 1 tablet by mouth every twenty-four hoursLexapro 10 MG 1 tablet Orally Once a day Activeibuprofen 800 mg oral tablet (13 sources)Nonsteroidal Anti-inflammatory DrugStart: 04-25-2023 End: 74-08-9733dfgz 1 tablet by mouth in the morning, then take 1 tablet by mouth in the evening, then take 1 tablet by mouth at bedtimeibuprofen 800 MG tablet Indications: Chronic bilateral low back pain without sciatica Take 1 tablet(800 mg) by mouth in the morning and 1 tablet (800 mg) in the evening and 1 tablet (800 mg) before bedtime. 90 tablet 11 04/25/2023 04/24/2024 Expiredtake 2-3 tablets by mouth three times daily at mealtime as neededIbuprofen 200 MG 2- 3 tablet with food or milk as needed Orally Three times a day Active methylPREDNISolone (4 sources)CorticosteroidStart: 04-29-2022 End: 29-05-8081ewihnyFSFHNNXaovrc (Medrol Dospak) 4 MG tablets TAKE 6 TABLETS ON DAY 1 DIRECTED ON PACKAGE AND DECREASE BY 1 TAB EACH DAY FOR A TOTAL OF 6 DAYS 0 04/29/2022 08/12/2023 DiscontinuedStart: 42-52-7576crwkqqBFFEEVIzpjcx 4 MG as directed Orally Once a day for 6 days Apr, Not-Taking/PRN24 hr nicotine 0.583 mg/hr transdermal system (4 sources)Cholinergic Nicotinic AgonistStart: 09-07-2022 End: 15-50-1978oznftiva (Nicoderm, Step 2) 14 MG/24HR patch 1 (one) time each day at the same time. 0 09/07/2022 08/12/2023 DiscontinuedStart: 09-07-2022 End: 82-54-9289keswvfmm (Nicoderm, Step 3) 7 MG/24HR patch 1 (one) time each day at the same time. 0 09/07/2022 08/12/2023 Discontinued Thqviujaxfk-Ohqiopts-Eeyhwuvzd 1-0.5-0.075 % solution (14 sources)Start: 01-12-2025 End: 82-16-3484Ifzlbvfmbyx-Moxiflox-Bromfenac 1-0.5-0.075 % solution Indications: Age-related nuclear cataract of both eyes Administer 1 drop into affected eye(s) in the morning and 1 drop at noon and 1 drop in theevening and 1 drop before bedtime. 10 mL 1 01/12/2025 04/26/2025 DiscontinuedStart: 35-05-1709Oxaryqrhlmw-Moxiflox-Bromfenac 1-0.5-0.075 % solution Indications: Age-related nuclear cataract of both eyes Administer 1 drop into affected eye(s) in the morning and 1 drop at noon and 1 drop in theevening and 1 drop before bedtime. 10 mL 1 01/12/2025 Activetemazepam 15 mg oral capsule (2 sources)BenzodiazepineStart: 09-07-2022 End: 51-81-5310cojiqembx (Restoril) 15 MG capsule 1 (one) time each day at the same time. 0 09/07/2022 08/12/2023 Discontinuedzolpidem tartrate 5 mg oral tablet (20 sources)gamma-Aminobutyric Acid-ergic AgonistStart: 01-16-2024 End: 09-59-7744cyzqvjfo (Ambien) 5 MG tablet Indications: Other insomnia Take 1 tablet (5 mg) by mouth as needed at bedtime for sleep 30 tablet 2 01/16/2024 04/26/2025 Discontinued Problems Active Problems Problem ClassificationProblemDateDocumented DateEpisodic/ChronicAdjustment disorders (20 sources)Adjustment disorder with depressed mood; Translations: [Adjustment disorder with depressed mood]Onset: 095267-53-6806SefbanmOaoloqf disorders (20 sources)Generalized anxiety disorder; Translations: [Generalized anxiety disorder]Onset: 695891-46-4506HsxcpidYjrhlbvh (20 sources)Bilateral age-related nuclear cataracts; Translations: [Age-related nuclear cataract, bilateral]Onset: 01-12-2025 Resolved: 852314-93-9909BoyfmbhSsgzxheil (1 source)Influenza due to other identified influenza virus with other respiratory manifestationsEpisodicMenopausal disorders (2 sources)Decreased estrogen level; Translations: [Other primary ovarian failure]90-18-6968XxyhzskWfycihbyfsiqt mental health disorders (20 sources)Psychophysiologic insomnia; Translations: [Psychophysiologic insomnia]Onset: 693624-34-4701KuxpsmkYthk disorders (20 sources)Recurrent major depressive episodes, mild ; Translations: [Major depressive disorder, recurrent, mild]Onset: 114888-54-7809Kzlhlfs Osteoporosis (20 sources)Osteoporosis; Translations: [Age-related osteoporosis without current pathological fracture]Onset: 779108-96-5630SknqvfcMbqwa non- traumatic joint disorders (2 sources)Pain in right hip joint; Translations: [Pain in right hip]08-12-2023 EpisodicOther non-traumatic joint disorders (2 sources)Hip pain; Translations: [Pain in left hip]70-60-0174PujnqvlqOmrbg screening for suspected conditions (not mental disorders or infectious disease) (4 sources)Patient encounter status; Translations: [Encounter for screening for lipoid disorders]58-32-0461CtakodsjLnahrifz codes; unclassified (2 sources)Insomnia; Translations: [Other insomnia]49-98-7170HumceskVnehjuvk codes; unclassified (1 source)Tobacco use and exposure - finding; Translations: [Tobacco use] 40-11-2922HuamkgmdSfkbdryi codes; unclassified (1 source)Tobacco use; Translations: [Tobacco use]Onset: 22-31-3819Ehcfwdse Spondylosis; intervertebral disc disorders; other back problems (5 sources)Acute back pain with sciatica; Translations: [Lumbago with sciatica, right side]EpisodicSubstance-related disorders (11 sources)Cigarette smoker ; Translations: [Nicotine dependence, cigarettes, uncomplicated]Onset: 819916-26-1261PmvzjxiPyflbkiiojqh (1 source)IllnessOnset: 62-45-3885Hiijk infection (4 sources)Disease caused by 2019-nCoV; Translations: [COVID-19]Onset: 120472-23-5051Rsmoeebt Past or Other Problems Problem ClassificationProblemDateDocumented DateEpisodic/ChronicFever of unknown origin (2 sources)Fever; Translations: [Fever, unspecified]67-57-7259Dxvisyly Nonspecific chest pain (2 sources)Musculoskeletal chest pain; Translations: [Other chest pain] 84-31-1107KzdqawwnZihbp circulatory disease (2 sources)Pulmonary congestion ; Translations: [Other specified symptoms and signs involving the circulatory and respiratory systems]12-38-3779ObuhhaiuQtfom lower respiratory disease (2 sources)Cough; Translations: [Acute cough]17-20-2262DqoszkmmQobjuemx codes; unclassified (2 sources)Chill; Translations: [Chills (without fever)]72-56-7259Ycyzwqxt Residual codes; unclassified (2 sources)Generalized aches and pains; Translations: [Pain, unspecified] 47-66-2133LztwzhdqQemjgtkxuvzh (1 source)Contact with and (suspected) exposure to covid-19 Z20.822 Results Test NameValueInterpretationReference RangeFacilityMR Foot - left WO contraston 36-62-0284[place]np[place] [address] Magnetic Resonance Report Signed Patient: ARA BLACKBURN MR#: [id number] : 1960 Acct:[id number] Age/Sex: 64 / F ADM Date: 04/20/25 Loc: MRI Attending Dr: Gricel Mcclain D.P.M. Ordering Physician: Gricel Mcclain D.P.M. Date of Service: 04/20/25 Procedure(s): MR foot LT wo con Accession Number(s): [id number] cc: GRICEL JOAQUIN ; Gricel Mcclain D.P.M. The [place] [id number] Patient Name: ARA BLACKBURN MRN: [id number] date: 1960 Sex: F Assigned Patient Location: MRI Current Patient Location: MRI Accession/Order Number: [id number] Exam Date: 04/20/2025 14:47 Report Date: 04/20/2025 19:56 At the request of: GRICEL MCCLAIN DPNarendra Procedure: MR foot LT wo con MR foot LT wo con 04/20/2025 3:25 PM SIGNS AND SYMPTOMS: metatarsal stress fracture, left foot pain across metatarsals PROTOCOL: Multiplanar multisequence MR images of the left foot without contrast COMPARISON: 04/10/2025 FINDINGS: Lisfranc ligament: Intact. Hallux: Osseous: Normal. Extensor tendon: Normal. Flexor tendon: Normal. First metatarsophalangeal joint: Intact. Hallux-sesamoid complex: Normal. Second ray: Osseous: Normal. Extensor tendon: Normal. Flexor tendon: Normal. Second metatarsophalangeal joint: Intact. Plantar plate: Normal. Third ray: Osseous: Normal. Extensor tendon: Normal. Flexor tendon: Normal. Third metatarsophalangeal joint: Intact. Plantar plate: Normal. Fourth ray: Osseous: Normal. Extensor tendon: Normal. Flexor tendon: Normal. Fourth metatarsophalangeal joint: Intact. Plantar plate: Normal. Fifth ray: Osseous: Normal. Extensor tendon: Normal. Flexor tendon: Normal. Fifth metatarsophalangeal joint: Intact. Plantar plate: Normal. Interspaces: Interdigital (Greene) neuroma: None. Intermetatarsal bursitis: None. Soft tissues: Normal. Muscles: Normal. Bones: Edema traverses the anterior talar process extending towards the subtalar joints. This is nonspecific but may represent a healing fracture or stress injury. Subtle edema is also noted in the navicular and the cuboid. Nerves: Normal. Blood vessels: Normal. MR/MR foot LT wo con IMPRESSION: Edema traverses the anterior talar process extending towards the subtalar joints. This is nonspecific but may represent a healing fracture or stress injury. Subtle edema is also noted in the navicular and the cuboid. Metatarsals are intact and normal in signal. The soft tissues of the foot are within normal limits. Impression dictated by: Chris Kilgore M.D. 04/20/2025 7:56 PM Dictation Location: [place] [address] Electronically authenticated by: [id number] Y Date: 04/20/2025 19:56 Dictated By: Chris Kilgore M.D. Signed By: 04/20/251957 DD/ 55 TD/TT: Fur Dresser:MEKHIadiology, Radiologist, - 04/20/2025 [place] [address] Magnetic Resonance Report Signed Patient: ARA BLACKBURN MR#: [id number] : 1960 Acct:[id number] Age/Sex: 64 / F ADM Date: 04/20/25 Loc: MRI Attending Dr: Gricel Mcclain D.P.M. Ordering Physician: Gricel Mcclain D.P.M. Date of Service: 04/20/25 Procedure(s): MR foot LT wo con Accession Number(s): [id number] cc: GRICEL JOAQUIN ; Gricel Mcclain D.P.M. [place] [address] Patient Name: ARA BLACKBURN MRN: [id number] date: 1960 Sex: F Assigned Patient Location: MRI Current Patient Location: MRI Accession/Order Number: [id number] Exam Date: 04/20/2025 14:47 Report Date: 04/20/2025 19:56 At the request of: GRICEL MCCLAIN DPM Procedure: MR foot LT wo con MR foot LT wo con 04/20/2025 3:25 PM SIGNS AND SYMPTOMS: metatarsal stress fracture, left foot pain across metatarsals PROTOCOL: Multiplanar multisequence MR images of the left foot without contrast COMPARISON: 04/10/2025 FINDINGS: Lisfranc ligament: Intact. Hallux: Osseous: Normal. Extensor tendon: Normal. Flexor tendon: Normal. First metatarsophalangeal joint: Intact. Hallux-sesamoid complex: Normal. Second ray: Osseous: Normal. Extensor tendon: Normal. Flexor tendon: Normal. Second metatarsophalangeal joint: Intact. Plantar plate: Normal. Third ray: Osseous: Normal. Extensor tendon: Normal. Flexor tendon: Normal. Third metatarsophalangeal joint: Intact. Plantar plate: Normal. Fourth ray: Osseous: Normal. Extensor tendon: Normal. Flexor tendon: Normal. Fourth metatarsophalangeal joint: Intact. Plantar plate: Normal. Fifth ray: Osseous: Normal. Extensor tendon: Normal. Flexor tendon: Normal. Fifth metatarsophalangeal joint: Intact. Plantar plate: Normal. Interspaces: Interdigital (Greene) neuroma: None. Intermetatarsal bursitis: None. Soft tissues: Normal. Muscles: Normal. Bones: Edema traverses the anterior talar process extending towards the subtalar joints. This is nonspecific but may represent a healing fracture or stress injury. Subtle edema is also noted in the navicular and the cuboid. Nerves: Normal. Blood vessels: Normal. MR/MR foot LT wo con IMPRESSION: Edema traverses the anterior talar process extending towards the subtalar joints. This is nonspecific but may represent a healing fracture or stress injury. Subtle edema is also noted in the navicular and the cuboid. Metatarsals are intact and normal in signal. The soft tissues of the foot are within normal limits. Impression dictated by: Chris Kilgore M.D. 04/20/2025 7:56 PM Dictation Location: [place] [address] Electronically authenticated by: [id number] Y Date: 04/20/2025 19:56 Dictated By: Chris Kilgore M.D. Signed By: 04/20/251957 DD/ 55 TD/TT: Fur Dresser: SAW [facility] CenterRadiology Study observation (narrative)[facility] Foot - left WO contrastOrdered By: Radiologist Radiology on 32-61-7288IK[facility] Work Phone: XR FOOT LT MIN 3Von 03-09-5372MydRay[place] [id number] XRay Report Signed Patient: AAR BLACKBURN MR#: [id number] : 1960 Acct:[id number] Age/Sex: 64 / F ADM Date: 04/10/25 Loc: RAD Attending Dr: Gricel Mcclain D.P.M. Ordering Physician: Gricel Mcclain D.P.M. Date of Service: 04/10/25 Procedure(s): XR foot LT min 3V Accession Number(s): [id number] cc: GRICEL JOAQUIN ; Gricel Mcclain D.P.M. [address] [address] Patient Name: ARA BLACKBURN MRN: [id number] date: 1960 Sex: F Assigned Patient Location: RAD Current Patient Location: RAD Accession/Order Number: [id number] Exam Date: 04/10/2025 14:30 Report Date: 04/10/2025 14:47 At the request of: GRICEL MCCLAIN DPNarendra Procedure: XR foot LT min 3V LEFT [...] Jr., D.O. 04/10/2025 2:47 PM Dictation Location: [place] [address] Electronically authenticated by: [id number] Y Date: 04/10/2025 14:47 Dictated By: Vamsi Rodarte M.D. Signed By: 04/10/25 1449 DD/ 1447 TD/TT: Fur Dresser:TBHRadiology, Radiologist, - 04/10/2025 [place] [address] XRay Report Signed Patient: ARA BLACKBURN MR#: [id number] : 1960 Acct:[id number] Age/Sex: 64 / F ADM Date: 04/10/25 Loc: JOHNNIE Attending Dr: Gricel Mcclain D.P.M. Ordering Physician: Gricel Mcclain D.P.M. Date of Service: 04/10/25 Procedure(s): XR foot LT min 3V Accession Number(s): [id number] cc: GRICEL JOAQUIN ; Gricel Mcclain D.P.M. The [place] [id number] Patient Name: ARA BLACKBURN MRN: [id number] date: 1960 Sex: F Assigned Patient Location: RAD Current Patient Location: [facility] Accession/Order Number: [id number] Exam Date: 04/10/2025 14:30 Report Date: 04/10/2025 14:47 At the request of: GRICEL MCCLAIN DPNarendra Procedure: XR foot LT min 3V LEFT [...] Jr., D.O. 04/10/2025 2:47 PM Dictation Location: [place] [address] Electronically authenticated by: [id number] Y Date: 04/10/2025 14:47 Dictated By: Vamsi Rodarte M.D. Signed By: 04/10/25 1449 DD/ 1447 TD/TT: Fur Dresser: SAW WisemanRadiology Study observation (narrative)SAW HealthcareXR FOOT LT MIN 3VOrdered By: Radiologist Radiology on 58-88-0167RPYP [employer] Work Phone: ma MAMM SCREEN W/CAD IF PERF AND 3D [...] VERY IMPORTANT TO YOUR HEALTH. THE CURRENT [employer] [...] BI-RADS Category 2-Benign finding Recommendation: Normal interval follow-upFTRadiology, Radiologist, - 02/05/2025 Exam Date/Time: 02/03/2025 15:16 [...] VERY IMPORTANT TO YOUR HEALTH. THE CUR[employer]CER [...] Category 2-Benign finding Recommendation: Normal interval follow-up NOM[facility] HealthcareMA MAMM SCREEN W/CAD IF PERF AND 3D BILOrdered By: Radiologist Radiology on 05-72-9964EWON [employer] Work Phone: ma Mamm Screen w/CAD if perf and 3D Bilon 32-31-7208XG Mamm Screen w/CAD if perf and 3D BilExam Date/Time: 02/03/2025 15:16 EDT Reason for Exam: Z12.31 Report IMPRESSION: BIRADS 2 BENIGN FINDINGS, NORMAL INTERVAL FOLLOW-UP Follow-up: 12 MONTH RECALL Breast Density: Heterogeneously dense, which may obscure small masses. Vascular calcifications: Present. EXAM: [place] Mamm Screen w/CAD if perf and 3D [...] VERY IMPORTANT TO YOUR HEALTH. THE [employer]CER [...] BI-RADS Category 2-Benign finding Recommendation: Normal interval follow-upNoalOhio [facility] MAMM SCREEN W/CAD IF PERF AND 3D BILon 80-05-2033Zaiiauvtq Study observation (narrative)[facility] Eye+Orbit - bilateralon 27-47-7619Serccqixn: Cataract both eyes (OU) Testing Indication: Performed for preop measurements in the determination of an intraocular lens (IOL) for both eyes (OU) Test Reliability: Good quality both eyes (OU) Interpretation: Good measurements for intraocular lens (IOL) calculation purposes. Calculation made for both eyes (OU).[facility] Radiology Study observation (narrative)[facility] Chest, Low Dose Screeningon 76-13-7256MS Chest, Low Dose ScreeningExam Date/Time: 04/21/2024 15:51 EDT Reason for Exam: [...] on 08/05/2024 17:12 EST by Shady Zamarripa MDSelect [facility] CHEST, LOW DOSE SCREENINGon 22-36-9814Qrrgjndn by Radiology, Radiologist, on 04/23/2024 5:48 PM EDT Exam Date/Time: [...] on 08/05/2024 17:12 EST by Shady [facility]ripa [facility] Exam Date/Time: 04/21/2024 15:51 EDT Reason for [...] Shady Zamarripa MD Transcribed by: GEE Technologist: SYDNEY-CLINISYNCRadiology, Radiologist, - 08/05/2024 Exam Date/Time: 04/21/2024 15:51 [...] Zamarripa MD Transcribed by: GEE Technologist: SHAY [facility] CHEST, LOW DOSE SCREENINGOrdered By: Radiologist Radiology on 45-99-9452JGNLNorthwest Medical Center Work Phone: cT CHEST, LOW DOSE SCREENINGon 01-46-6364Wftqjzzxt Study observation (narrative)[facility] INFLUENZA A AND B AGon 41-34-9144ZCDJPHGLC VIRUS A ANTIGENNegativeTIMPANOGOS REGIONAL HOSPITAL HealthcareComment on above: Negative for Flu A protein antigen. Infection due to Flu A cannot be ruled out. Flu A antigen in the sample may be below the detection limit of the test. INFLUENZA VIRUS B ANTIGENNegativeNOWV HealthcareComment on above:Negative for Flu B protein antigen. Infection due to Flu B cannot be ruled out. Flu B antigen in the sample may be below the detection limit of the test. CLINISYNCNOSamaritan HospitalXR HIP BILAT 2 VIEWS + PELVISon 08-13-2023 Exam Date/Time: 08/12/2023 16:33 EST Reason for Exam: M25.552 Report IMPRESSION: There are no acute osseous changes. CLINICAL HISTORY: M25.552 2 views COMPARISON: NONE. Right hip FINDINGS: There are no lytic or sclerotic bone lesions. The femoral heads are located. There is no acute fracture or subluxation. There are no radiopaque foreign bodies. Ordering Provider: Gricel Joaquin FINAL REPORT Dictated: 08/13/2023 8:12 am Dante Griffin MD, V. Signed (Electronic Signature): 08/13/2023 8:12 am Signed by: Dante Griffin MD, V. Transcribed by: GEE Technologist: SHAY Technical Comments Radiation Dose: Ka,r in mGy = na DAP = naFTMCRadiology, Radiologist, - 08/13/2023 Exam Date/Time: 08/12/2023 16:33 EST Reason for Exam: M25.552 Report IMPRESSION: There are no acute osseous changes. CLINICAL HISTORY: M25.552 2 views COMPARISON: NONE. Right hip FINDINGS: There are no lytic or sclerotic bone lesions. The femoral heads are located. There is no acute fracture or subluxation. There are no radiopaque foreign bodies. Ordering Provider: Gricel Joaquin FINAL REPORT Dictated: 08/13/2023 8:12 am Dante Griffin MD, V. Signed (Electronic Signature): 08/13/2023 8:12 am Signed by: Dante Griffin MD, V. Transcribed by: GEE Technologist: SHAY Technical Comments Radiation Dose: Ka,r in mGy = na DAP = na [facility]IEWS + PELVISOrdered By: Radiologist Radiology on [phone] Medical Center Work Phone: XR SPINE LUMBOSACRAL MINIMUM 4 VIEWSon 08-13-2023 Exam Date/Time: 08/12/2023 16:33 EST Reason for Exam: M54.50 Report IMPRESSION: There is moderate spondylosis of the lumbar spine. CLINICAL HISTORY: M54.50 COMPARISON: Lumbar spine x-rays from 07/29/2018 FINDINGS: [...] tissues are within normal limits. Ordering Provider: Gricel Joaquin FINAL REPORT Dictated: 08/13/2023 8:15 am Dante Griffin MD, V. Signed (Electronic Signature): 08/13/2023 8:15 am Signed by: Dante Griffin MD, V. Transcribed by: GEE Technologist: SHAY Technical Comments Radiation Dose: Ka,r in mGy = na DAP = naFTMCRadiology, Radiologist, - 08/13/2023 Exam Date/Time: 08/12/2023 16:33 EST Reason for Exam: M54.50 Report IMPRESSION: There is moderate spondylosis of the lumbar spine. CLINICAL HISTORY: M54.50 COMPARISON: Lumbar spine x-rays from 07/29/2018 FINDINGS: [...] tissues are within normal limits. Ordering Provider: Gricel Joaquin FINAL REPORT Dictated: 08/13/2023 8:15 am Dante Griffin MD, V. Signed (Electronic Signature): 08/13/2023 8:15 am Signed by: Dante Griffin MD, V. Transcribed by: GEE Technologist: SHAY Technical Comments Radiation Dose: Ka,r in mGy = na DAP = na [facility]XR SPINE LUMBOSACRAL MINIMUM 4 VIEWSOrdered By: Radiologist Radiology on 39-36-4997[facility] Work Phone: No Panel Informationon 97-30-1895Rajcdgbct Study observation (narrative)[facility] HealthcareCOVID + FLU Quick Testingon 06-21-2023 SARS-CoV-2 (COVID-19) RNA AMINA+probe Ql (Unsp spec)NegativeNofitzgibbon hospital tagUin Other COVID + FLU Quick TestingPositiveNoPure Software Other COVID + FLU Quick TestingNegativeSaint John'S Saint Francis HospitalPure Software Other NM BONE SCAN LIMITon 57-02-5996JL BONE SCAN LIMIT EXAMINATION: NM BONE SCAN [...] Electronically authenticated by: HARJINDER WASHBURN Date: 2020-12-06 15:38[facility] Vital Signs Date TimeVital SignValuePerforming PksvinfovAlzcigbd10-54-5618 15:38-0400Body dminso446.2 Vivienne Joaquin MD Work Phone: noSamaritan HospitalIhzvadtkdd09-39-4842 15:38-0400Body mass index (BMI) [Ratio]23.4 kg/s8RypatAmin MD Work Phone: noSamaritan HospitalRfihjdanrg27-96-6759 15:38-0400Body temperature 98.2 [degF]Gricel Joaquin MD Work Phone: noSamaritan HospitalEmmrpkqkea25-47-6216 15:38-0400Body onatal12.77 kgPeAmin MD Work Phone: noSamaritan HospitalFxqquubylo39-94-1672 15:38-0400Diastolic blood kzusdprx02 mm[Hg]Gricel Joaquin MD Work Phone: noSamaritan HospitalPetvfhwstg21-68-8943 15:38-0400Heart ikur005 /min Gricel Joaquin MD Work Phone: noSamaritan HospitalMokcirkmsg29-80-1582 15:38-9289WzH9% (BldA) [Mass fraction]99 %Gricel Joaquin MD Work Phone: [facility] CenterMozszfeoiy54-78-9914 15:38-0400Systolic blood kqhtmdvi230 mm[Hg]Gricel Joaquin MD Work Phone: [facility] CenterWlftgtqfan67-56-0824 16:57-0400Body temperature 97.3 [degF]Ainsley Gonzalez EXCEL ANALYST-DEMOLITION SPECIALIST Work Phone: [facility]09-13-2025 16:57-0400Body aogjuv69.22 kgRahnarendra Carlos EXCEL ANALYST-DEMOLITION SPECIALIST Work Phone: [facility]09-13-2025 16:57-0400Diastolic blood dchfhtfy04 mm[Hg]Ainsley Gonzalez EXCEL ANALYST-DEMOLITION SPECIALIST Work Phone: [facility]09-13-2025 16:57-0400Heart rate 86 /minRahnarendra Carlos EXCEL ANALYST-DEMOLITION SPECIALIST Work Phone: [facility]09-13-2025 16:57-0400 Respiratory rate18 /minAinsley Gonzalez EXCEL ANALYST-DEMOLITION SPECIALIST Work Phone: [facility]09-13-2025 16:57-1442LbD7% (BldA) [Mass fraction]96 %Ainsley Gonzalez EXCEL ANALYST-DEMOLITION SPECIALIST Work Phone: [facility]09-13-2025 16:57-0400Systolic blood qbeirsff818 mm[Hg]Ainsley Gonzalez EXCEL ANALYST-DEMOLITION SPECIALIST Work Phone: [facility]07-11-2024 16:32-0400Body .2 Vivienne Joaquin MD Work Phone: [facility] CenterIgclhgbxkg59-62-3411 16:32-0400Body mass index (BMI) [Ratio]22.18 kg/d6NixvqGricel Joaquin MD Work Phone: [facility] CenterOrhqbfslok70-59-6925 16:32-0400Body temperature 97.81 [degF]Gricel Joaquin MD Work Phone: [facility] CenterSncklocuvj94-12-9294 16:32-0400Body .23 kgGricel Joaquin MD Work Phone: [phone] [place], [place] [address]Wcvkhhjiok15-65-8403 16:32-0400Diastolic blood oxjpcubf57 mm[Hg]Gricel Joaquin MD Work Phone: [phone]-[facility]North[facility] Medical CenterSpkamobnje26-84-1336 16:32-0400Heart rate85 /min Gricel Joaquin MD Work Phone: [facility] CenterVdfauypsej09-85-4068 16:32-4771MkW6% (BldA) [Mass fraction]93 %Gricel Joaquin MD Work Phone: [facility] CenterNpqhmssxqh86-14-1672 16:32-0400Systolic blood xkekciku736 mm[Hg]Gricel Joaquin MD Work Phone: [facility] CenterAtxhxrltec56-48-4284 14:59-0500Body xmgect670.2 Vivienne Joaquin MD Work Phone: [facility] CenterBbveapbqho70-34-6481 14:59-0500Body mass index (BMI) [Ratio]22.46 kg/s1JizmjGricel Joaquin MD Work Phone: [facility] CenterYzgdrvnnvn68-34-5944 14:59-0500Body temperature 97.59 [degF]Gricel Joaquin MD Work Phone: [facility] CenterYoybpsydyf76-92-4766 14:59-0500Body epnmxa48.05 kgGricel Joaquin MD Work Phone: [facility] CenterGlpjeladel57-24-7975 14:59-0500Diastolic blood mm[Hg]Gricel Joaquin MD Work Phone: [phone]-[facility] CenterAttvqgbhlg99-60-5939 14:59-0500Heart rate81 /min Gricel Joaquin MD Work Phone: [facility] CenterKirxysdbbr21-16-0889 14:59-2249GwV0% (BldA) [Mass fraction]96 %Gricel Joaquin MD Work Phone: noSamaritan HospitalJmikpgppsk19-69-2941 14:59-0500Systolic blood ctrtsivz587 mm[Hg]Gricel Joaquin MD Work Phone: [facility] CenterWycohfiqnp16-82-7399 10:05-0500Body .72 cmAmanda Mack Other [employer] Other 12-15-2023 10:05-0500Body mass index (BMI) [Ratio]21.5 kg/l6Ehhhvy Mack Other [employer] Other 12-15-2023 10:05-0500Body [degF]Olimpia Mack Other [employer] Other 12-15-2023 10:05-0500Body ivpxal82.14 kgAmanda Mack Other [employer] Other 12-15-2023 10:05-0500Diastolic blood tvkhzxoe62 mm[Hg] Olimpia Mack Other [employer] Other 12-15-2023 10:05-0500Respiratory rate18 /minAmanda Mack Other [employer] Other 12-15-2023 10:05-7126QfZ4% (BldA) [Mass fraction]95 % Olimpia Mack Other [employer] Other 12-15-2023 10:05-0500Systolic blood fwomgien816 mm[Hg] Olimpia Giron Other [employer] Other 10-23-2022 14:15-0400Body .72 cmSjennifergertrudeozzy Iman Other [employer] Other 10-23-2022 14:15-0400Body mass index (BMI) [Ratio] 20.83 kg/z4Vwuqynhfn Iman Other [employer] Other 10-23-2022 14:15-0400Body ihagazlazxn89.1 [degF] Katiejuan Valerio Other [employer] Other 10-23-2022 14:15-0400Body jzzmov39.14 kgStrejigertrudeozzy Iman Other [employer] Other 10-23-2022 14:15-0400Diastolic blood wzywjcwe24 mm[Hg] Katiejuan Valerio Other [employer] Other 10-23-2022 14:15-0400Respiratory rate18 /minSjenniferjuan Valerio Other [employer] Other 10-23-2022 14:15-8427UmT5% (BldA) [Mass fraction]94 % Katie Valerio Other [employer] Other 10-23-2022 14:15-0400Systolic blood pqrluwqj558 mm[Hg] Katiejuan Valerio Other [employer] Other Encounters Encounter DateEncounter TypeCare ProviderFacilityStart: 05-12-2025 End: 13-17-7515Rvozuu Derek Guerrero DO Work Phone: [facility] EyeStart: 05-12-2025 End: 08-99-7995Yjucxq Derek Guerrero DO Work Phone: [facility] EyeStart: 05-12-2025 End: 28-62-6628Cebldk follow up visit related to original Gabriel Guerrero DO Work Phone: noMer[facility] EyeComment on above:Pseudophakia (Primary Dx)Start: 05-12-2025 End: 90-22-0057qjxartrdjxJDZFMLPF D ZAHLERVinny AvailableStart: 04-26-2025 End: 55-61-7797Bemvtns encounter procedureGricel Joaquin MD Work Phone: [facility] HealthcareStart: 04-26-2025 End: 90-20-4703Ovtwctja preventive med est patient 40-64yrsPeter Corey Joaquin MD Work Phone: [facility] MedicineComment on above:Primary insomnia (Primary Dx); Smoking greater than 30 pack years; Estrogen deficiency; Screening for hypercholesterolemia; Screening for diabetes mellitus; Annual physical examStart: 04-26-2025 End: 48-13-9002ozoyzlwwlkIYTUGDana Cuevas AvailableStart: 04-26-2025 End: 37-91-8265Utkfrh Terrie Joaquin MD Work Phone: [facility] MedicineStart: 04-26-2025 End: 93-65-9221Nnvpde Terrie Joaquin MD Work Phone: [facility] MedicineStart: 04-20-2025 End: 05-50-5344Eifmprjph Result EncounterGeneric External Data ProviderNOMS External Department UnsolicitedStart: 04-20-2025 End: 04-49-9855Xzzhlxvbx Result EncounterGeneric External Data ProviderNOMS External Department UnsolicitedStart: 04-10-2025 End: 90-43-4650Qbihsdrqw Result EncounterGeneric External Data ProviderNOMS External Department UnsolicitedStart: 04-10-2025 End: 15-68-1437Yybyheuda Result EncounterGeneric External Data ProviderNOMS External Department UnsolicitedStart: 03-20-2025 End: 94-53-6301rtttsgdiggOSH A [facility] PPGStart: 03-20-2025 End: 22-66-5016Yymfrd outpatient new 30 minutesKinarendra Maradiaga Glide EXCEL ANALYST-DEMOLITION SPECIALIST Work Phone: [facility] PerrysburgComment on above:Viral illness (Primary Dx); Tobacco useStart: 02-23-2025 End: 79-64-1742Zaklnp follow up visit related to original pxChidi Whitehler DO Work Phone: [facility]oms [facility] EyeComment on above:Pseudophakia (Primary Dx)Start: 02-23-2025 End: 76-05-0691caqdpthsaoCCSWTXRE D ZAHLERNot AvailableStart: 02-23-2025 End: 74-43-7272Svyyqo flowsheetJogiahan Corey Zahler DO Work Phone: [facility] EyeStart: 02-23-2025 End: 51-43-9061Gnsbgi flowsheetDiamondhan Corey Zahler DO Work Phone: [facility] EyeStart: 02-16-2025 End: 61-69-3373Fmsaoz follow up visit related to original pxChidi Whitehler DO Work Phone: noms [facility] EyeComment on above:Pseudophakia (Primary Dx)Start: 02-16-2025 End: 38-54-4017juykinfltePHSVGUGM D ZAHLERNot AvailableStart: 02-16-2025 End: 37-78-4437Vbcagg flowsheetRemediosnathan Corey Zahler DO Work Phone: [facility] EyeStart: 02-16-2025 End: 32-19-9751Bckqox flowsheetJonathan Corey Zahler DO Work Phone: [facility] EyeStart: 02-10-2025 End: 82-05-3137Qozlca flowsheetChidi Mesaer DO Work Phone: [facility] EyeStart: 02-10-2025 End: 04-97-8551Fazpmk flowsheetChidi Mesaer DO Work Phone: [facility] EyeStart: 02-10-2025 End: 67-31-8752avcqgdrvkmYLEMNOOQ D ZAHLERNot AvailableStart: 02-10-2025 End: 89-51-6659Jeeiqs follow up visit related to original pxChidi Guerrero DO Work Phone: noms [facility] EyeComment on above:Pseudophakia (Primary Dx); Age-related nuclear cataract of left eyeStart: 02-03-2025 End: 79-44-5027llfwxaimehXxcwb D CrosbyFacility:FTMCStart: 02-03-2025 End: 79-27-6555Ngnsvmzvj Result EncounterPeter Corey Joaquin MD Work Phone: noms External Department UnsolicitedStart: 02-03-2025 End: 40-82-9529Lgygmgntv Result EncounterPeter Corey Joaquin MD Work Phone: noms External Department UnsolicitedStart: 01-30-2025 End: 71-68-9147PrltfzYzkxv D Crosby MD Work Phone: [facility]oms [facility] HospitalComment on above:Age- related osteoporosis without current pathological fractureStart: 01-12-2025 End: 91-40-3568Pchzgu flowsKashmir Guerrero DO Work Phone: noms NB OPHTStart: 01-12-2025 End: 33-58-2071Gkxnfj flowsKashmir Guerrero DO Work Phone: noms NB OPHTStart: 01-12-2025 End: 70-88-1129Sqfkyd outpatient new 45 minutesChidi Guerrero DO Work Phone: noms NB OPHTComment on above:Age-related nuclear cataract of both eyes (Primary Dx)Start: 01-12-2025 End: 41-85-7034tfisviddioLGQVMAWV D ZAHLERNot AvailableStart: 01-01-2025 End: 50-73-7981Fmjhuorog encounterPeter Corey Joaquin MD Work Phone: noms NE FMComment on above:Request For Order(s)Start: 11-14-2024 End: 16-21-5855RpbucgNufew D Crosby MD Work Phone: noms NE FMComment on above:Other depressionStart: 05-16-2024 End: 55-27-4956JmplezSqaih D Crosby MD Work Phone: noms NE FMComment on above:Other depression (CMS/HCC) Start: 04-21-2024 End: 10-56-8298knzrrymsvwAfcdh Corey JoaquinFacility:FTMCStart: 04-21-2024 End: 29-37-0369Ujcxecg encounter procedurePeter Corey Joauqin [facility] Start: 04-21-2024 End: 10-51-5944Hkcinervf Result EncounterPeter Corey Joaquin MD Work Phone: noms External Department UnsolicitedStart: 04-21-2024 End: 51-58-0593Xdelvxmdy Result EncounterPeter Corey Joaquin MD Work Phone: noms External Department UnsolicitedStart: 03-18-2024 End: 76-09-6496Grfgtx Bobby Lawrence NP Work Phone: noms NE FMStart: 03-18-2024 End: 89-28-3880Byzpjq flowsDaren Lawrence NP Work Phone: [facility] NE FMStart: 03-18-2024 End: 24-61-7726Ujpzsmjzc Result EncounterDabryan Radha Lawrence DIGITAL MARKETING CONSULTANT Work Phone: noms External Department UnsolicitedStart: 03-18-2024 End: 97-35-4875Qjwcetyjn encounterDabryan Radha Lawrence DIGITAL MARKETING CONSULTANT Work Phone: noms NE FMStart: 03-18-2024 End: 03-81-8201Ypboft outpatient visit 15 minutesDarafiqaviva Lawrence DIGITAL MARKETING CONSULTANT Work Phone: noms NE FMComment on above:Chills (Primary Dx); Chest congestion; Acute cough; Fever, unspecified fever cause; Body aches; COVIDStart: 02-25-2024 End: 84-00-8820Xzquixtti encounterPeErvin MD Work Phone: noms NE FMStart: 01-16-2024 End: 01-77-9467Fkaayk outpatient visit 25 minutesGricel Joaquin MD Work Phone: noms NE FMComment on above:Other insomnia (Primary Dx); Musculoskeletal chest painStart: 08-12-2023 End: 14-00-7024Wwkbrql encounter procedureGricel Joaquin [facility] Start: 08-12-2023 End: 41-61-3952Bznrgi outpatient visit 25 minutesGricel Joaquin MD Work Phone: noms NE FMComment on above:Chronic bilateral low back pain without sciatica (Primary Dx); Right hip pain; Left hip pain; Major depressive disorder, recurrent, mild (F33.0)Start: 08-12-2023 End: 62-10-9125Cifgdgynq Result EncounterPeErvin MD Work Phone: noms External Department UnsolicitedStart: 08-12-2023 End: 82-31-7212Yrhcdgnwh Result EncounterPeErvin MD Work Phone: noms External Department UnsolicitedStart: 06-21-2023 End: 35-12-1554hradirjlunPxzkqz Grob Other [facility] tagUin Other Start: 04-32-7687Vhenoo outpatient visit 15 minutes Olimpia AlejobFPG Urgent Care ClydeStart: 05-27-2023 End: 87-31-6361Fycmhxt encounter procedureSELF REFERRALLancaster Municipal Hospital Start: 10-02-2022 End: 59-59-0354Hnhhhtj encounter procedurePeter Corey Joaquin [facility] Start: 04-29-2022 End: 43-04-6447khytzmkvqqPnibwvxge Iman Other [facility] tagUin Other Start: 39-06-9002Tuiufh outpatient new 20 minutes Katie ValerioFPG Urgent Care ClydeStart: 04-17-2022 End: 84-77-0193Zrtmzli encounter procedurePeter Corey Joaquin [facility] Start: 12-02-2020 End: 04-15-6213zmephtjumzJL NICOLE Maradiaga PENSIEROFacility:H1 Procedures DateProcedureProcedure DetailPerforming ClinicianStart: 56-38-2422Spa lower extrem oth/thn jt w/o contr matrlGeneric External Data ProviderStart: 04-10-2025 XR FOOT LT MIN 3VGeneric External Data ProviderStart: 79-05-4127VJ MAMM SCREEN W/CAD IF PERF AND 3D BILPeter Corey Joaquin MD Work Phone: start: 43-72-4873ZgczcynxpoqJwcgq Crosby MD Work Phone: start: 73-12-1772Lfh bmtry prtl coher intrfrmtry io lens pwr Apolonia Guerrero DO Work Phone: Start: 15-57-5279HD CHEST, LOW DOSE SCREENINGPeErvin MD Work Phone: start: 79-80-5603DRN INFLUENZA A AND B Gera Garcia Howard DIGITAL MARKETING CONSULTANT Work Phone: start: 11-79-3085UD HIP BILAT 2 VIEWS + PELVISGricel Joaquin MD Work Phone: start: 17-70-3266VP SPINE LUMBOSACRAL MINIMUM 4 VIEWS Gricel Joaquin MD Work Phone: start: 04-25-2023H/O: hysterectomyStatus post hysterectomyPeAmin MD Work Phone: start: 87-16-5247PhlnppywdfbUnvfp Xvaier LUNDBERG Work Phone: Plan of Treatment DateCare ActivityDetailAuthorStart: 33-12-2551XAaM,Tdap and Td Vaccines (2 - Td or Tdap)DTaP,Tdap and Td Vaccines (2 - Td or Tdap)[facility], AvonedicGrand [facility]asc[facility] SystemStart: 10-87-0493Piltdculc for malignant neoplasm of colonNOMS HealthcareStart: 46-83-7101Ulxvctg ScreeningTobacco ScreeningProMedica [facility] SystemStart: 96-86-4249Hsregltaw for malignant neoplasm of breastMammogramNOWV Healthcare Start: 05-12-2025 End: 59-55-5955Rmlofwk encounter procedureNOMS [facility] EyeComment on above:ArrivedStart: 04-26-2025 End: 13-61-6800Enjzkst encounter procedureNOMS [facility] MedicineComment on above:ArrivedStart: 04-26-2025 End: 62-45-1276PR Chest for screening WO contrastCT lung screening low dose Imaging Routine Smoking greater than 30 pack years Expected: 04/26/2025,Expires: 04/26/2026[facility] Work Phone: comment on above:Expected: 04/26/2025, Expires: 04/26/2026Start: 04-26-2025 End: 35-77-6682JUU Skeletal system Views for bone densityDEXA bone density Imaging Routine Estrogen deficiency Expected: 04/26/2025, Expires: 04/26/2026 NOMS HealthcareComment on above:Expected: 04/26/2025, Expires: 04/26/2026Start: 04-26-2025 End: 17-76-3872Vnyvwki measurement, fastingGlucose, fasting Lab Routine Screening for diabetes mellitus Expected: 04/26/2025 (Approximate), Expires: 04/26/2026NOWV HealthcareComment on above:Expected: 04/26/2025 (Approximate), Expires: 04/26/2026Start: 04-26-2025 End: 56-10-4860Fhmft 1996 panel - Serum or PlasmaLipid panel Lab Routine Screening for hypercholesterolemia Expected: 04/26/2025 (Approximate), Expires: 04/26/2026NOWV HealthcareComment on above:Expected: 04/26/2025 (Approximate), Expires: 04/26/2026Start: 45-52-3512SNHTD-19 Vaccine ( season)COVID- 19 Vaccine ( season)[facility] SystemStart: 48-50-9695Ahvncmvtk vaccinationTIMPANOGOS REGIONAL [facility] HealthcareStart: 02-23-2025 End: 34-48-4208Dictzzr encounter wxemqynxq85/19/2025 3:00 PM EDT Office Visit [facility] [address] [place] [address] Chidi Guerrero DO [address] [place] [address] ArrivedNOMerit Health Rankin EyeComment on above:ArrivedStart: 02-16-2025 End: 72-79-8878Oorjkzx encounter procedureNOCOOPER [facility] OPHTComment on above:Arrived Start: 02-10-2025 End: 75-85-6754Evwobyk encounter habghrygd25/06/2025 1:15 PM EDT Office Visit [facility] [address] [place] [id number] Chidi Guerrero, DO [address] [place] [address] [facility]ITALViole[facility] EyeStart: 01-12-2025 End: 44-37-3189Ieoobuc encounter procedureNOMS NB OPHTComment on above:Arrived Start: 08-11-2024 End: 51-31-8600KO Hip - left 3 ViewsXR hip left 2 or 3 views Imaging Routine Left hip pain Expected: 08/11/2024, Expires: 08/12/2024NOWV HealthcareComment on above:Expected: 08/11/2024, Expires: 08/12/2024Start: 08-11-2024 End: 82-81-6449MN Hip - right 3 ViewsXR hip right 2 or 3 views Imaging Routine Right hip pain Expected: 08/11/2024 (Approximate), Expires: 08/12/2024[facility] Work Phone: Comment on above:Expected: 08/11/2024 (Approximate), Expires: 08/12/2024Start: 08-11-2024 End: 37-28-6108EB Lumbar spine 4 ViewsXR lumbar spine complete 4+ views Imaging Routine Chronic bilateral low back pain without sciatica Expected: 08/11/2024, Expires: 08/12/2024[facility] HealthcareComment on above:Expected: 08/11/2024, Expires: 08/12/2024Start: 03-18-2024 End: 20-62-9718YENAK-19 ANTIGEN ([facility])COVID-19 ANTIGEN ([facility]) Lab Routine Fever, unspecified fever cause Body aches Expected: 03/18/2024 (Approximate), Expires: 03/18/2025NOWV HealthcareComment on above:Expected: 03/18/2024 (Approximate), Expires: 03/18/2025Start: 03-18-2024 End: 85-97-2112Ggmwqanpv virus A+B Ag [Presence] in Unspecified specimen by ImmunoassayRapid influenza A/B antigens Microbiology Routine Chills Chest congestion Acute cough Fever, unspecified fever cause Body aches Expected: 03/18/2024 (Approximate), Expires: 03/18/2025[facility] Healthcare Work Phone: comment on above:Expected: 03/18/2024 (Approximate), Expires: 03/18/2025Start: 73-60-1082Ramaoyojr vaccinationInfluenza Vaccine (#1) [facility] HealthcareStart: 63-54-8190Nvjoszbhj for malignant neoplasm of breast MammogramNOMS HealthcareStart: 86-47-9161Uxhaafmxztck Vaccine: Pediatrics (0 to 5 Years) and At-Risk Patients (6 to 64 Years) (1 of 2 - PCV)Pneumococcal Vaccine: Pediatrics (0 to 5 Years) and At-Risk Patients (6 to 64 Years) (1 of 2 - PCV)[facility] HealthcareStart: 93-10-1878Jtkqt BMI ScreeningAdult BMI Screening [facility] SystemStart: 56-54-5521Djdzouupqn ScreeningDepression Screening [facility] SystemStart: 31-60-8449AFeY/Tdap/Td Vaccines (1 - Tdap) DTaP/Tdap/Td Vaccines (1 - Tdap)[facility] HealthcareStart: 97-11-8805SBJ Vaccines (1 of 1 - Standard series)MMR Vaccines (1 of 1 - Standard series)[facility] Start: 89-31-2708Znxmaetkk for malignant neoplasm of colonNOWV HealthcareStart: 80-73-7347Vquenhgmd for malignant neoplasm of lungLung Cancer Screening Shared Decision MakingNOWV HealthcareStart: 16-85-1278Uvnjpxq CounselingTobacco CounselingProPromedica Bay Park Hospitalca [facility] Immunizations Immunization DateImmunizationNotesCare ZzbefboaFswtdhab98-05-5812wfudmyuoa virus vaccine, unspecified formulationChidi Guerrero DO Work Phone: [facility] CenterKgoanncwgr37-69-6872Gplprwpsz, injectable, Madin Maru Canine Kidney, preservative free, quadrivalentPeAmin MD Work Phone: [facility] CenterYtfttuozqn07-67-0038ljeslglmo virus vaccine, unspecified formulationGricel Joaquin MD Work Phone: [phone] StreetFyqynnncbn27-79-8813ckwomeuve, injectable, quadrivalent, contains preservativeGricel Joaquin MD Work Phone: [phone] [place], [place] [address]Crokvzidld99-71-2436ffuzzm vaccine recombinant Gricel Joaquin MD Work Phone: [phone] [place], [place] [address]Srvqzognnm35-19-8636ifymdd vaccine recombinant Gricel Joaquin MD Work Phone: [phone] [place], [place] [address]Cdtnagijhv13-80-6208Yhnbhsenb, injectable, Madin Maru Canine Kidney, preservative free, quadrivalentKingter Xavier LUNDBERG Work Phone: [phone] [place], [place] [address]Phwjrgllyx84-73-2642nmiaxckpp, injectable, quadrivalent, preservative freeKingter Xavier LUNDBERG Work Phone: [phone] [place], [place] [id number], seasonal, injectable, preservative freeGricel Joaquin MD Work Phone: [phone] [place], [place] [address]Bjfguhozxq14-07-8398Alsxfkaja, injectable, Madin Redford Canine Kidney, preservative free, quadrivalentKingter Xavier LUNDBERG Work Phone: [phone] [place] [address] Payers DatePayer CategoryPayerPolicy [id number] [id number] Member Subscriber Plan / Payer (Effective 2019-Present) Name: Ara Blackburn Relation to Subscriber: Self Name: Ara Blackburn Payer ID: Not on file Type: Not on file Address: [address] [place] [id number] BCBS [id number] 2019-Present [phone] [address] [place] [id number] 2.16840.1.991144.3.57[id number] 2.840.1.440508.3.57[id number] 2.840.1.536775.3.57[id number] 2.16840.1.215138.3.57[id number] 2.840.1.532281.3.57[id number] 2.16840.1.797005.3.57[id number] 2.16840.1.322596.3.57[id number] 2.16840.1.194099.3.57[id number] 2.16840.1.079746.3.57[id number] 2.16.840.1.008563.3.579.2.[id number] Social History DateTypeDetailFacilityTobacco smoking statusOhio Valley Hospitaltart: 08-12-2023 End: 43-73-2915Ipb Assigned At BirthFemalSumma Health Barberton Campustart: 08-20-1979 End: 35-13-5349Hlpyyox smoking status NHISSmokes tobacco dailyNOMS Healthcare Start: 43-82-9022Qzvxeut of tobacco useCigarette SmokerNOMS HealthcareStart: 04-25-2023 End: 53-25-7055Gczimhbvkd smoked current (pack per day) - Kwcuzgmj1TWQR HealthcareHistory of tobacco usePassive smokerNOMS HealthcareStart: 04-25-2023 End: 32-23-2719Odgiwlp use and exposureSmokeless tobacco non-userNOMS Healthcare Start: 08-12-2023 End: 67-22-7707Tqsnnbx intakeLifetime non-drinker (finding)[facility]S HealthcareWithin the last year, have you been afraid of your partner or ex-partner?NoNOMS HealthcareStart: 51-50-2686Trzpwr the last year, have you been humiliated or emotionally abused in other ways by your partner or ex-partner?Patient refused [facility] HealthcareAre you now , , , , never or living with a partner?MarriedNOMS HealthcareHow often to you have a drink containing alcohol?2-4 times a monthNOMS HealthcareHow many standard drinks containing alcohol do you have on a typical day?1 or 2NOMS HealthcareHow often do you have 6 or more drinks on 1 occasion?NeverNOMS HealthcareHow hard is it for you to pay for the very basics like food, housing, medical care, and heating Somewhat hardNOMS HealthcareDo you feel stress - tense, restless, nervous, or anxious, or unable to sleep at night because yourmind is troubled all the time - these days [OSQ]To some extentNOMS Healthcare(I/We) worried whether (my/our) food would run out before (I/we) got money to buy more.Never [facility] Start: 79-28-7205Vgo Assigned At BirthNot on fileTIMPANOGOS REGIONAL HOSPITAL HealthcareStart: 66-08-1582Msgcdlb use and exposureUser of smokeless tobaccoTIMPANOGOS REGIONAL HOSPITAL HealthcareStart: 99-83-3620VnhJbhzat (finding)[facility] SystemStart: 04-20-2025 End: 83-01-5321Gkdxyntnm beverage intakeCurrent drinker of alcohol (finding)[facility] CenterAre you now , , , , never or living with a partner?WidowedNorthwest Medical CenterHow often do you have a drink containing alcohol?Monthly or lessNorthwest Medical Center Functional Status RwhoBvrrsujmvwBrdoyaTmzxoeql87-00-0515Egrlqdg Health Questionnaire 2 item (PHQ- 2) [Reported][facility] Medical CenterYmnqukynky10-04-9141Rkpsw score [AUDIT-C][facility] 14-13-7364Aeo often do you have a drink containing alcohol?Monthly or lessNorthwest Medical CenterWxrifqxloh58-96-0225Vix many standard drinks containing alcohol do you have on a typical day?1 or 2NOMS Bgohdxrsnc02-91-8737Kbk often do you have 6 or more drinks on 1 occasion?[facility] Clinical Notes 04-29-2022 to 05-12-2025 Note Date & EjpnEtymWfonhehq44-49-9264 History of Present illness Narrative* Chidi Guerrero DO - 05/12/2025 8:45 AM EST Images from the original note were not included. Assessment/Plan Diagnoses and all orders for this visit: Pseudophakia - s/p CE OD (1mth): Patient should be close to off all post-op meds. Pt. received final refraction for this eye today. - Pt is status post (s/p) cataract extraction (CE) both eyes (OU) and looks good. She has been provided a copy of a final Rx to return to [facility]. I have asked that she see [facility] in 2 months for a DFE. documented in this encounterNorthwest Medical CenterMtucquyzas71-31-2795 History of Present illness Narrative* Gricel Joaquin MD - 04/26/2025 3:45 PM EDT Images from the original note were not included. Ara Blackburn is a 64 y.o. female presents with chief complaint of Annual Exam HPI: History of Present Illness The patient is a 64-year-old female who presents for evaluation of anxiety and depression, foot fracture, and health maintenance. She reports feeling well overall, with no new health issues. She is not experiencing any chest painor shortness of breath. She has discontinued her antidepressant medication and has also reduced heruse of BuSpar, which she only takes occasionally. She expresses a desire to resume trazodone for sleep management. She mentions experiencing some discomfort from brain zaps during the discontinuation process. The patient reports a recent foot fracture that is still in the healing process. Her manager hi hasinformed her that her foot is demineralizing, suggesting possible arthritis. She has undergone several bone density tests in the past. She underwent a mammogram in the spring and does not believe another one is necessary at this time.She reports no new skin abnormalities such as lumps, bumps, or moles, but notes the presence of agespots. She received her influenza vaccine on 04/23/2025 and plans to get the high-dose version nextyear when she turns 65. She has only received one COVID-19 vaccine to date. 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 She has received offers from the rehab community and desires more flexibility in her life. 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 Respiratory: Negative for cough and shortness of breath. Cardiovascular: Negative for chest pain, palpitations and leg swelling. Gastrointestinal: Negative for abdominal pain, constipation, diarrhea, nausea and vomiting. Skin: Negative for rash. Neurological: Negative for dizziness and light-headedness. Medical, Surgical, Family, and Social History reviewed. OBJECTIVE: Visit Vitals BP 118/82 (BP Location: Left arm, Patient Position: Sitting, BP Cuff Size: Adult) Pulse (!) 113 Temp 98.2 F (Temporal) Ht 5' 7 Wt 149 lb 6.4 oz LMP (LMP Unknown) SpO2 99% BMI 23.40 kg/m OB Status Hysterectomy Smoking Status Every Day BSA 1.79 m BP Readings from Last 3 Encounters: 04/26/25 118/82 01/16/24 118/72 08/12/23 116/68 Wt Readings from Last 3 Encounters: 04/26/25 149 lb 6.4 oz 01/16/24 141 lb 9.6 oz 08/12/23 143 lb 6.4 oz Physical Exam Vitals reviewed. HENT: Head: Normocephalic and atraumatic. Mouth/Throat: Mouth: Mucous membranes are moist. Cardiovascular: Rate and Rhythm: Normal rate and regular rhythm. Heart sounds: No murmur heard. Pulmonary: Effort: Pulmonary effort is normal. Breath sounds: Normal breath sounds. Abdominal: General: Bowel sounds are normal. Palpations: Abdomen is soft. Musculoskeletal: General: Normal range of motion. Skin: General: Skin is warm and dry. Neurological: General: No focal deficit present. Mental Status: She is alert. Psychiatric: Mood and Affect: Mood normal. Physical Exam Cardiovascular: Regular rate and rhythm, no murmurs, rubs, or gallops Results Labs - Cholesterol levels: 2022, Good cholesterol was high and bad cholesterol was slightly over the desired level. - Blood sugar: 2022, Normal ASSESSMENT AND PLAN: Assessment & Plan 1. Anxiety and depression: - She has weaned off her antidepressants and is currently managing her anxiety with BuSpar, which she takes infrequently. - She requested to go back on trazodone to help with sleep. - A prescription for trazodone 100 mg will be provided to help with sleep. 2. Foot fracture: - She reports a stress fracture in her foot that is still healing. - She has been advised to tie her shoe tightly for support. - A DEXA scan will be ordered to assess bone density, especially since her foot doctor mentioned demineralization. 3. Health maintenance: - Her cholesterol levels were last checked in 2022, showing slightly elevated LDL levels. Blood glucose levels were within the normal range. - A CT scan of the chest will be ordered to screen for any early signs of abnormalities. - Fasting labs will be ordered to recheck cholesterol and screen for diabetes. - She received her influenza vaccine last Saturday and will consider the high-dose flu shot next year. Assessment/Plan Health Maintenance Due Topic Date Due Lung Cancer Screening Shared Decision Making Never done [1] Allergies Allergen Reactions Sulfanilamide Anaphylaxis Cephalexin Other Reaction(s): Tingling Tongue Ciprofloxacin Other Reaction(s): hives documented in this encounterNorthwest Medical CenterVdxornszjs30-99-5172 History of Present illness Narrative* Ainsley Gonzalez, STAN-DEMOLITION SPECIALIST - 03/20/2025 4:30 PM EDT Subjective: Patient ID: Ara Blackburn is a [...] past medical history, past social history, past surgicalhistory and problem list. Review of Systems Constitutional: [...] (Patient not taking: Reported on 03/20/2025) prednisoln mx-mkkgynnc-dxcfcbi 1-0.5-0.075 % drops Instill 1 drop to [...] tenderness or frontal sinus tenderness. Mouth/Throat: Lips: [place]. Mouth: Mucous membranes are moist. Pharynx: Uvula [...] Placed or Reconciled This Encounter Medications prednisoln cm-mxwzfdkx-vmohtji 1-0.5-0.075 % drops Sig: Instill 1 drop [...] a primary care practice. NEED A PROVIDER? 800-PPG DOCS // or ppgdocs. If you have been prescribed any medications during your visit today, those medications have been discussed with you including: Dose, frequency, duration, and potential side effects. Every individual responds differently to each medication, please use caution until you understand how each medicationaffects you individually. If you have been recommended actp-cvb-mfhchhl medications please use those medications as indicated [...] concerning symptoms of illness develop, follow up withyour primary care provider or go to the nearest Emergency Department for further care immediately. FELIPE Mera 03/21/25 0721 documented in this encounterMer[facility] Instructions* Patient Instructions* FELIPE Mera - 03/20/2025 4:30 PM EDT [...] a primary care practice. NEED A PROVIDER? -800-PPG DOCS // or ppgdocs. If you have been prescribed any medications during your visit today, those medications have been discussed with you including: Dose, frequency, duration, and potential side effects. Every individual responds differently to each medication, please use caution until you understand how each medicationaffects you individually. If you have been recommended hupa-sxo-zyhfffl medications please use those medications as indicated on their packaging detail. * Attachments The following attachments cannot be sent through Care Everywhere. * Quitting smoking for adults ([place]ri [place]ankan) * Environmental allergies in adults ([place]ankan) * Cough? Adult ED ([place]an) documented in this encounterMercy Health [facility]08-19-2025 History of Present illness Narrative* Chidi Guerrero DO - 02/23/2025 3:00 PM EDT Images from the original note were not included. Assessment/Plan Diagnoses and all orders for this visit: Pseudophakia - s/p CE OS (POD #7): Patient provided with post-op form. Instructed to continue drops. Discontinueeye shield. Instructed to call immediately with increased pain, redness, decreased vision, questions or concerns. documented in this encounterNorthwest Medical CenterRzlxspvxkl48-41-6733 History of Present illness Narrative* Chidi Guerrero DO - 02/16/2025 3:00 PM EDT Images from the original note were not included. Assessment/Plan Diagnoses and all orders for this visit: Pseudophakia - s/p CE OS (POD #1): Patient provided with post-op form. Instructed to continue drops as well as shield. Instructed to call immediately with increased pain, redness, decreased vision, questions or concerns. documented in this encounterNorthwest Medical CenterFrxakvnuye82-76-4387 History of Present illness Narrative* Chidi Guerrero DO - 02/10/2025 1:15 PM EDT Images from the original note were not included. Assessment/Plan Diagnoses and all orders for this visit: Pseudophakia - s/p CE OD (POD #7): Patient provided with post-op form. Instructed to continue drops. Discontinueeye shield. Instructed to call immediately with increased [...] different lens options were explained including the gyy-bw-otpmok fees for any upgrades. Intraocular lens (IOL) [...] Extremities: no pitting edema. documented in this encounterNorthwest Medical CenterAvrscaaxuz42-03-6618 History of Present illness Narrative* Chidi Guerrero DO - 01/12/2025 1:00 PM EDT Images from the original note were not [...] Medications (Ophthalmic Agents) Medication Sig Dispense Refill Qhyvxtfywft-Wwuolycb-Mtrntwxul 1-0.5-0.075 % solution Administer 1 drop into affected eye(s) in themorning and 1 drop at noon and 1 [...] tablet 1 cholecalciferol (Vitamin D-3) 50 MCG (2000 UT) [...] @ 1:05 PM Additional Tests Keratometry K1 Bristol K2 Bristol Right 44.00 169 44.75 79 Left 44.75 [...] Normal Normal Refraction Wearing Rx Sphere Cylinder [place] Add Right -1.50 -0.75 158 +2.25 Left -2.00 -0.25 117 +2.00 Manifest Refraction Sphere Cylinder [place] Right -1.00 -0.75 113 Left -2.25 -0.25 063 Final Rx Sphere Cylinder [place] Dist [place] Right -1.00 -0.75 145 20/50 [...] different lens options were explained including the jma-az-exzrgh fees for any upgrades. Intraocular lens (IOL) [...] and OS - 02/15. documented in this encounterNorthwest Medical CenterHebnrclmrz47-72-8465 Telephone encounter Note* Telephone Encounter - Bliase Gilbert - 01/01/2025 3:33 PM EDT Pt would like a mammogram, she [place] [facility] CenterGshxcejeho63-64-9822 Miscellaneous Notes* Telephone Encounter - Blaise Gilbert - 01/01/2025 3:33 PM EDT Pt would like a mammogram, she asked [place] [facility] documented in this [facility]11-06-2024 Telephone encounter Note* Telephone Encounter - Lisa Lawrence NP - 05/13/2024 2:31 PM EST error [facility] Work Phone: [phone] Miscellaneous Notes* Telephone Encounter - Lisa Lawrence NP - 05/13/2024 2:31 PM EST error documented in this [facility]09-11-2024 History of Present illness Narrative* Lisa Lawrence NP - 03/18/2024 10:00 AM EDT Ara Blackburn is a 63 y.o. female [...] 50 MCG (1999) tablet Every 24 hours diclofenac (Voltaren) 75 [...] influenza A/B antigens; Future - COVID-19 ANTIGEN ([facility]); Future Body aches - Rapid influenza A/B antigens; Future - COVID-19 ANTIGEN ([facility]); Future COVID test results positive. Patient advised to increase fluid intake, eating frequent small meals.Patient advised to monitor symptoms if worsening or persistent to return to clinic or go to ER. Theupdated Respiratory Virus Guidance recommends that people stay [...] and coordination of care. documented in this encounterNorthwest Medical CenterBxyuymgyhe63-33-8834 History of Present illness Narrative* Gricel Joaquin MD - 01/16/2024 4:30 PM EDT Images from the original note were not [...] 50 MCG (1999) tablet Every 24 hours diclofenac (Voltaren) 75 [...] Influenza Vaccine (1) 03/08/2024 documented in this encounterNorthwest Medical CenterNagxesxhis21-00-9688 History of Present illness Narrative* Sugar Jayant - 08/12/2023 3:15 PM EST Ara Blackburn is a 62 y.o. female presents with chief complaint of lower back and hip pain. HPI: Pt here today for pain in lower back and hips. Pt states she has had pain and discussed pain beforebut it has been getting worse. She states [...] by mouth in the morning and 1 tablet(75 mg) before bedtime. Do not crush, chew, or split. Right hip pain Assessed. Xrays ordered. Diclofenac prescribed. - XR hip right 2 or 3 views; Future - diclofenac (Voltaren) 75 MG EC tablet; Take 1 tablet (75 mg) by mouth in the morning and 1 tablet(75 mg) before bedtime. Do not crush, chew, or split. Left hip pain Assessed. Xrays ordered. Diclofenac prescribed. - XR hip left 2 or 3 views; Future - diclofenac (Voltaren) 75 MG EC tablet; Take 1 tablet (75 mg) by mouth in the morning and 1 tablet(75 mg) before bedtime. Do not crush, chew, or split. Entered by _Hasmukh_, acting as scribe for _Xavier_. Signature _Michelle LUNDBERG_ Date _08/12/2023_. The documentation recorded by the scribe accurately reflects the service(s) I personally performed and the decisions I made. documented in this encounterNorthwest Medical CenterDqsevsxacy81-89-0014 Evaluation note* Encounter Date Diagnosis Assessment Notes Treatment Notes Treatment Clinical Notes Jun, Contact with and (mckeon spected) exposure to covid-19 (ICD-10 - Z20.822) Jun,Influenza A (ICD-10 - J10.1)You were seen here today for your cough, congestion, body aches for the past 5 days. You were tested for covid and flu. You tested positive for FLU A. Rest, drink plenty of fluids, take tylenol as nee ded for fever, discomfort/body aches. Tamiflu is not recommended as you are 5 days in with symptoms. You are being prescribed benzonatate or tessalon perles for your cough and flonase nasal spray foryour congestion. Follow up with your primary doctor if symptoms persist. Go to the ER if you develop shorntess of breath, chest pain. [facility] Other 10-23-2022 Evaluation note* Encounter Date Diagnosis Assessment Notes Treatment Notes Treatment Clinical Notes Apr, Acute right-sided lo w back pain with right-sided sciatica (ICD-10 - [...] occur., Sciatica home care material was printed [facility] Other Evaluation + Plan note No data available for this section [facility]* Diagnosis Chronic bilateral low back pain without sciatica- Primary Right hip pain Pain in joint, pelvic region and thigh Left hip pain Pain in joint, pelvic region and thigh Major depressive disorder, recurrent, mild (F33.0) Major depressive disorder, recurrent episode, mild documented in this encounter [facility]Evaluation [facility]* Diagnosis Other depression ([facility]) documented in this encounter [facility] HealthcareEvaluation note* Diagnosis Other insomnia- Primary Musculoskeletal chest pain Other chest pain documented in this encounter [facility] HealthcareEvaluation note* Diagnosis Chills- Primary Chills (without fever) Chest congestion Other symptoms involving respiratory system and chest Acute cough Fever, unspecified fever cause Body aches Generalized pain COVID documented in this encounter [facility]* Diagnosis Other depression documented in this encounter [facility]* Diagnosis Age-related nuclear cataract of both eyes- Primary documented in this encounter [facility] HealthcareEvaluation note* Diagnosis Age-related osteoporosis without current pathological fracture documented in this encounter [facility] HealthcareEvaluation note* Diagnosis Pseudophakia- Primary Lens replaced by other means Age-related nuclear cataract of left eye documented in this encounter [facility] HealthcareEvaluation note* Diagnosis Pseudophakia- Primary Lens replaced by other means documented in this encounter [facility]* Diagnosis Viral illness- Primary Unspecified viral infection, in conditions classified elsewhere and of unspecified site Tobacco use [facility]* Diagnosis Primary insomnia- Primary Persistent disorder of initiating or maintaining sleep Smoking greater than 30 pack years Estrogen deficiency Other ovarian failure Screening for hypercholesterolemia Screening for lipoid disorders Screening for diabetes mellitus Annual physical exam Routine general medical examination at a health care facility documented in this encounter [facility]* Diagnosis Pseudophakia- Primary Lens replaced by other means documented in this encounter [facility] HealthcareHistory general Narrative - Reported* Type Description Date Medical History ANXIETY Medical HistoryDEPRESSIONMedical HistoryOSTEOPORESISSurgical HistoryC-SECTION Surgical HistoryHYSTERECTOMYSurgical HistoryKIDNEY STENTS N6Dayagtzjluunocr HistorySEE ABOVE [facility] Other Hospital Discharge instructions No data available for this section [facility] No data available for this section [facility] Summary Purpose Family History No Family [...] section and content) DATE CREATED AUTHOR 12/07/2020 [facility] DATE CREATED AUTHOR AUTHOR'S ORGANIZ ATION 02/14/2025 [facility] DATE CREATED AUTHOR AUTHOR'S ORGANIZ ATION 03/22/2025 [facility] DATE CREATED AUTHOR AUTHOR'S ORGANIZ ATION 05/13/2025 [facility] EPIC Patient Care team informatio n (unrecognized section and content) Team MemberRelationshipSpecialtyStart DateEnd Date Gricel Joaquin MD [address] [place] [address] PCP - GeneralFamily Medicine11/13/22Team MemberRelationshipSpecialtyStart DateEnd Date Gricel Joaquin MD [address] [place] [address] PCP - [employer]11/05/20 Gricel Joaquin MD [address] [place] [address] PCP - GeneralFamily Medicine11/13/22Team MemberRelationshipSpecialtyStart DateEnd Gricel Joaquin MD [address] [place] [address] PCP - [employer]11/05/20 Gricel Joaquin MD [address] [place] [address] PCP - GeneralFamily Medicine11/13/22Team MemberRelationshipSpecialtyStart DateEnd Gricel Joaquin MD [address] [place] [address] PCP - [employer]11/05/20 Gricel Joaquin MD [address] [place] [address] PCP - GeneralFamily Medicine11/13/22am MemberRelationshipSpecialtyStart DateEnd Gricel Joaquin MD [address] [place] [address] PCP - [employer]11/05/20 Gricel Joaquin MD [address] [place] [address] PCP - GeneralFamily Medicine11/13/22Team MemberRelationshipSpecialtyStart DateEnd Gricel Joaquin MD [address] [place] [address] PCP - [employer]11/05/20 Gricel Joaquin MD [address] [place] [address] PCP - GeneralFamily Medicine11/13/22Team MemberRelationshipSpecialtyStart DateEnd Date Gricel Joaquin MD [address] [place] [address] PCP - GeneralFamily Medicine11/13/22Team MemberRelationshipSpecialtyStart DateEnd Date Gricel Joaquin MD [address] [place] [address] PCP - GeneralFamily Medicine11/13/22Team MemberRelationshipSpecialtyStart DateEnd Date Gricel Joaquin MD [address] [place] [address] PCP - GeneralFamily Medicine11/13/22Team MemberRelationshipSpecialtyStart DateEnd Date Gricel Joaquin MD [address] [place] [address] PCP - GeneralFamily Medicine11/13/22Team MemberRelationshipSpecialtyStart DateEnd Date Gricel Joaquin MD [address] [place] [address] PCP - GeneralFamily Medicine11/13/22Team MemberRelationshipSpecialtyStart DateEnd Date Gricel Joaquin MD [address] [place] [address] PCP - GeneralFamily Medicine11/13/22Team MemberRelationshipSpecialtyStart DateEnd Date Gricel Joaquin MD [address] [place] [address] PCP - GeneralFamily Medicine11/13/22am MemberRelationshipSpecialtyStart DateEnd Date Gricel Joaquin MD [address] [place] [address] PCP - GeneralFamily Medicine11/13/22am MemberRelationshipSpecialtyStart DateEnd Date Gricel Joaquin MD [address] [place] [address] PCP - GeneralFamily Medicine11/13/22am MemberRelationshipSpecialtyStart DateEnd Date Gricel Joaquin MD [address] [place] [address] PCP - GeneralFamily Medicine11/13/22am MemberRelationshipSpecialtyStart DateEnd Date Gricel Joaquin MD [address] [place] [address] PCP - [employer] Griecl Joaquin MD [address] [place] [address] PCP - GeneralFamily Medicine11/13/22Team MemberRelationshipSpecialtyStart DateEnd Date Gricel Joaquin MD [address] [place] [address] PCP - [employer] Gricel Joaquin MD [address] [place] [address] PCP - [facility]11/13/22Team MemberRelationshipSpecialtyStart DateEnd Date Gricel Joaquin MD [address] [place] [address] PCP - [facility]11/13/22 REASON FOR VISIT (unrecogniz ed section and content) ReasonCommentsMed RefillReasonCommentsRib InjuryPt here for right lower rib pain ReasonOnset DateCommentsRequest For Order(s)01/01/2025ReasonCommentsCataract ReasonCommentsPost-op Qgdkae-xxCqvjlqbeAambzuTksthnhgVlwj-qk Follow-upReason CommentsPost-opReasonCommentsIllnessSx starting 3 weeks ago with headaches , nausea , fatigue , body aches ,chills , coughing , sinus pressure .Reason CommentsAnnual Exam FOR RECORDS PERTAINING TO PATIENTS WHO ARE [...] BE BASED ON THE PRIMARY CLINICAL RECORDS. [employer] provides no warranty or guarantee of the accuracy or completeness of information in this document.
--- NOTE | 2025-05-21 14:09 | CT_ITS ---
[address] [address] Patient Name: ARA BLACKBURN MRN: [id number] date: 1960 Sex: F Assigned Patient Location: [facility] Current Patient Location: RAD Accession/Order Number: [id number] Exam Date: 05/21/2025 14:18 Report Date: 05/21/2025 23:38 At the request of: GRICEL JOAQUIN Procedure: CT lung screening low-dose CT lung screening low-dose 05/21/2025 2:23 PM SIGN AND SYMPTOMS: ^smoking greater than 30 pack years TECHNIQUE: Multidetector CT axial slices of the chest were obtained without IV contrast. Multiplanar reformats were performed and viewed on a separate workstation and reviewed to further define anatomy and possible pathology. CT was performed with one or more of the following dose reduction techniques: Automated exposure control, adjustment of the mA and/or kV according to patient size, or use of iterative reconstruction technique. COMPARISON: None.. FINDINGS: Lower neck: Thyroid gland within normal limits, no supraclavicle adenopathy. Vessels: Atherosclerotic changes are noted in the thoracic aorta, origins of the great vessels, and aortic annulus. Mediastinum and Lashell: Within normal limits. Heart: Normal size. No pericardial effusion. Airways: Within normal limits Lungs: There is scarring in the lung apices. There is a 4 mm noncalcified nodule in the left upper lobe on series 4 image 122. There is a 2 mm noncalcified nodule within the right lower lobe on series 4 image 165. Pleura: Within normal limits. Chest Wall: Within normal limits. Upper Abdomen: Atherosclerotic changes are noted in the abdominal aorta. Bones: Degenerative changes are noted in the thoracic spine and cervical spine. There is a remote appearing compression deformity in the T12 superior endplate. CT/CT lung screening low-dose IMPRESSION: Lung RADS version 1.0 assessment category: 2 (benign appearance or behavior) Recommendation: Follow-up with low-dose CT of the chest in 12 months is recommended. Impression dictated by: Chris Kilgore M.D. 05/21/2025 11:38 PM Dictation Location: [place] [address] Electronically authenticated by: [id number] Y Date: 05/21/2025 23:38
== END 2025-05-21 14:00 | disposition home or self-care (01) ==
LOC: RAD 13:59
PROVIDERS: PCP Family Medicine; Visit Provider Family Medicine
DX: F17.210 Nicotine dependence, cigarettes, uncomplicated (principal); E28.39 Other primary ovarian failure; M81.0 Age-related osteoporosis without current pathological fracture; M85.88 Other specified disorders of bone density and structure, other site
CPT/HCPCS: 71271; 77080